=== PATIENT | male | born 1955 | race Caucasian/White ===

== ENCOUNTER 2017-02-03 12:52 | Inpatient (IN) | payer BC, OTHER ==
[~2017-02-03] VITALS: Ht 160 cm; Wt 76.8 kg
[~2017-02-03 12:52] MED LIST: AMLO-114 PO; ASPCH81 PO; ATOR-26 PO; CARV6.252 PO; INSPMPNVLG; ISOS60TA PO; LOSA1TAB38 PO; MAGN400T24 PO; NITR0.4S SL; PANT1TAB48 PO; PRAS1TAB6 PO
[2017-02-03] MEDS ORDERED: NITROGLYCERIN 0.4 MG SL PER TAB CHARGE SL STA (13:28)
--- NOTE | 2017-02-03 13:28 | EMERGENCY ROOM VISIT NOTE ---
History Report prepared by Vamshi: Abril Frederick Under the Supervision of: Dr. Billy Hammond M.D. First contact with patient: 13:16 Chief Complaint: CHEST PAIN Stated Complaint: CHEST PAIN,SOB History of Present Illness The patient is a 61 year old male who presents to the Emergency Room with complaints of intermittent chest pain and shortness of breath that began a few weeks ago. He notes that the pain and breathing difficulties are brought on with exertion. This morning, the patient went on the treadmill around 6AM for his routine workout and could only do about half of his workout before he developed chest pain and shortness of breath. He also began to feel nauseated this morning. Currently, he has slight shortness of breath and chest pain which he rates a 2/10 in severity. He took Nitro 3.5 hours ago when his pain was a 7-8 /10 with some relief. He takes a baby aspirin daily. He is also on Effient. The patient follows with Dr. Dc of [facility] due to a personal history of heart disease. His most recent heart catheterization was in April 2015 in [place]. He did not have stents placed at that time, but has had 9 stents placed in the past. He had an echo stress test last November. Denies black or bloody stool, abdominal pain, recent trauma or injury, or other complaints. Past medical history includes diabetes. He has an insulin pump and his sugars have been normal - his sugar this morning was 110. Source of History: patient, spouse/significant other Onset: a few weeks ago Position: chest Timing: intermittent Modifying Factors (Worsening): exertion Modifying Factors (Relieving): other (Nitro) Associated Symptoms: + SOB, + nausea, No abdominal pain, No hematochezia, No melena Review of Systems See HPI for pertinent positives & negatives. A total of 10 systems reviewed and were otherwise negative. Past Medical & Surgical Medical Problems: (1) Chest pain (2) Diabetes (3) Heart disease (4) SOB (shortness of breath) Surgical Problems: (1) Stented coronary artery Old medical records were reviewed. Nurse's notes were reviewed and I agree with. Family History Diabetes mellitus FH: heart disease Hypertension Social History Smoking Status: Never Smoker Alcohol Use: none Drug Use: none Marital Status: Housing Status: lives with significant other Occupation Status: employed Current/Historical Medications Scheduled Amlodipine (Norvasc), 10 MG PO DAILY Aspirin (Aspirin Tab-Chewable *), 81 MG PO QAM Atorvastatin (Lipitor), 80 MG PO DAILY Carvedilol (Coreg), 6.25 MG PO BID Insulin Aspart (novoLOG INSULIN PUMP ), 1 EA N/A UD Isosorbide Mononitrate (Imdur), 90 MG PO QPM Losartan Potassium (Cozaar), 100 MG PO DAILY Magnesium Oxide (Mag-Oxide), 400 MG PO MWF Nitroglycerin (Nitrostat), 0.4 MG SL PRN Pantoprazole (Protonix), 40 MG PO QPM Prasugrel Hcl (Effient), 10 MG PO QAM Allergies Coded Allergies: Clopidogrel (Verified Allergy, Unknown, HIVES, 02/03/17) Terbinafine (Verified Allergy, Unknown, HIVES, 02/03/17) Physical Exam Vital Signs Date Time Temp Pulse Resp B/P Pulse Ox O2 Delivery O2 Flow Rate FiO2 02/03/17 14:18 58 18 117/55 95 Room Air 02/03/17 13:46 57 16 133/54 95 02/03/17 13:32 58 18 134/65 95 02/03/17 13:18 59 02/03/17 12:57 97 Room Air 02/03/17 12:54 36.8 63 17 109/71 97 Room Air Physical Exam General: Non-ill appearing middle aged male. Well developed well nourished in no acute distress, breathing comfortably on room air. Normal speech HEENT: Normal cephalic atraumatic. Pupils are equal round and reactive to light. Sclerae anicteric. Extraocular movements are intact. Oropharynx is pink with moist mucous membranes. No swelling of the mouth lips or tongue. Neck: Supple with a midline trachea. No meningeal signs or stiffness, no JVD or bruits. No Stridor. Chest: Clear to auscultation bilaterally. No wheezes or rhonchi. No increased work of breathing. Heart: regular rate and rhythm. Abdomen: Soft nontender, nondistended without rebound guarding or rigidity. Extremities: No cyanosis clubbing or edema. No calf tenderness or assymetry Spine/Back. Non tender to palpation. No CVA tenderness Skin: Good turgor without rashes. Neurologic exam: Cranial nerves two through 12 are intact. Motor and sensation are intact and symmetrical throughout. Medical Decision & Procedures ER Provider Diagnostic Interpretation: Radiology results as stated below per my review and radiologist interpretation: CHEST ONE VIEW PORTABLE CLINICAL HISTORY: Atypical chest pain and shortness of breath COMPARISON STUDY: 05/08/2014 FINDINGS: The heart is mildly enlarged. There are postsurgical changes of a midline sternotomy. There is no focal pulmonary consolidation. There are no pleural effusions.[ IMPRESSION: No active disease in the chest. Electronically signed by: Joey Jara M.D. 02/03/2017 1:42 PM Dictated Date/Time: 02/03/2017 1:41 PM Laboratory Results 02/03/17 13:05 Red Blood Count 4.35, Mean Corpuscular Volume 89.0, Mean Corpuscular Hemoglobin 31.3, Mean Corpuscular Hemoglobin Concent 35.1, Mean Platelet Volume 9.5, Neutrophils (%) (Auto) 70.2, Lymphocytes (%) (Auto) 17.2, Monocytes (%) (Auto) 7.9, Eosinophils (%) (Auto) 4.0, Basophils (%) (Auto) 0.5, Neutrophils # (Auto) 6.57, Lymphocytes # (Auto) 1.61, Monocytes # (Auto) 0.74, Eosinophils # (Auto) 0.37, Basophils # (Auto) 0.05 02/03/17 13:05 Test 02/03/17 13:05 02/03/17 13:35 White Blood Count 9.36 K/uL (4.8-10.8) Red Blood Count 4.35 M/uL (4.7-6.1) Hemoglobin 13.6 g/dL (14.0-18.0) Hematocrit 38.7 % (42-52) Mean Corpuscular Volume 89.0 fL (80-100) Mean Corpuscular Hemoglobin 31.3 pg (25-34) Mean Corpuscular Hemoglobin Concent 35.1 g/dl (32-36) Platelet Count 259 K/uL (130-400) Mean Platelet Volume 9.5 fL (7.4-10.4) Neutrophils (%) (Auto) 70.2 % Lymphocytes (%) (Auto) 17.2 % Monocytes (%) (Auto) 7.9 % Eosinophils (%) (Auto) 4.0 % Basophils (%) (Auto) 0.5 % Neutrophils # (Auto) 6.57 K/uL (1.4-6.5) Lymphocytes # (Auto) 1.61 K/uL (1.2-3.4) Monocytes # (Auto) 0.74 K/uL (0.11-0.59) Eosinophils # (Auto) 0.37 K/uL (0-0.5) Basophils # (Auto) 0.05 K/uL (0-0.2) RDW Standard Deviation 42.7 fL (36.4-46.3) RDW Coefficient of Variation 13.0 % (11.5-14.5) Immature Granulocyte % (Auto) 0.2 % Immature Granulocyte # (Auto) 0.02 K/uL (0.00-0.02) Prothrombin Time 11.1 SECONDS (9.0-12.0) Prothromb Time International Ratio 1.0 (0.9-1.1) Activated Partial Thromboplast Time 27.5 SECONDS (21.0-31.0) Partial Thromboplastin Ratio 1.1 Anion Gap 9.0 mmol/L (3-11) Est Creatinine Clear Calc Drug Dose 78.1 ml/min Estimated GFR () 105.5 Estimated GFR (Non- 91.0 BUN/Creatinine Ratio 14.0 (10-20) Calcium Level 8.5 mg/dl (8.5-10.1) Total Bilirubin 0.6 mg/dl (0.2-1) Direct Bilirubin 0.2 mg/dl (0-0.2) Aspartate Amino Transf (AST/SGOT) 22 U/L (15-37) Alanine Aminotransferase (ALT/SGPT) 24 U/L (12-78) Alkaline Phosphatase 66 U/L (45-117) Total Creatine Kinase 151 U/L (39-308) Creatine Kinase MB 2.0 ng/ml (0.5-3.6) Creatine Kinase MB Ratio 1.3 (0-3.0) Total Protein 7.5 gm/dl (6.4-8.2) Albumin 3.6 gm/dl (3.4-5.0) Lipase 103 U/L (73-393) Bedside Troponin I 0.000 ng/ml (0-0.045) Laboratory studies as stated above per my review. Medications Administered Medications (Trade) Dose Ordered Sig/Navi Route Start Time Stop Time Status Last Admin Dose Admin Nitroglycerin (Nitrostat Tab) 0.4 mg NOW STAT SL 02/03/17 13:28 02/03/17 13:30 DC 02/03/17 13:36 0.4 MG ECG Indication: chest pain Rate (beats per minute): 60 Rhythm: normal sinus Findings: no acute ischemic change, no ectopy Comparison ECG Date: 05/09/14 Change: no significant change Change: Repeat EKG: Sinus bradycardia at 57 BPM. No ischemic changes or ectopy. No significant change compared to initial in-hospital EKG. ED Course 1321: Past medical records reviewed. The patient was evaluated in room C10, and a complete history and physical examination were performed. 1328: Ordered Nitroglycerin 0.4 mg SL. 1345: I reassessed the patient. His current pain was a 0/10. 1406: Upon reevaluation, the patient is resting comfortably and is not in any pain. I discussed the results and treatment plan with the patient. He verbalized agreement of the treatment plan. The patient will be evaluated for further management. 1439: I discussed the case with Dr. Pickering [facility]. The patient will be evaluated for further management. Medical Decision Differential diagnosis includes unstable angina, acute coronary syndrome, electrolyte or metabolic abnormality, infection, CHF. This patient comes in as described above. He's been having chest pain as a history that's concerning for unstable angina and it's mostly exertional has been getting worse. He has a history of significant cardiac disease in the past. IV access was established and blood work was obtained. EKG does not show any acute ischemic changes or acute STEMI or arrhythmia. I did a second EKG and is no change compared to EKG #1. The patient's cardiac enzymes are not elevated. Chest x-ray does not suggest congestive heart failure, pneumonia, or pneumothorax. He did have 2 out of 10 chest pain and was given nitroglycerin sublingual 1 and felt better. He has taken aspirin prior to arrival. I do think he needs to be admitted for further treatment and evaluation and rule out acute cardiac event. I did consult the [facility] hospitalist saw him in the ER and will admit him for these measures. Consults Time Called: [phone] Consulting Physician: Dr. Pickering [facility] Returned Call: [phone] I discussed the case with him. The patient will be evaluated for further management. Impression Primary Impression: Unstable angina Additional Impression: Precordial chest pain Scribe Attestation The scribe's documentation has been prepared under my direction and personally reviewed by me in its entirety. I confirm that the note above accurately reflects all work, treatment, procedures, and medical decision making performed by me. Departure Information Dispostion Being Evaluated By Hospitalist Referrals Josue Romeo M.D. (PCP) Patient Instructions My [facility] Problem Qualifiers
[2017-02-03 13:34] LABS: BASO % 0.5 %; BASO ABS # 0.05 K/uL (0-0.2); COMPLETE YES; HEMATOCRIT 38.7 % (42-52); IG% 0.2 %; LYMPH % 17.2 %; LYMPH ABS # 1.61 K/uL (1.2-3.4); MEAN CORPUSCULAR HEMOGLOBIN 31.3 pg (25-34); MEAN CORPUSCULAR HGB CONC 35.1 g/dl (32-36); MEAN PLATELET VOLUME 9.5 fL (7.4-10.4); MONO % 7.9 %; NEUT % 70.2 %; PLATELET COUNT 259 K/uL (130-400); RED BLOOD COUNT 4.35 M/uL (4.7-6.1); WHITE BLOOD COUNT 9.36 K/uL (4.8-10.8)
[2017-02-03 13:41] LABS: PARTIAL THROMBOPLASTIN RATIO 1.1; PROTHROMBIN TIME (PATIENT) 11.1 SECONDS (9.0-12.0)
[2017-02-03 13:42] LABS: CALCIUM 8.5 mg/dl (8.5-10.1); CREATININE 0.89 mg/dl (0.60-1.40)
--- NOTE | 2017-02-03 13:43 | DIAGNOSTIC IMAGING REPORT ---
CHEST ONE VIEW PORTABLE CLINICAL HISTORY: Atypical chest pain and shortness of breath COMPARISON STUDY: 05/08/2014 FINDINGS: The heart is mildly enlarged. There are postsurgical changes of a midline sternotomy. There is no focal pulmonary consolidation. There are no pleural effusions.[ IMPRESSION: No active disease in the chest. Electronically signed by: Joey Jara M.D. 02/03/2017 1:42 PM Dictated Date/Time: 02/03/2017 1:41 PM
[2017-02-03 13:47] LABS: CKMB/CK RATIO 1.3 (0-3.0)
[2017-02-03] MEDS ORDERED: MAGNESIUM HYDROXIDE SUSP 30 ML UDC PO PRN (14:30)
[2017-02-03] MEDS ORDERED: MoRPHine SULFATE 2 MG/ML CARP IV PRN (14:30)
[2017-02-03] MEDS ORDERED: ACETAMINOPHEN 325 MG TAB PO PRN (14:30)
[2017-02-03] MEDS ORDERED: ZOLPIDEM TARTRATE 5 MG TAB PO PRN (14:30)
[2017-02-03] MEDS ORDERED: ALUMINUM/MAGNESIUM/SIMETH (MAALOX MAX) 30 ML UDC PO PRN (14:30)
[2017-02-03] MEDS ORDERED: ONDANSETRON INJ 2 MG/ML 2 ML VIAL IV PRN (14:30)
[2017-02-03] MEDS ORDERED: POLYETHYLENE (MIRALAX) 17 GM PACK PO PRN (14:30)
[2017-02-03] MEDS ORDERED: NovoLOG INSULIN PUMP SCH ×2 (14:30→15:15)
[2017-02-03] MEDS ORDERED: NITROGLYCERIN 0.4 MG SL PER TAB CHARGE SL PRN (14:30)
--- NOTE | 2017-02-03 14:51 | History and Physical ---
History & Physical Date & Time of Service: Feb 03, 2017 at 14:43 Chief Complaint: Chest Pain,Sob Primary Care Physician: Josue Romeo M.D. History of Present Illness Source: patient 61 y/o M extensive CAD, HTN, IDDM presenting with intermittent central CP and SOB. Pain is central, triggered by exertion and relieved by rest. He works out on a treadmill for 30 min daily and has not been able to get through more than 15 min without developing SOB and CP. The symptoms started 2-3 weeks prior and have been progressive. He is on Ranexa as he does have a degree of chronic CP however his symptoms are not currently at baseline. He denies N/V, diaphoresis, radiation of the pain or lightheadedness. Initial troponin and EKG are not consistent with acute ischemia. Past Medical/Surgical History Medical Problems: 1) Diabetes - uses an insulin pump 2) HTN 3) HPL 4) CAD - Pt underwent CABG 2010 - [place] to LAD - SVG to OM He had a cath in 2013 resulting in 1 bare metal stent to his L circ and a total of 3 MARÍA to his LM, proximal circ, 2nd marginal He had an additional cath in 2013 after presenting with chest pain which did not show any significant occlusion Surgical Problems: (1) CABG - multiple caths/stents as above Family History Diabetes mellitus FH: heart disease Hypertension Father - dementia age 90 Mother alive age 91 - HTN , CVA Social History Retired [employer] Smoking Status: Never Smoker Drug Use: none Marital Status: Housing status: lives with family Occupational Status: employed Immunizations History of Influenza Vaccine: Yes History of Tetanus Vaccine?: Yes History of Pneumococcal: Yes History of Hepatitis B Vaccine: No Multi-Drug Resistant Organisms History of MDRO: No Allergies Coded Allergies: Clopidogrel (Verified Allergy, Unknown, HIVES, 02/03/17) Terbinafine (Verified Allergy, Unknown, HIVES, 02/03/17) Home Medications Scheduled Amlodipine (Norvasc), 10 MG PO DAILY Aspirin (Aspirin Tab-Chewable *), 81 MG PO QAM Atorvastatin (Lipitor), 80 MG PO DAILY Carvedilol (Coreg), 6.25 MG PO BID Insulin Aspart (novoLOG INSULIN PUMP ), 1 EA N/A UD Isosorbide Mononitrate (Imdur), 90 MG PO QPM Losartan Potassium (Cozaar), 100 MG PO DAILY Magnesium Oxide (Mag-Oxide), 400 MG PO MWF Nitroglycerin (Nitrostat), 0.4 MG SL PRN Pantoprazole (Protonix), 40 MG PO QPM Prasugrel Hcl (Effient), 10 MG PO QAM Review of Systems Constitutional: No chills, No fever, No sweats Eyes: No eye pain, No worsening of vision ENT: No hearing loss, No nasal symptoms, No unusual epistaxis Respiratory: + dyspnea on exertion, No cough, No sputum, No wheezing Cardiovascular: + chest pain, No PND, No orthopnea Abdomen: No nausea, No pain, No vomiting Musculoskeletal: No joint pain, No muscle pain Genitourinary - Male: No dysuria, No hematuria, No urinary frequency Neurologic: No memory loss, No paralysis, No weakness Psychiatric: No depression symptoms Endocrine: No fatigue Hematologic / Lymphatic: No abnormal bleeding/bruising Integumentary: No rash Allergic / Immunologic: No environmental allergies Physical Exam Vital Signs Date Time Temp Pulse Resp B/P Pulse Ox O2 Delivery O2 Flow Rate FiO2 02/03/17 14:18 58 18 117/55 95 Room Air 02/03/17 13:46 57 16 133/54 95 02/03/17 13:32 58 18 134/65 95 02/03/17 13:18 59 02/03/17 12:57 97 Room Air 02/03/17 12:54 36.8 63 17 109/71 97 Room Air Diagnostics Laboratory Results Results Past 24 Hours Test 02/03/17 13:05 02/03/17 13:35 Range/Units White Blood Count 9.36 4.8-10.8 K/uL Red Blood Count 4.35 4.7-6.1 M/uL Hemoglobin 13.6 14.0-18.0 g/dL Hematocrit 38.7 42-52 % Mean Corpuscular Volume 89.0 80-100 fL Mean Corpuscular Hemoglobin 31.3 25-34 pg Mean Corpuscular Hemoglobin Concent 35.1 32-36 g/dl Platelet Count 259 130-400 K/uL Mean Platelet Volume 9.5 7.4-10.4 fL Neutrophils (%) (Auto) 70.2 % Lymphocytes (%) (Auto) 17.2 % Monocytes (%) (Auto) 7.9 % Eosinophils (%) (Auto) 4.0 % Basophils (%) (Auto) 0.5 % Neutrophils # (Auto) 6.57 1.4-6.5 K/uL Lymphocytes # (Auto) 1.61 1.2-3.4 K/uL Monocytes # (Auto) 0.74 0.11-0.59 K/uL Eosinophils # (Auto) 0.37 0-0.5 K/uL Basophils # (Auto) 0.05 0-0.2 K/uL RDW Standard Deviation 42.7 36.4-46.3 fL RDW Coefficient of Variation 13.0 11.5-14.5 % Immature Granulocyte % (Auto) 0.2 % Immature Granulocyte # (Auto) 0.02 0.00-0.02 K/uL Prothrombin Time 11.1 9.0-12.0 SECONDS Prothromb Time International Ratio 1.0 0.9-1.1 Activated Partial Thromboplast Time 27.5 21.0-31.0 SECONDS Partial Thromboplastin Ratio 1.1 Sodium Level 141 136-145 mmol/L Potassium Level 4.0 3.5-5.1 mmol/L Chloride Level 108 98-107 mmol/L Carbon Dioxide Level 24 21-32 mmol/L Anion Gap 9.0 3-11 mmol/L Blood Urea Nitrogen 13 7-18 mg/dl Creatinine 0.89 0.60-1.40 mg/dl Est Creatinine Clear Calc Drug Dose 78.1 ml/min Estimated GFR () 105.5 Estimated GFR (Non- 91.0 BUN/Creatinine Ratio 14.0 10-20 Random Glucose 168 70-99 mg/dl Calcium Level 8.5 8.5-10.1 mg/dl Total Bilirubin 0.6 0.2-1 mg/dl Direct Bilirubin 0.2 0-0.2 mg/dl Aspartate Amino Transf (AST/SGOT) 22 15-37 U/L Alanine Aminotransferase (ALT/SGPT) 24 12-78 U/L Alkaline Phosphatase 66 45-117 U/L Total Creatine Kinase 151 39-308 U/L Creatine Kinase MB 2.0 0.5-3.6 ng/ml Creatine Kinase MB Ratio 1.3 0-3.0 Total Protein 7.5 6.4-8.2 gm/dl Albumin 3.6 3.4-5.0 gm/dl Lipase 103 73-393 U/L Bedside Troponin I 0.000 0-0.045 ng/ml EKG Sinus jannie 57BPM - inf Q waves Impression Assessment and Plan 61 y/o M extensive CAD, HTN, IDDM presenting with intermittent central CP and SOB. Pain is central, triggered by exertion and relieved by rest. He works out on a treadmill for 30 min daily and has not been able to get through more than 15 min without developing SOB and CP. The symptoms started 2-3 weeks prior and have been progressive. He is on Ranexa as he does have a degree of chronic CP however his symptoms are not currently at baseline. He denies N/V, diaphoresis, radiation of the pain or lightheadedness. Initial troponin and EKG are not consistent with acute ischemia. 1) CP and SOB, History of severe CAD - Pt will be monitored on telemetry - evaluation by his doll eye setter is requested - serial troponins - cont B gonsalo , ASA, Effient, Ranexa, Imdur, Atorvastatin. Further workup will to be determined by his doll eye setter although it should be noted that a simple treadmill EKG may provide useful information considering the nature of his symptoms. 2) IDDM - can continue to use pump in hospital 3) HTN - Cont Imdur, Cozaar, Carvedilol 4) HPL - cont Statin Full code - Heparin prophylaxis Total time for this admit including review of labs, EKG, previous records - discussion with pt and ER attending - 35 min Level of Care Telemetry Resuscitation Status FULL RESUSCITATION VTE Prophylaxis VTE Risk Assessment Done? Y/N: Yes Risk Level: Moderate Given or contraindicated: Unfractionated heparin SQ
[2017-02-03] MEDS ORDERED: GLUCOSE 10 TABS/TUBE PO PRN (15:15)
[2017-02-03] MEDS ORDERED: GLUCAGON FOR INJ 1 MG VIAL SQ PRN (15:15)
[2017-02-03] MEDS ORDERED: GLUCOSE 40% GEL 15 GM TUBE PO PRN (15:15)
[2017-02-03] MEDS ORDERED: INSULIN ASPART 100 UNITS/ML VIAL SC PRN (15:15)
[2017-02-03] MEDS ORDERED: DEXTROSE 50% 50 ML SYR IV PRN (15:15)
[2017-02-03] MEDS ORDERED: IV FLUIDS COMPLETED PRN (15:30)
[2017-02-03 15:43] VITALS: Ht 160 cm; Wt 76.8 kg
[2017-02-03 16:00] VITALS: O2SAT 96
[2017-02-03 16:15] VITALS: BP 157/74; PULSE 57; TEMP 36.6; O2SAT 95
[2017-02-03 19:47] VITALS: BP 131/72; PULSE 62; TEMP 36.9; O2SAT 94
[2017-02-03] MEDS: PANTOprazole SOD 40 MG TAB PO SCH (20:43)
[2017-02-03] MEDS: CARVEDILOL 6.25 MG TAB PO SCH (20:43)
[2017-02-03] MEDS: RANOLAZINE 500 MG ER TAB PO SCH (20:48)
[2017-02-03] MEDS ORDERED: ISOSORBIDE MONONITRATE 60 MG TABCR PO SCH (21:00)
[2017-02-03] MEDS: HEPARIN SOD 5000 UNIT/0.5 ML CARP SQ SCH (21:43)
[2017-02-03 23:11] VITALS: BP 109/55; PULSE 61; TEMP 36.9; O2SAT 94
[2017-02-04] VITALS (10 sets, daily range): BP systolic 94–136; BP diastolic 55–68; PULSE 55–62; TEMP 36.5–36.9; O2SAT 95–97
[2017-02-04] MEDS: HEPARIN SOD 5000 UNIT/0.5 ML CARP SQ SCH ×3 (06:13→22:03)
[2017-02-04] MEDS: ATORVASTATIN 40 MG TAB PO SCH (08:49)
[2017-02-04] MEDS: MAGNESIUM OXIDE 400 MG TAB PO SCH (08:50)
[2017-02-04] MEDS: PRASugrel TAB 10 MG TAB PO SCH (08:50)
[2017-02-04] MEDS: ASPIRIN 81 MG CHEW PO SCH (08:50)
[2017-02-04] MEDS: CARVEDILOL 6.25 MG TAB PO SCH ×2 (08:51→21:00)
[2017-02-04] MEDS: LOSARTAN POTASSIUM 50 MG TAB PO SCH (08:51)
[2017-02-04] MEDS: AMLODIPINE BESYLATE 5 MG TAB PO SCH (08:52)
[2017-02-04] MEDS: RANOLAZINE 500 MG ER TAB PO SCH ×2 (08:52→21:01)
--- NOTE | 2017-02-04 12:17 | Progress Note ---
Subjective Date of Service: Feb 04, 2017. Subjective Pt evaluation today including: conversation w/ patient, physical exam, chart review, lab review, review of studies, review of inpatient medication list Pain: chest pain currently 1 out of 10 Voiding: no voiding problems Pt is seen and examined by me. pt is c/o of sub sternal Cp, 1/10, non radiating to left arm, jaw or shoulder. 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 Pt has a extensive history of CAD S/P CABG , and followed by four stents out of which three was placed in 2012, and one was placed in 2013. Pt states he has some nausea at the time of presentation to ER, and that is indicative for him that some thing is wrong and he need to go to seek help. Pt denies abd pain, nausea, vomiting and diarrhea. pt denies epigastric pain and blurry vision and headache.Pt has a history of type1 DM since age 4, also HTN and DLP. Problem List Medical Problems: (1)Substernal chest pain Status: Acute (2) Unstable angina Status: Acute (3) Diabetes - uses an insulin pump Status: Chronic (2) HTN Status: Chronic (3) HPL Status: Chronic 4) CAD - Pt underwent CABG 2010 - HINTON to LAD - SVG to OM as well as Stenting in 2012 and 2013, Last cath April 2015 Status: Chronic Review of Systems Cardiac: + chest pain All Other Systems: Reviewed and Negative Medications Medications (Trade) Dose Ordered Sig/Navi Route Start Time Stop Time Status Last Admin Dose Admin Nitroglycerin (Nitrostat Tab) 0.4 mg NOW STAT SL 02/03/17 13:28 02/03/17 13:30 DC 02/03/17 13:36 0.4 MG Amlodipine Besylate (Norvasc Tab) 10 mg DAILY PO 02/04/17 09:00 03/06/17 08:59 02/04/17 08:52 10 MG Aspirin (Aspirin Chew) 81 mg QAM PO 02/04/17 09:00 03/06/17 08:59 02/04/17 08:50 81 MG Atorvastatin Calcium (Lipitor Tab) 80 mg DAILY PO 02/04/17 09:00 03/06/17 08:59 02/04/17 08:49 80 MG Carvedilol (Coreg Tab) 6.25 mg BID PO 02/03/17 21:00 03/05/17 20:59 02/04/17 08:51 6.25 MG Isosorbide Mononitrate (Imdur Ext Rel Tab) 90 mg QPM PO 02/03/17 21:00 03/05/17 20:59 02/03/17 20:44 90 MG Losartan Potassium (coZAAR TAB) 100 mg DAILY PO 02/04/17 09:00 03/06/17 08:59 02/04/17 08:51 100 MG Magnesium Oxide (Mag-Ox Tab) 400 mg DAILY PO 02/04/17 09:00 03/06/17 08:59 02/04/17 08:50 400 MG Pantoprazole Sodium (Protonix Tab) 40 mg QPM PO 02/03/17 21:00 03/05/17 20:59 02/03/17 20:43 40 MG Prasugrel (effiENT TAB) 10 mg QAM PO 02/04/17 09:00 03/06/17 08:59 02/04/17 08:50 10 MG Heparin Sodium (Porcine) (Heparin Sq 5000 Unit/0.5ml) 5,000 unit Q8 SQ 02/03/17 22:00 03/05/17 21:59 02/04/17 06:13 5,000 UNIT Ranolazine (Ranexa ER Tab) 500 mg BID PO 02/03/17 21:00 03/05/17 20:59 02/04/17 08:52 500 MG Objective Vital Signs Date Time Temp Pulse Resp B/P Pulse Ox O2 Delivery O2 Flow Rate FiO2 02/04/17 11:31 36.8 55 18 112/66 97 Room Air 02/04/17 08:40 62 118/65 02/04/17 08:00 96 Room Air 02/04/17 07:47 36.7 60 18 94/55 96 Room Air 02/04/17 05:25 36.9 60 18 110/56 95 Room Air 02/04/17 04:14 Room Air 02/04/17 00:00 Room Air 02/03/17 23:11 36.9 61 20 109/55 94 Room Air 02/03/17 20:00 Room Air 02/03/17 19:47 36.9 62 20 131/72 94 Room Air 02/03/17 16:15 36.6 57 18 157/74 95 Room Air 02/03/17 16:00 96 Room Air 02/03/17 15:50 60 18 122/68 96 02/03/17 15:43 Room Air 02/03/17 15:04 58 18 126/61 96 Room Air 02/03/17 14:18 58 18 117/55 95 Room Air 02/03/17 13:46 57 16 133/54 95 02/03/17 13:32 58 18 134/65 95 02/03/17 13:18 59 02/03/17 12:57 97 Room Air 02/03/17 12:54 36.8 63 17 109/71 97 Room Air Physical Exam General Appearance: WD/WN, no apparent distress Eyes: normal inspection, EOMI Neck: supple, no adenopathy, no JVD Respiratory/Chest: chest non-tender, lungs clear, normal breath sounds, no respiratory distress, no accessory muscle use Cardiovascular: regular rate, rhythm, no edema, no gallop, no murmur Abdomen: normal bowel sounds, non tender, soft, no pulsatile mass Extremities: normal range of motion, non-tender, normal inspection, no pedal edema, no calf tenderness Neurologic/Psychiatric: no motor/sensory deficits, alert, normal mood/affect, oriented x 3 Skin: normal color, warm/dry, no rash Comments: Last Resulted CBC 02/03/17 13:05 Red Blood Count 4.35, Mean Corpuscular Volume 89.0, Mean Corpuscular Hemoglobin 31.3, Mean Corpuscular Hemoglobin Concent 35.1, Mean Platelet Volume 9.5, Neutrophils (%) (Auto) 70.2, Lymphocytes (%) (Auto) 17.2, Monocytes (%) (Auto) 7.9, Eosinophils (%) (Auto) 4.0, Basophils (%) (Auto) 0.5, Neutrophils # (Auto) 6.57, Lymphocytes # (Auto) 1.61, Monocytes # (Auto) 0.74, Eosinophils # (Auto) 0.37, Basophils # (Auto) 0.05 Last Resulted BMP 02/03/17 13:05 Laboratory Results Last 24 Hours Test 02/03/17 13:05 02/03/17 13:35 02/03/17 16:32 02/03/17 16:42 White Blood Count 9.36 K/uL Red Blood Count 4.35 M/uL Hemoglobin 13.6 g/dL Hematocrit 38.7 % Mean Corpuscular Volume 89.0 fL Mean Corpuscular Hemoglobin 31.3 pg Mean Corpuscular Hemoglobin Concent 35.1 g/dl Platelet Count 259 K/uL Mean Platelet Volume 9.5 fL Neutrophils (%) (Auto) 70.2 % Lymphocytes (%) (Auto) 17.2 % Monocytes (%) (Auto) 7.9 % Eosinophils (%) (Auto) 4.0 % Basophils (%) (Auto) 0.5 % Neutrophils # (Auto) 6.57 K/uL Lymphocytes # (Auto) 1.61 K/uL Monocytes # (Auto) 0.74 K/uL Eosinophils # (Auto) 0.37 K/uL Basophils # (Auto) 0.05 K/uL RDW Standard Deviation 42.7 fL RDW Coefficient of Variation 13.0 % Immature Granulocyte % (Auto) 0.2 % Immature Granulocyte # (Auto) 0.02 K/uL Prothrombin Time 11.1 SECONDS Prothromb Time International Ratio 1.0 Activated Partial Thromboplast Time 27.5 SECONDS Partial Thromboplastin Ratio 1.1 Sodium Level 141 mmol/L Potassium Level 4.0 mmol/L Chloride Level 108 mmol/L Carbon Dioxide Level 24 mmol/L Anion Gap 9.0 mmol/L Blood Urea Nitrogen 13 mg/dl Creatinine 0.89 mg/dl Est Creatinine Clear Calc Drug Dose 78.1 ml/min Estimated GFR () 105.5 Estimated GFR (Non- 91.0 BUN/Creatinine Ratio 14.0 Random Glucose 168 mg/dl Calcium Level 8.5 mg/dl Total Bilirubin 0.6 mg/dl Direct Bilirubin 0.2 mg/dl Aspartate Amino Transf (AST/SGOT) 22 U/L Alanine Aminotransferase (ALT/SGPT) 24 U/L Alkaline Phosphatase 66 U/L Total Creatine Kinase 151 U/L Creatine Kinase MB 2.0 ng/ml Creatine Kinase MB Ratio 1.3 Total Protein 7.5 gm/dl Albumin 3.6 gm/dl Lipase 103 U/L Bedside Troponin I 0.000 ng/ml Troponin I < 0.015 ng/ml Bedside Glucose 51 mg/dl Test 02/03/17 17:02 02/03/17 19:56 02/03/17 22:18 Bedside Glucose 80 mg/dl 77 mg/dl Troponin I < 0.015 ng/ml Assessment and Plan 1) CP Substernal, possible secondary to Unstable Angina with history of severe CAD s/p CABG and extensive stenting in 2012 and 2013 possible 4 stents per patient. Last cath april 2015 per pt unremarkable. - We will continue to monitor pt in telemetry , - Cardiology consult pending, so far negative troponin. - Cont B gonsalo, ASA, Effient, Ranexa, Imdur, Atorvastatin. Further workup as per cardiology. 2) IDDM - Can continue to use pump in hospital. 3) HTN - Cont Imdur, Cozaar, Carvedilol 4) HPL - cont Statin Continued [facility] stay due to: other (pending cardiology) Discharge planning: home
--- NOTE | 2017-02-04 15:20 | CARDIOLOGY CONSULTATION ---
DATE OF CONSULTATION: 02/04/2017 INPATIENT CONSULTATION CONSULTATION REQUESTED BY: Dr. Pickering. REASON FOR CONSULTATION: Chest pain and shortness of breath. HISTORY OF PRESENT ILLNESS: Mr. Ornelas is a very cardiovascularly complex 61-year-old gentleman who presented to [facility] on 02/03/2017 with a complaint of worsening chest pain and shortness of breath. The patient has an extensive cardiac history and normally follows as an outpatient with Dr. Dc of our cardiology practice. The patient states that for the last 2 weeks, he has noticed that he has been developing worsening dyspnea with exertion. 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 He has also noticed that when he walks on his treadmill on a daily basis, he just is not able to do the distance that he previously was. He states that normally he is able to do 30 minutes without any issue, but recently he has only been able to do 10 or 15 minutes and then had to stop because of shortness of breath and/or chest discomfort. 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 He was just walking around slowly, when he developed significant substernal left-sided chest pain which he described as a pressure/stabbing sensation, associated with significant shortness of breath and nausea. He took 2 sublingual nitroglycerin with minimal relief. It was really the addition of the nausea that concerned him and he came into [facility] for further evaluation. In the Emergency Department, his EKG and cardiac enzymes were unremarkable and he was admitted to telemetry, being maintained on his outpatient medical regimen. Currently, the patient is without complaint at rest, but he states he knows if he gets up to walk, he will again develop chest discomfort, so he has been avoiding that. He has been compliant with all of his medications and states that he has not missed any doses of any medications whatsoever. PAST SURGICAL HISTORY: 1. Coronary artery bypass grafting surgery x2 in 2010 with a HINTON to the LAD and vein graft to the OM. 2. Angioplasty with Rotablator and bare-metal stent to the left main and left circumflex after the vein graft to the circumflex noted to be occluded on 08/27/2013. 3. In-stent restenosis of the LAD and left circumflex, receiving drug-eluting stents to the left main, proximal circumflex and second marginal in 2012. 4. Restenosis of the proximal circumflex with repeat intervention in April 2014. 5. Most recent cardiac catheterization April 2015 showing no progression of disease. 6. Appendectomy. 7. Laparoscopic cholecystectomy. 8. Sinus surgery. 9. Carpal tunnel surgery. MEDICAL ILLNESSES: 1. Complex coronary artery disease as above. 2. Type 1 diabetes. 3. Hypertension. 4. Dyslipidemia. 5. GERD. FAMILY HISTORY: Noncontributory. SOCIAL HISTORY: Denies any alcohol, tobacco or recreational drug use. He is and lives at home with his . 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 REVIEW OF SYSTEMS: As per HPI, all other review of systems reviewed and negative at this time. ALLERGIES: 1. PLAVIX. 2. LAMISIL. 3. LISINOPRIL. MEDICATIONS: 1. Coreg 12.5 mg q.a.m., 6.25 mg q.p.m. 2. Ranexa 500 mg b.i.d. 3. Effient 10 mg daily. 4. Imdur 120 mg daily. 5. Amlodipine 10 mg daily. 6. Cozaar 100 mg daily. 7. Atorvastatin 80 mg daily. 8. Aspirin 81 mg daily. 9. Magnesium oxide 3 times a week. 10. Sublingual nitroglycerin p.r.n. 11. Insulin pump. PHYSICAL EXAMINATION: VITALS: Temperature 36.8, pulse 55, respiratory rate 12, blood pressure 112/66. GENERAL: Awake, alert, oriented x3, in no acute distress, sitting upright in bed, eating lunch. HEENT: Normocephalic, atraumatic. Pupils equal, round, and reactive to light and accommodation. Extraocular muscles intact. Anicteric sclerae. Moist mucous membranes. NECK: No JVD, no bruit. CARDIOVASCULAR: Regular. Positive S4. Normal S1 and S2. No S3. No murmurs or rubs. PULMONARY: Clear to auscultation bilaterally. No rales, rhonchi, or wheezing. ABDOMEN: Bowel sounds x4, soft. No rebound, guarding, tenderness. No organomegaly. EXTREMITIES: No clubbing, cyanosis or edema. +2 pedal pulses bilaterally. SKIN: Warm and dry. TEST RESULTS: A 12-lead EKG performed in the Emergency Department independently reviewed at this time shows normal sinus rhythm at 60 beats per minute, normal axis, normal intervals, essentially normal study. No significant change compared to previous studies. LABORATORY STUDIES OF SIGNIFICANCE: Troponin negative x3. CPK of 151. A 2D echocardiogram is pending at this time. IMPRESSION: 1. Worsening angina. 2. Complex coronary artery disease. 3. Type 1 diabetes. 4. Hypertension. 5. Dyslipidemia. RECOMMENDATIONS: It is my pleasure to see Mr. Ornelas in consultation today. Given his complex history, our options were discussed with the patient and his family in great detail. He was given the option of either performing a Lexiscan nuclear stress test as an inpatient and then likely proceeding with cardiac catheterization in [place] or proceeding directly to cardiac catheterization in [place], given his complex disease. The patient states that he would prefer to undergo stress testing first. So at this time, the patient will be ordered a Lexiscan nuclear stress test. Likely, he has not had any caffeine in quite some time. He will be made n.p.o. after midnight. Otherwise will be continued on his outpatient medical regimen and further recommendations to follow.
[2017-02-04] MEDS ORDERED: ISOSORBIDE MONONITRATE 60 MG TABCR PO SCH (21:00)
[2017-02-04] MEDS: PANTOprazole SOD 40 MG TAB PO SCH (21:01)
[2017-02-05 03:47] VITALS: BP 114/60; PULSE 51; TEMP 36.6; O2SAT 94
[2017-02-05] MEDS: HEPARIN SOD 5000 UNIT/0.5 ML CARP SQ SCH ×2 (05:52→14:12)
[2017-02-05 07:30] VITALS: BP 109/58; PULSE 51; TEMP 36.8; O2SAT 97
[2017-02-05 08:00] VITALS: O2SAT 97
[2017-02-05] MEDS ORDERED: REGADENOSON 0.4 MG/5 ML SYR ONE (09:52)
[2017-02-05] MEDS: MAGNESIUM OXIDE 400 MG TAB PO SCH (12:16)
[2017-02-05] MEDS: LOSARTAN POTASSIUM 50 MG TAB PO SCH (12:16)
[2017-02-05] MEDS: CARVEDILOL 6.25 MG TAB PO SCH (12:16)
[2017-02-05] MEDS: PRASugrel TAB 10 MG TAB PO SCH (12:17)
[2017-02-05] MEDS: AMLODIPINE BESYLATE 5 MG TAB PO SCH (12:17)
[2017-02-05] MEDS: ATORVASTATIN 40 MG TAB PO SCH (12:17)
[2017-02-05] MEDS: RANOLAZINE 500 MG ER TAB PO SCH (12:17)
[2017-02-05] MEDS: ASPIRIN 81 MG CHEW PO SCH (12:19)
[2017-02-05 12:20] VITALS: O2SAT 97
--- NOTE | 2017-02-05 12:55 | Hospitalist Progress Note ---
Hospitalist Progress Note Date of Service Feb 05, 2017. Subjective Pt evaluation today including: conversation w/ patient, physical exam, chart review, lab review, review of studies, review of inpatient medication list Voiding: no voiding problems, no incontinence Patient states he is feeling well at present. Just got back from exercise stress test. +intermittent CP. Currently NPO. Patient denies any fever, chills, sweats, lightheadedness, dizziness, vision changes, palpitations, edema, SOB, wheezing, cough, abdominal pain, nausea, vomiting, diarrhea, urinary symptoms, melena, numbness/tingling, weakness, muscle/joint pain, anxiety/depression, active bleeding, or new skin discoloration/changes. Medications Current Inpatient Medications Medications (Trade) Dose Ordered Sig/Navi Route Start Time Stop Time Status Last Admin Dose Admin Amlodipine Besylate (Norvasc Tab) 10 mg DAILY PO 02/04/17 09:00 03/06/17 08:59 02/05/17 12:17 10 MG Aspirin (Aspirin Chew) 81 mg QAM PO 02/04/17 09:00 03/06/17 08:59 02/05/17 12:19 81 MG Atorvastatin Calcium (Lipitor Tab) 80 mg DAILY PO 02/04/17 09:00 03/06/17 08:59 02/05/17 12:17 80 MG Carvedilol (Coreg Tab) 6.25 mg BID PO 02/03/17 21:00 03/05/17 20:59 02/05/17 12:16 6.25 MG Losartan Potassium (coZAAR TAB) 100 mg DAILY PO 02/04/17 09:00 03/06/17 08:59 02/05/17 12:16 100 MG Magnesium Oxide (Mag-Ox Tab) 400 mg DAILY PO 02/04/17 09:00 03/06/17 08:59 02/05/17 12:16 400 MG Pantoprazole Sodium (Protonix Tab) 40 mg QPM PO 02/03/17 21:00 03/05/17 20:59 02/04/17 21:01 40 MG Prasugrel (effiENT TAB) 10 mg QAM PO 02/04/17 09:00 03/06/17 08:59 02/05/17 12:17 10 MG Heparin Sodium (Porcine) (Heparin Sq 5000 Unit/0.5ml) 5,000 unit Q8 SQ 3/11/17 22:00 03/05/17 21:59 02/05/17 05:52 5,000 UNIT Acetaminophen (Tylenol Tab) 650 mg Q4H PRN PO 02/03/17 14:30 03/05/17 14:29 Al Hydrox/Mg Hydrox/Simethicone (Maalox Max Susp) 15 ml Q4H PRN PO 02/03/17 14:30 03/05/17 14:29 Magnesium Hydroxide (Milk Of Magnesia Susp) 30 ml Q12H PRN PO 02/03/17 14:30 03/05/17 14:29 Zolpidem Tartrate (Ambien Tab) 5 mg HSZ PRN PO 02/03/17 14:30 03/05/17 14:29 Ondansetron HCl (Zofran Inj) 4 mg Q6H PRN IV 02/03/17 14:30 03/05/17 14:29 Nitroglycerin (Nitrostat Tab) 0.4 mg UD PRN SL 02/03/17 14:30 03/05/17 14:29 Morphine Sulfate (MoRPHine SULFATE INJ) 2 mg Q30M PRN IV 02/03/17 14:30 02/17/17 14:29 Polyethylene (Miralax Powder Packet) 17 gm DAILY PRN PO 02/03/17 14:30 03/05/17 14:29 Insulin Aspart (novoLOG INSULIN PUMP) 1 ea pt self-managed N/A 02/03/17 15:15 03/05/17 15:14 Insulin Aspart (novoLOG ASPART) SLIDING SCALE PRN PRN SC 02/03/17 15:15 03/05/17 15:14 Glucose (Glucose 40% Gel) UD PRN PO 02/03/17 15:15 03/05/17 15:14 Glucose (Glucose Chew Tab) 1 tabs UD PRN PO 02/03/17 15:15 03/05/17 15:14 Glucagon (Glucagon Inj) 1 mg UD PRN SQ 02/03/17 15:15 03/05/17 15:14 Dextrose (Dextrose 50% 50ML Syringe) 50 ml UD PRN IV 02/03/17 15:15 03/05/17 15:14 Miscellaneous (Iv Fluids Completed) 1 ea PRN PRN N/A 02/03/17 15:30 02/03/18 15:29 Ranolazine (Ranexa ER Tab) 500 mg BID PO 02/03/17 21:00 03/05/17 20:59 02/05/17 12:17 500 MG Isosorbide Mononitrate (Imdur Ext Rel Tab) 120 mg QPM PO 02/04/17 21:00 03/06/17 20:59 02/04/17 21:01 120 MG Objective Vital Signs Date Time Temp Pulse Resp B/P Pulse Ox O2 Delivery O2 Flow Rate FiO2 02/05/17 12:20 97 Room Air 02/05/17 08:00 97 Room Air 02/05/17 07:30 36.8 51 18 109/58 97 Room Air 02/05/17 04:00 Room Air 02/05/17 03:47 36.6 51 16 114/60 94 Room Air 02/05/17 00:00 Room Air 02/04/17 22:58 36.6 61 20 95/57 95 Room Air 02/04/17 20:57 36.5 55 20 136/65 97 Room Air 02/04/17 20:00 Room Air 02/04/17 16:00 96 Room Air 02/04/17 15:36 36.7 56 18 134/68 95 Room Air Physical Exam General Appearance: no apparent distress Eyes: normal inspection, PERRL ENT: hearing grossly normal Neck: supple Respiratory/Chest: lungs clear, no respiratory distress, no accessory muscle use Cardiovascular: regular rate, rhythm Abdomen: normal bowel sounds, non tender, soft Extremities: no pedal edema, no calf tenderness Neurologic/Psychiatric: alert, normal mood/affect, oriented x 3 Skin: normal color, warm/dry, no rash Assessment and Plan 61 y/o M extensive CAD, HTN, IDDM presenting with intermittent central CP and SOB. Pain is central, triggered by exertion and relieved by rest. He works out on a treadmill for 30 min daily and has not been able to get through more than 15 min without developing SOB and CP. The symptoms started 2-3 weeks prior and have been progressive. He is on Ranexa as he does have a degree of chronic CP however his symptoms are not currently at baseline. He denies N/V, diaphoresis, radiation of the pain or lightheadedness. Initial troponin and EKG are not consistent with acute ischemia. CP Substernal, possible secondary to unstable angina with history of severe CAD s/p CABG and extensive stenting in 2012 and 2013 possible 4 stents per patient. Last cath April 2015 per pt unremarkable. - Admit to tele for cardiac monitoring--> reviewed, NSR, episodes of bradycardia and PVCs - Trend cardiac enzymes- negative - Cont BB, ASA, Effient, Ranexa, Imdur, Atorvastatin - Cardiology consulted, appreciate recommendations -- Exercise stress pending, ?transfer to [facility] for cath IDDM: Continue insulin pump HTN: Continue Imdur, Cozaar, Carvedilol HPL: Continue Statin GERD: Continue Protonix daily GI Prophylaxis: Maalox PRN, IV Zofran PRN, Colace and/or Milk of Mag PRN DVT prophylaxis: Heparin 5000 units SQ q12 hrs, BELEN and SCDs Code Status: LEVEL I, FULL
--- NOTE | 2017-02-05 14:46 | MYOCARDIAL PERFUSION SCAN ---
INPATIENT 1-DAY NUCLEAR MEDICINE TECHNETIUM-99 CARDIOLITE MYOCARDIAL PERFUSION SCAN CLINICAL HISTORY: Known coronary artery disease with bypass grafting and numerous PCIs. COMPARISON STUDY: None. TECHNIQUE: For the stress portion of the study, 32.9 mCi of Technetium 99 m Cardiolite IV was injected at 11:20 a.m. on 02/05/2017. Thirty minutes following the injection, imaging of the heart was performed in multiple projections. For the rest portion of the study, 9.8 mCi of Technetium 99 m Cardiolite was injected IV at 9:25 a.m. One hour following the injection, imaging of the heart was performed in the same projections. EKG: Resting EKG showed normal sinus rhythm at 61 beats per minute, normal axis, normal intervals, normal study. Stress EKG showed no ischemic EKG changes. FINDINGS: There was homogeneous technetium uptake throughout the entire myocardium. Normal gated imaging with normal LV systolic function without regional wall motion abnormality. EF calculated to be 63%. IMPRESSION: Nonischemic Lexiscan nuclear stress test, normal left ventricular systolic function without regional wall motion abnormality. Ejection fraction 63%
[2017-02-05 15:03] VITALS: BP 123/62; PULSE 57; TEMP 36.8; O2SAT 96
[2017-02-05] MEDS ORDERED: IMDSR60 PO ×2 (15:07→15:09)
[2017-02-05] MEDS ORDERED: RNXER500 PO ×2 (15:07→15:09)
--- NOTE | 2017-02-05 15:09 | Discharge Instructions ---
Discharge Instructions Date of Service Feb 05, 2017. Admission Reason for Admission: Chest Pain, Sob (Shortness Of Breath) Discharge Discharge Diagnosis / Problem: chest pain has rule out acs Discharge Goals Goal(s): Decrease discomfort, Improve function, Increase independence, Improve disease control, Improve nutritional status, Learn about illness, Diagnostic testing, Therapeutic intervention, Prevent Disease Progression, Specific goals Activity Recommendations Activity Limitations: resume your previous activity Lifting Limitations: none Exercise/Sports Limitations: none May Resume Sexual Activity: when tolerated Shower/Bathe: no limitations Driving or Machine Use: no limitations . Instructions / Follow-Up Instructions / Follow-Up you have chest pain and shortness of breathing, which is resolved you have history of severe CAD s/p CABG and extensive stenting in 2012 and 2013 possible 4 stents per patient. Last cath April 2015 per pt unremarkable. stress test was negative of acute coronary disease, Cardiology consulted, appreciate recommendations, he recommend to to you home with follow up with Dr. Dc in next week. Please keep appointment You have IDDM: Continue insulin pump, watch for episodes of hypoglycemic - you need to follow up with your primary care physician in 1 week, - take medication as instructed, never overdose or any misuse, or take with alcohol, because misuse of medicine may cause organ damage or , call your primary care physician if have questions of medicaitons. - call your primary care physician OR go to local emergency room if has any fever/chill, chest pain, shortness of breathing, nausea/vomiting/abdominal pain , facial droop/slurry speech/local weakness, or if has any questions. - fall precaution - diet as instructed - you need to follow up with your subspecialist - you should understand that it is important to follow up the above instruction , and "not following the above instruction" may cause delayed or missed care of your medical conditions which may cause permanent organ damage and even . Current Hospital Diet Patient's current hospital diet: AHA Diet (Heart Healthy), Diabetes Type 2 Diet Discharge Diet Recommended Diet: Diabetes Type 1 Diet Procedures Procedures Performed: Stress test Pending Studies Studies pending at discharge: no Laboratory Results Hemoglobin A1c Test 11/17/16 07:01 Range/Units Estimated Average Glucose 146 mg/dl Hemoglobin A1c 6.7 H 4.5-5.6 % Lipid Panel Test 11/17/16 07:01 Range/Units Triglycerides Level 35 0-150 mg/dl Cholesterol Level 105 0-200 mg/dl HDL Cholesterol 52 mg/dl Cholesterol/HDL Ratio 2.0 LDL Cholesterol, Calculated 46 mg/dl Medical Emergencies . Who to Call and When: Medical Emergencies: If at any time you feel your situation is an emergency, please call 911 immediately. . Non-Emergent Contact Non-Emergency issues call your: Primary Care Provider, Machine Operator Replanter . . "Provider Documentation" section prepared by Baldomero Beard. VTE Core Measure Inpt VTE Proph given/why not?: Unfractionated heparin SQ
--- NOTE | 2017-02-05 15:21 | Discharge Summary ---
Discharge Summary Date of Service Feb 05, 2017. Discharge Summary Admission Date: Feb 04, 2017 at 14:32 Discharge Date: Feb 05, 2017 Discharge Disposition: Home Principal Diagnosis: chest pain and shortness of breathing, likely atypical, which is resolved Problems/Secondary Diagnoses: history of severe CAD s/p CABG and extensive stenting in 2012 and 2013 possible 4 stents per patient. Last cath April 2015 per pt unremarkable. stress test was negative of acute coronary disease, has rule out ACS Immunizations: Have You Had Influenza Vaccine: Yes History of Tetanus Vaccine?: Yes History of Pneumococcal: Yes History of Hepatitis B Vaccine: No Procedures: Exercise stress echo which was negative for ACS Consultations: Home Decorator Medication Reconciliation New Medications: Isosorbide Mononitrate (Isosorbide Mononitrate ER) 60 Mg Tab 120 MG PO QPM for 1 Day, TAB this is just med recs, pt has this med at home Ranolazine (Ranexa) 500 Mg Tabcr 500 MG PO BID for 1 Day this is just med recs, pt has this med at home Continued Medications: Amlodipine (Norvasc) 10 Mg Tab 10 MG PO DAILY, TAB Aspirin (Aspirin Tab-Chewable *) 81 Mg Chew 81 MG PO QAM, 0 Refills Atorvastatin (Lipitor) 80 Mg Tab 80 MG PO DAILY, TAB Carvedilol (Coreg) 6.25 Mg Tab 6.25 MG PO BID, TAB Insulin Aspart (novoLOG INSULIN PUMP ) 1 Ea Inj 1 EA N/A UD, EA Isosorbide Mononitrate (Imdur) 60 Mg Tab 90 MG PO QPM Losartan Potassium (Cozaar) 100 Mg Tab 100 MG PO DAILY, TAB Magnesium Oxide (Mag-Oxide) 400 Mg Tab 400 MG PO MWF Nitroglycerin (Nitrostat) 0.4 Mg Sub 0.4 MG SL PRN MAY TAKE EVERY 5 MINUTES TIMES THREE Pantoprazole (Protonix) 40 Mg Tab 40 MG PO QPM, #30 TAB Prasugrel Hcl (Effient) 10 Mg Tab 10 MG PO QAM, TAB Discharge Exam see today's note Review of Systems: Constitutional: + problem reported (see today's note) Physical Exam: General Appearance: + pertinent finding (see today's note) Hospital Course 61 y/o M In the hospital because of with intermittent central CP and SOB. Upon admission, per report , pain is central, triggered by exertion and relieved by rest. He works out on a treadmill for 30 min daily and has not been able to get through more than 15 min without developing SOB and CP. The symptoms started 2- 3 weeks prior and have been progressive. He is on Ranexa as he does have a degree of chronic CP however his symptoms are not currently at baseline. He denies N/V, diaphoresis, radiation of the pain or lightheadedness. Initial troponin and EKG are not consistent with acute ischemia. CP Substernal, possible secondary to unstable angina with history of severe CAD s/p CABG and extensive stenting in 2012 and 2013 possible 4 stents per patient. Last cath April 2015 per pt unremarkable. Cardiology consulted, appreciate recommendations Exercise stress done, which was negative, per surgical assistant patient can be discharged to home, IDDM: Continue insulin pump HTN: Continue Imdur, Cozaar, Carvedilol HPL: Continue Statin GERD: Continue Protonix daily GI Prophylaxis: Maalox PRN, IV Zofran PRN, Colace and/or Milk of Mag PRN chest pain and shortness of breathing, which is resolved I did medicine recs, he is on Imdur at home already will continue, has been on Ranexa, will cont, no new medication Instructions / Follow-Up you have chest pain and shortness of breathing, which is resolved you have history of severe CAD s/p CABG and extensive stenting in 2012 and 2013 possible 4 stents per patient. Last cath April 2015 per pt unremarkable. stress test was negative of acute coronary disease, Cardiology consulted, appreciate recommendations, he recommend to to you home with follow up with Dr. Dc in next week. Please keep appointment You have IDDM: Continue insulin pump, watch for episodes of hypoglycemic - you need to follow up with your primary care physician in 1 week, - take medication as instructed, never overdose or any misuse, or take with alcohol, because misuse of medicine may cause organ damage or , call your primary care physician if have questions of medicaitons. - call your primary care physician OR go to local emergency room if has any fever/chill, chest pain, shortness of breathing, nausea/vomiting/abdominal pain , facial droop/slurry speech/local weakness, or if has any questions. - fall precaution - diet as instructed - you need to follow up with your subspecialist - you should understand that it is important to follow up the above instruction , and "not following the above instruction" may cause delayed or missed care of your medical conditions which may cause permanent organ damage and even . Total Time Spent: Greater than 30 minutes This includes examination of the patient, discharge planning, medication reconciliation, and communication with other providers. Discharge Instructions Please refer to the electronic Patient Visit Report (Discharge Instructions) for additional information. Additional Copies To Alvaro Dc M.D.
[2017-02-05 15:37] VITALS: BP 123/62; PULSE 57; TEMP 36.8; O2SAT 96
--- NOTE | 2017-02-05 16:31 | Cardiology Follow-Up ---
Subjective Subjective Date of Service: Feb 05, 2017. Pt evaluation today including: conversation w/ patient, physical exam, chart review, lab review, review of studies, review of inpatient medication list Additional Details: Pt seen and examined, states that he feels well. Some slight chest discomfort at rest last PM, otherwise, feels well. Denies cp, sob, palpitations, lightheadedness or dizziness. Tele reviewed: sinus rhythm without arrhythmia or significant ectopy. Problem List Medical Problems: (1) Precordial chest pain Status: Acute (2) Unstable angina Status: Acute Review of Systems Constitutional: + see HPI Eyes: + see HPI ENT: + see HPI Respiratory: + see HPI Cardiac: + chest pain Breast: + see HPI Abdomen: + see HPI Musculoskeletal: + see HPI Male : + see HPI Neurologic: + see HPI Psychiatric: + see HPI Heme: + see HPI Endo: + see HPI Skin: + see HPI Objective Vital Signs Last Vital Signs Documentation Date Time Temp Pulse Resp B/P Pulse Ox O2 Delivery O2 Flow Rate FiO2 02/05/17 15:37 36.8 57 18 96 Room Air 02/05/17 15:03 123/62 Physical Exam: General Appearance: WD/WN, no apparent distress Eyes: bilateral eyes EOMI, bilateral eyes PERRL, bilateral eyes normal inspection ENT: normal ENT inspection, hearing grossly normal, pharynx normal Neck: supple, no adenopathy, thyroid normal, no JVD, no carotid bruits, trachea midline Respiratory/Chest: chest non-tender, lungs clear, normal breath sounds, no respiratory distress, no accessory muscle use Cardiovascular: regular rate, rhythm, no edema, no JVD, no murmur, + gallop/S4 Abdomen: normal bowel sounds, non tender, soft, no organomegaly Extremities: non-tender, normal inspection, no pedal edema, no calf tenderness Neurologic/Psychiatric: machine set up II-XII nml as tested, no motor/sensory deficits, alert, normal mood/affect, oriented x 3 Skin: normal color, warm/dry, no rash Lymphatic: no adenopathy Assessment and Plan 1. chest pain nonischemic EKG, cardiac enzymes and nuclear stress test all unremarkable offered to increase ranexa, patient declined will cont outpatient medications, no changes will have patient follow up in 1 week ER with symptoms Continued [facility] stay due to: other (pending cardiology) Discharge planning: home
== END 2017-02-05 16:25 | disposition home or self-care (01) | DRG 313 ==
LOC: ENRESERVTM → ENRESERVDT → C.EDB 12:53 → C.MED 14:27 → OBSVTOIN 02-04 14:32
PROVIDERS: ADMIT Internal Medicine; ATTEND Hospitalist
DX: R07.89 Other chest pain (principal); I25.110 Atherosclerotic heart disease of native coronary artery with unstable angina pectoris; R07.2 Precordial pain; K21.9 Gastro-esophageal reflux disease without esophagitis; E10.9 Type 1 diabetes mellitus without complications; E78.5 Hyperlipidemia, unspecified; R06.09 Other forms of dyspnea; Z95.1 Presence of aortocoronary bypass graft; I49.3 Ventricular premature depolarization; I10 Essential (primary) hypertension; Z95.5 Presence of coronary angioplasty implant and graft; Z79.4 Long term (current) use of insulin; Z79.82 Long term (current) use of aspirin; Z79.899 Other long term (current) drug therapy; Z79.02 Long term (current) use of antithrombotics/antiplatelets; Z96.41 Presence of insulin pump (external) (internal)

== ENCOUNTER → 2017-06-22 | Outpatient (CLI) | payer BC ==
[~2017-06-22] MED LIST changes: +IMDSR60 PO; -ISOS60TA PO; +RNXER500 PO
[2017-06-22 13:30] LABS: ALT/SGPT 27 U/L (12-78); AST/SGOT 18 U/L (15-37); BLOOD UREA NITROGEN 13 mg/dl (7-18); BUN/CREATININE RATIO 14.2 (10-20); CALCIUM 8.3 mg/dl (8.5-10.1); CARBON DIOXIDE 29 mmol/L (21-32); CHLORIDE 108 mmol/L (98-107); GLUCOSE 97 mg/dl (70-99); POTASSIUM 4.2 mmol/L (3.5-5.1); SODIUM 141 mmol/L (136-145)
[2017-06-22 13:32] LABS: ALB/GLOB RATIO 1.2 (0.9-2); ALKALINE PHOSPHATASE 51 U/L (45-117); CHOLESTEROL 97 mg/dl (0-200); CHOLESTEROL/HDL RATIO 1.9; HDL CHOLESTEROL 52 mg/dl; LDL CHOLESTEROL CALCULATED 38 mg/dl; TRIGLYCERIDES 37 mg/dl (0-150); VERY LOW DENSITY LIPOPROT CALC 7 mg/dl
[2017-06-22 13:57] LABS: RATIO 20.8 mcg/mg (0-30.0)
[2017-06-22 14:46] LABS: ESTIMATED AVERAGE GLUCOSE 151 mg/dl; HA1C FLAG Normal (Normal)
== END | disposition home or self-care (01) ==
LOC: C.LABMFLN 06:50
PROVIDERS: ATTEND Family Medicine
DX: E78.00 Pure hypercholesterolemia, unspecified (principal); I25.10 Atherosclerotic heart disease of native coronary artery without angina pectoris; E11.59 Type 2 diabetes mellitus with other circulatory complications; I10 Essential (primary) hypertension

== ENCOUNTER → 2017-11-02 | Outpatient (CLI) | payer BC ==
[~2017-11-02] MED LIST changes: +PANT1TAB3 PO; -PANT1TAB48 PO
[2017-11-02 13:06] LABS: ESTIMATED AVERAGE GLUCOSE 146 mg/dl; HA1C FLAG Normal (Normal)
[2017-11-02 13:12] LABS: ALT/SGPT 27 U/L (12-78); BLOOD UREA NITROGEN 19 mg/dl (7-18); BUN/CREATININE RATIO 20.9 (10-20); CALCIUM 8.4 mg/dl (8.5-10.1); CARBON DIOXIDE 29 mmol/L (21-32); CHLORIDE 108 mmol/L (98-107); CHOLESTEROL 109 mg/dl (0-200); CREATININE 0.89 mg/dl (0.60-1.40); GLUCOSE 132 mg/dl (70-99); POTASSIUM 4.5 mmol/L (3.5-5.1); SODIUM 140 mmol/L (136-145)
[2017-11-02 13:17] LABS: ALB/GLOB RATIO 1.1 (0.9-2); ALKALINE PHOSPHATASE 49 U/L (45-117); AST/SGOT 21 U/L (15-37); CHOLESTEROL/HDL RATIO 2.1; HDL CHOLESTEROL 52 mg/dl; LDL CHOLESTEROL CALCULATED 49 mg/dl; TRIGLYCERIDES 40 mg/dl (0-150); VERY LOW DENSITY LIPOPROT CALC 8 mg/dl
== END | disposition home or self-care (01) ==
LOC: C.LABMFLN 06:53
PROVIDERS: ATTEND Family Medicine
DX: E78.00 Pure hypercholesterolemia, unspecified (principal); I25.10 Atherosclerotic heart disease of native coronary artery without angina pectoris; I10 Essential (primary) hypertension; Z12.5 Encounter for screening for malignant neoplasm of prostate; F43.20 Adjustment disorder, unspecified; E11.59 Type 2 diabetes mellitus with other circulatory complications

== ENCOUNTER → 2018-04-03 | Outpatient (CLI) | payer BC ==
[2018-04-03 17:54] LABS: BASO % 0.8 %; BASO ABS # 0.07 K/uL (0-0.2); EOS % 4.9 %; EOS ABS # 0.41 K/uL (0-0.5); HEMATOCRIT 37.8 % (42-52); HEMOGLOBIN 12.9 g/dL (14.0-18.0); IG# 0.01 K/uL (0.00-0.02); LYMPH % 23.5 %; LYMPH ABS # 1.97 K/uL (1.2-3.4); MEAN CELL VOLUME 89.4 fL (80-100); MEAN CORPUSCULAR HEMOGLOBIN 30.5 pg (25-34); MEAN CORPUSCULAR HGB CONC 34.1 g/dl (32-36); MEAN PLATELET VOLUME 9.3 fL (7.4-10.4); MONO % 10.4 %; MONO ABS # 0.87 K/uL (0.11-0.59); NEUT % 60.3 %; NEUT ABS # 5.07 K/uL (1.4-6.5); PLATELET COUNT 241 K/uL (130-400); RED CELL DISTRIBUTION WIDTH CV 13.3 % (11.5-14.5); RED CELL DISTRIBUTION WIDTH SD 43.4 fL (36.4-46.3)
[2018-04-03 18:11] LABS: ALBUMIN 3.8 gm/dl (3.4-5.0); ALKALINE PHOSPHATASE 58 U/L (45-117); ALT/SGPT 22 U/L (12-78); AST/SGOT 18 U/L (15-37); BLOOD UREA NITROGEN 19 mg/dl (7-18); CALCIUM 8.2 mg/dl (8.5-10.1); CARBON DIOXIDE 27 mmol/L (21-32); CREATININE 0.99 mg/dl (0.60-1.40); GLUCOSE 198 mg/dl (70-99); POTASSIUM 4.2 mmol/L (3.5-5.1); SODIUM 137 mmol/L (136-145)
[2018-04-03 18:12] LABS: CHOLESTEROL 113 mg/dl (0-200); LDL CHOLESTEROL CALCULATED 48 mg/dl; TOTAL PROTEIN 7.3 gm/dl (6.4-8.2)
[2018-04-04 06:34] LABS: HEMOGLOBIN A1C 6.8 % (4.5-5.6)
== END | disposition home or self-care (01) ==
LOC: C.LABMFLN 13:00
PROVIDERS: ATTEND Family Medicine
DX: E78.00 Pure hypercholesterolemia, unspecified (principal); I25.10 Atherosclerotic heart disease of native coronary artery without angina pectoris; I10 Essential (primary) hypertension; E11.59 Type 2 diabetes mellitus with other circulatory complications; Z79.4 Long term (current) use of insulin

== ENCOUNTER 2019-01-23 13:51 | Inpatient (IN) ==
[2019-01-23] MEDS ORDERED: DEXTROSE 50% 50 ML SYRINGE IV PRN (15:23)
[2019-01-23] MEDS ORDERED: GLUCOSE 40% GEL 15 GM TUBE PO PRN (15:23)
[2019-01-23] MEDS ORDERED: GLUCAGON FOR INJ 1 MG VIAL SQ PRN (15:23)
[2019-01-23] MEDS ORDERED: ONDANSETRON INJ 2 MG/ML 2 ML VIAL IV PRN (15:23)
[2019-01-23] MEDS ORDERED: CARBOHYDRATES FOR HYPOGLYCEMIA PO PRN (15:23)
[2019-01-23] MEDS ORDERED: ACETAMINOPHEN 325 MG TAB PO PRN (15:23)
[2019-01-23] MEDS ORDERED: GLUCOSE 10 TABS/TUBE PO PRN (15:23)
--- NOTE | 2019-01-23 15:53 | History & Physical Report ---
Date of Service January 23, 2019 Assessment & Plan (1) Heart disease: (2) CAD (coronary artery disease): - Multivessel CAD s/p CABG x 3 and multiple PCI and rotational atherectomy. - Pt follows with Dr. Hensley as an outpatient and was recently seen in the office on 01/21/19. Pt had been having sx of unstable angina x 10 days and was recommended to go to the ER at the outpt appt on 01/21. Pt was hospitalized at OSH ([facility]) from 01/21-01/23 and transferred here for possible lateral ischemia on exercise stress testing conducted earlier today. - CABG x3 [facility] 03/23/2011: HINTON to LAD and SVG sequential to 2 separate OM vessels. Also has hx of stent thrombosis. - Cardiac caths have been done on 09/19/13, 11/01/13, 11/25/13, 01/02/14, 05/01/14, 05/11/14, 06/08/14, 05/14/15, 11/16/17, 03/22/18, 08/19/18, and most recent was 10/25/18 where patent hinton to LAD. Patent circumflex and RCA which was done for abnormal stress test. - Previous cardiac caths have not been able to be completed via the left radial artery (1 successful attempt in the past but subsequent attempts failed) - Continue asa 81 mg, Effient 10 mg daily, carvedilol 1.56 mg BID, Imdur 120 mg QPM, losartan 100 mg daily, atorvastatin 80 mg HS, amlodipine 10 mg daily, ranolazine 500 mg BID. - Exercise stress test completed at [facility] prior to arrival to the floor: Raine walk for 04:00 min achieving a work level of max. METS: 2:1. Resting HR of 69 bpm mckenzie to 94 BPM, This represents 60% max HR. BP mckenzie to max of 195/63. - Cardiology consult - NPO in case of needs for procedure. - Nitro tabs prn - EKG with chest pain prn (3) Benign essential HTN: - Continue medications as above. (4) DM I (diabetes mellitus, type I): - Continue home insulin pump with accuchecks ACHS. - HH/DM diet, keep NPO for now in case of needs for procedure. (5) Long-term insulin use: - Insulin pump as above. (6) HLD (hyperlipidemia): - Cont statin therapy (7) Osteoarthritis: - Stable (8) DVT prophylaxis: - Continue effient 10 mg qam, asa 8 1mg daily, teds, scds. GI ppx with pantoprazole. Disposition: Admit to tele, possible cardiac cath today vs tomorrow, will await Cardiology recommendations, keep NPO for now. History of Present Illness Chief Complaint: Transferred from [facility] for cardiac workup/ possible lateral ischemia with needs for cath. Primary Care Provider: Josue Romeo MD This is a 63 yo M with PMhx of significant CAD with CABG x 3, multiple PCI (12 times since 2010), 6 stents, 5 of which are in the LAD, and 1 to the RCA, HTN, HLD, DM type I with insulin pump, osteoarthritis, elevated PSA. Pt follows as an outaptient with Dr. Hensley, cardiology and was seen in office in [place] on 01/21/19 due to having increased chest heaviness and shortness of breath with minimal exertion x 10 days prior to that office visit. He attempted transfer by EMS to [facility] at that time, however no EMS was available so was admitted to [facility] in [place] from 01/21-01/23. There he underwent serial cardiac biomarker testing which was negative, and an exercise stress test on 01/23 where he reached 60% max of the age-predicted heart rate. Pt notes that it took him and hour and a half to recover from this test because it "wiped me out". Pt has not required any nitro tables prn in the past 2 days since being admitted however admits to having increase chest heaviness with walking about the [place]. Pt has been transferred for possible cardiac cath due to lateral ischemia seen with stress testing. Allergies Allergy/AdvReac Type Severity Reaction Status Date / Time clopidogrel Allergy Unknown HIVES Verified 02/03/17 13:57 terbinafine Allergy Unknown HIVES Verified 02/03/17 13:57 Home Medications Home Medications Medication Instructions Recorded Confirmed Type Aspirin (Aspirin Tab-Chewable *) 81 mg PO QAM #0 02/06/12 01/23/19 History NITROGLYCERIN (NITROSTAT) 0.4 mg SUBLINGUAL PRN #0 02/06/12 01/23/19 History ATORVASTATIN (LIPITOR) 80 mg PO HS #0 tab 05/08/14 01/23/19 History Amlodipine (Norvasc) 10 mg PO DAILY #0 tab 05/08/14 01/23/19 History CARVEDILOL (COREG) 1.56 mg PO BID #0 tab 05/08/14 01/23/19 History INSULIN ASPART (novoLOG INSULIN 1 dose NOT APPLICABLE UD #0 dose 05/08/14 01/23/19 History PUMP ) LOSARTAN POTASSIUM (COZAAR) 100 mg PO DAILY #0 tab 05/08/14 01/23/19 History MAGNESIUM OXIDE (MAG-OXIDE) 400 mg PO MWF #0 05/08/14 01/23/19 History PANTOPRAZOLE (PROTONIX) 40 mg PO QAM #30 tab 05/08/14 01/23/19 History PRASUGREL HCL (EFFIENT) 10 mg PO QAM #0 tab 05/08/14 01/23/19 History Isosorbide Mononitrate (Isosorbide 120 mg PO QPM 1 Days #0 tab 02/05/17 01/23/19 Rx Mononitrate ER) Ranolazine (Ranexa) 500 mg PO BID 1 Days #0 02/05/17 01/23/19 Rx terazosin 1 mg PO HS 01/23/19 01/23/19 History Past Med/Surg History Medical History Elevated PSA Osteoarthritis HLD (hyperlipidemia) Long-term insulin use DM I (diabetes mellitus, type I) Benign essential HTN CAD (coronary artery disease) Crescendo angina (Acute 05/08/14) Surgical History Stented coronary artery (Resolved) H/O coronary artery bypass surgery H/O sinus surgery History of coronary artery stent placement Hx of cholecystectomy Family History Mother CVA (cerebral vascular accident) Thyroid disease Heart attack Father Heart attack Brother CAD (coronary artery disease) CABG and PCI in mid 50s Social History Preferred Language: British Communication Ability: Effective Logistics Coordinator Required: No Beliefs That Will Affect Care: None marital status: Current Living Situation: Spouse current occupational status: retired Other Information That Helps Us Care for You: No Feels Safe at Home: Yes Safety Concerns: Feels Safe At This Time Smoking Status: Never smoker Hx Alcohol Use: No Hx Substance Use: No Review of Systems Constitutional: no fever, no chills, no sweats and no fatigue Eyes: no diplopia and no worsening vision Ear, Nose, Mouth, Throat: no dizziness, no nasal discharge, no facial pain and no sore throat Respiratory: no cough, no dyspnea and no wheezing Cardiovascular: as per Subjective / HPI; no chest pain, no palpitations, no lightheadedness and no syncope Gastrointestinal: no nausea, no vomiting and no constipation no diarrhea Genitourinary (Male): no dysuria, no urinary frequency, no urinary hesitancy and no hematuria Musculoskeletal: no back pain, no joint pain, no swelling and no muscle weakness Integumentary: no rash, no lesions and no wounds Neurologic: no gait abnormality, no falls, no numbness, no dizziness and no syncope Psychiatric: no depression and no anxiety Endocrine: no fatigue Physical Exam Physical Exam: General: awake, alert, no apparent distress Head: Normocephalic, +lesion over posterior crown which is scabbed over, no surrounding erythema. ENT: PERRL, EOMI, no pharyngeal exudate, mucous membranes moist Chest: Clear to auscultation, on room air, no adventitious breath sounds Cardiac: Regular rate and rhythm, + IBETH, no JVD, normal peripheral pulses, good capillary refill Abdominal: NABS x 4 quadrants, soft, nontender to palpation, no rebound, guarding or tenderness Extremities: Normal inspection, no peripheral edema or erythema, calfs nontender to palpation Psych: Normal mood and affect Neuro: AAO x 3, strength intact bilaterally and related 5/5, no motor deficits, speech is clear, no peripheral sensory deficits Results & Data ECG Additional Comments: EKG reviewed from OSH records from 01/23/19 at 07:10:57 Vent rate = 64 GA interval 184 ms QRS duration 88 QT/QTc 386/398 PRT 6 -[address] wave inversions of signs of acute ischemia. Supervising Physician Co-Signing Physician Notes Patient seen and examined, chart reviewed, case discussed with BRIDGER Hammond and I agree with her assessment and plan as documented above. Briefly, patient is a 63yo male with h/o Type I DM with insulin pump in [facility], HTN, HLP, CAD s/p CABG x 3 v in 2010 with multiple subsequent stents presenting with two weeks of angina, progressively increasing in intensity. He reports mild, infrequent CP at rest. On physical exam he is afebrile, hemodynamically stable, resting comfortably Skin: no rash HEENT: MMM, neck supple, no JVD Heart: +S1/S2, regular, no m/r/g Lungs: CTA, no rales/rhonchi/wheezes Abd: +BS, soft, NT/ND, insulin pump in place Ext: warm, well perfused, no clubbing/cyanosis or edema Labs and images reviewed. Assessment/Plan: Continue home medications. Plan for cardiac catheterization in morning. Remainder of plan as above.
[2019-01-23] MEDS ORDERED: NITROGLYCERIN SL 0.4 MG/TAB TAB SL PRN (17:44)
--- NOTE | 2019-01-23 18:36 | Cardiology Consultation ---
Date of Consultation January 23, 2019 Assessment & Plan (1) CAD (coronary artery disease): He has long history of severe coronary artery disease having undergone 3 vessel bypass in 2010. This involved a HINTON to the LAD and a vein graft to 2 obtuse marginal branches. He is known to have occlusion of this vein graft. On the last catheterization the HINTON to LAD was patent. He has 100% occlusion of the LAD. He has had percutaneous intervention on both the left circumflex and right coronary artery. Both of these vessels required Rotablator. He has been maintained on good medical regimen for coronary disease to include high-dose atorvastatin, carvedilol, losartan, aspirin, ranolazine, prasugrel and isosorbide. Present on Admission?: Yes (2) Crescendo angina: Patient has had worsening of presumed angina. While he does have an element of baseline chest discomfort with activity this has become more notable recently. Does not appear to have suffered from an acute coronary syndrome in the recent past given the absence of elevation in biomarkers. I do not feel there is an urgent need for anticoagulation. Our plan is for coronary angiography in the morning. Patient is well-versed on this procedure but we did talk about the risks benefits and alternatives tonight. Present on Admission?: Yes History of Present Illness Reason for Consultation: Chest pain, angina Requesting Physician: Jeronimo Attending Physician: Renetta Decker, DO History of Present Illness Patient is a 63-year-old gentleman with an extensive history of cardiovascular disease including surgical revascularization in multiple percutaneous interventions. Patient was seen on an outpatient basis on 15/05 at which time he describe symptoms consistent with crescendo angina. Based on the nature of his symptoms he was advised to be hospitalized. He was transported to [facility] where he underwent observation and eventual cardiac perfusion imaging. Based on the nature of his symptoms and abnormal perfusion study he was subsequent transferred to [facility] for planned angiography. The patient states that at baseline he limits his activity. He has a long history of exertional chest discomfort. As such she avoids cold weather and significant exertion. He tends to pace himself and generally does not have symptoms chest pain. He can at ascend 1 flight of stairs and perform normal household duties without symptoms. Two flights of stairs or more significant activity general will produce some symptoms. Recently he has been having symptoms with even less activity. He states that he getting out of bed and performing minor actions will produce chest discomfort. He has even had some episodes at rest recently. He will use nitroglycerin with good effect. At [facility] the patient did undergo perfusion imaging which also involved an element of walking on a treadmill for 4 minutes. Patient states that he did have some mild symptoms of chest discomfort with the ambulation. Subsequent to the procedure he felt entirely �wiped out�. However, he has not had chest pain since this morning. Allergies Allergy/AdvReac Type Severity Reaction Status Date / Time clopidogrel Allergy Unknown HIVES Verified 02/03/17 13:57 terbinafine Allergy Unknown HIVES Verified 02/03/17 13:57 Home Medications Home Medications Medication Instructions Recorded Confirmed Type Aspirin (Aspirin Tab-Chewable *) 81 mg PO QAM #0 02/06/12 01/23/19 History NITROGLYCERIN (NITROSTAT) 0.4 mg SUBLINGUAL PRN #0 02/06/12 01/23/19 History ATORVASTATIN (LIPITOR) 80 mg PO HS #0 tab 05/08/14 01/23/19 History Amlodipine (Norvasc) 10 mg PO DAILY #0 tab 05/08/14 01/23/19 History CARVEDILOL (COREG) 1.56 mg PO BID #0 tab 05/08/14 01/23/19 History INSULIN ASPART (novoLOG INSULIN 1 dose NOT APPLICABLE UD #0 dose 05/08/14 01/23/19 History PUMP ) LOSARTAN POTASSIUM (COZAAR) 100 mg PO DAILY #0 tab 05/08/14 01/23/19 History MAGNESIUM OXIDE (MAG-OXIDE) 400 mg PO MWF #0 05/08/14 01/23/19 History PANTOPRAZOLE (PROTONIX) 40 mg PO QAM #30 tab 05/08/14 01/23/19 History PRASUGREL HCL (EFFIENT) 10 mg PO QAM #0 tab 05/08/14 01/23/19 History Isosorbide Mononitrate (Isosorbide 120 mg PO QPM 1 Days #0 tab 02/05/17 01/23/19 Rx Mononitrate ER) Ranolazine (Ranexa) 500 mg PO BID 1 Days #0 02/05/17 01/23/19 Rx terazosin 1 mg PO HS 01/23/19 01/23/19 History Patient History Medical History Elevated PSA Osteoarthritis HLD (hyperlipidemia) Long-term insulin use DM I (diabetes mellitus, type I) Benign essential HTN CAD (coronary artery disease) Crescendo angina (Acute 05/08/14) Surgical History Stented coronary artery (Resolved) H/O coronary artery bypass surgery H/O sinus surgery History of coronary artery stent placement Hx of cholecystectomy Family History Mother CVA (cerebral vascular accident) Thyroid disease Heart attack Father Heart attack Brother CAD (coronary artery disease) CABG and PCI in mid 50s Social History Preferred Language: Fijian Communication Ability: Effective Pattern Developer Required: No Beliefs That Will Affect Care: None marital status: Current Living Situation: Spouse current occupational status: retired Other Information That Helps Us Care for You: No Feels Safe at Home: Yes Safety Concerns: Feels Safe At This Time Smoking Status: Never smoker Hx Alcohol Use: No Hx Substance Use: No Review of Systems Complete. Pertinent positives known history present illness. He has not had any other constitutional symptoms recently such as fevers or chills. He did mention a nonproductive cough which appears to have started this evening. He also feels that he may have some minor nasal drainage. No lower extremity edema reported. Physical Exam Vital Signs (Past 24 Hours): Last Vital Signs Temp 36.6 C 01/23/19 16:26 Pulse 66 01/23/19 16:26 Resp 16 01/23/19 16:26 BP 144/68 H 01/23/19 16:26 Pulse Ox 95 01/23/19 16:26 Physical Exam: The patient is alert and oriented. Mood and affect appeared normal. He answered all questions appropriately. HEENT: Pupils are equal and reactive to light and accommodation. Extraocular movements are intact. The sclerae are anicteric. Neuro: Cranial nerves intact Neck: Patient's neck is supple. He has palpable carotid pulses bilaterally without bruits on auscultation. There is no evidence of jugular venous distention. The thyroid is not enlarged. Lungs: Clear to auscultation bilaterally. He has good air movement without use of accessory muscles. No rales wheezes or rhonchi. Cardiac: Heart demonstrates a regular rate and rhythm. Normal S1 and S2. No murmurs on examination. Pulses: The patient has palpable radial pulses bilaterally. The right is more forceful than the left. He has a palpable right femoral artery without bruit. Extremities: There was no evidence of hypoperfusion. There is no cyanosis or clubbing. There is no edema. Skin: I did not appreciate any rashes on examination today. Results & Data Laboratory Results Abnormal Lab Results 01/23/19 01/23/19 15:41 15:46 POC Glucose 104 H Troponin I < 0.015 Diagnostic Findings I reviewed his echocardiogram from [facility] dated 01/15/2018. Normal left ventricular systolic function. Stage II diastolic dysfunction. Mild right ventricular dilation and reduced function. Moderate left atrial dilation. Normal estimated pulmonary pressures. A Lexiscan perfusion study with 4 minutes of walking on a treadmill was performed today. I reviewed the source images of his EKGs which did not reveal any evidence of ischemia. Perfusion study report was not available but reportedly demonstrated ischemia in the lateral region.
[2019-01-23] MEDS ORDERED: guaiFENesin SUGAR FREE 200 MG/10 ML UDC PO PRN (20:25)
[2019-01-23] MEDS ORDERED: RANOLAZINE 500 MG ER TAB PO SCH (21:00)
[2019-01-23] MEDS: NovoLOG INSULIN PUMP SCH (21:00)
[2019-01-23] MEDS ORDERED: ATORVASTATIN 40 MG TAB PO SCH (21:00)
[2019-01-23] MEDS ORDERED: CARVEDILOL 3.125 MG TAB PO SCH (21:00)
[2019-01-23] MEDS ORDERED: ISOSORBIDE MONO EXTENDED REL 60 MG TABCR PO SCH (21:00)
[2019-01-23] MEDS ORDERED: TERAZOSIN HCL 1 MG CAP PO SCH (21:00)
[2019-01-23] MEDS: CARVEDILOL 3.125 MG TAB PO SCH (21:18)
[2019-01-24 07:04] LABS: Hemoglobin 12.9 g/dL (14.0-18.0); Mean Corpuscular Hgb Conc 33.9 g/dL (32-36); Mean Corpuscular Volume 90.3 fL (80-100); Mean Platelet Volume 9.7 fL (7.4-10.4); Platelet Count 202 K/uL (130-400); RDW Coefficient of Variation 13.2 % (11.5-14.5); RDW Standard Deviation 43.3 fL (36.4-46.3); Red Blood Count 4.21 M/uL (4.7-6.1); White Blood Count 8.65 K/uL (4.8-10.8)
[2019-01-24 07:30] LABS: Albumin Level 3.2 gm/dl (3.4-5.0); BUN Creatinine Ratio 17.1 (10-20); Calcium 8.3 mg/dl (8.5-10.1); Creatinine Clr Calc Pharmacy 67.2 ml/min; Est GFR (Non-African American) 77.7; Potassium 4.2 mmol/L (3.5-5.1)
[2019-01-24 07:33] LABS: Albumin Globulin Ratio 0.9 (0.9-2); Bilirubin,Total 0.6 mg/dl (0.2-1); Globulin 3.6 gm/dl (2.5-4.0); Total Protein 6.8 gm/dl (6.4-8.2)
[2019-01-24] MEDS ORDERED: LIDOCAINE HCL 1% 20 ML VIAL ONE (07:38)
[2019-01-24] MEDS ORDERED: fentaNYL citrate 100 MCG/2 ML VIAL ONE (08:14)
[2019-01-24] MEDS ORDERED: MIDAZOLAM HCL 1 MG/ML 2ML VIAL ONE (08:14)
[2019-01-24] MEDS ORDERED: ASPIRIN 81 MG CHEW ONE (08:14)
--- NOTE | 2019-01-24 08:19 | Pre Anesthesia Assessment ---
Date of Service January 24, 2019 Pre Sedation Assessment Vital Signs Temp Pulse Pulse Resp BP BP Pulse Ox 01/24/19 03:33 37.3 C 75 16 123/64 93 01/24/19 01:10 76 01/24/19 00:16 37.1 C 75 20 121/57 L 93 01/23/19 18:54 37.2 C 73 16 126/68 93 01/23/19 16:26 36.6 C 66 16 144/68 H 95 Cardiovascular + regular rate Respiratory normal respiratory effort, lungs clear to auscultation Pre-Sedation Airway Assessment Smoking Status: Never smoker Mallampati Class: III ASA: ASA3 NPO Status Date of Last Intake of Fluids: 01/23/19 Time of Last Intake of Fluids: 19:00 Date of Last Intake of Solid Food: 01/23/19 Time of Last Intake of Solid Foods: 19:00 Procedure Planning Contraindications for Sedation: none Current Medications Reviewed: Yes Notes The planned sedation has been discussed with the patient. Informed Consent was obtained. I have identified the patient, determined the appropriateness of sedation and have assessed the patient immediately prior to the procedure. All medicine(s) and interventions are by my order.
[2019-01-24] MEDS ORDERED: PANTOprazole 40 MG TAB PO SCH (09:00)
[2019-01-24] MEDS ORDERED: PRASugrel TAB 10 MG TAB PO SCH (09:00)
[2019-01-24] MEDS ORDERED: LOSARTAN POTASSIUM 50 MG TAB PO SCH (09:00)
[2019-01-24] MEDS ORDERED: MAGNESIUM OXIDE 400 MG TAB PO SCH (09:00)
[2019-01-24] MEDS ORDERED: AMLODIPINE BESYLATE 5 MG TAB PO SCH (09:00)
[2019-01-24] MEDS ORDERED: ASPIRIN 81 MG ECTAB PO SCH (09:00)
--- NOTE | 2019-01-24 09:23 | Post Operative Brief Note ---
Cardiology Brief Post Op Date of Surgery January 24, 2019 Pre & Post Diagnosis Operation Date: 01/24/19 06:45 <No data on this case meets the specified criteria> Coronary angiography: Patent HINTON. Patent circumflex and RCA stents. Procedure 1. Coronary angiography of [place] coronary arteries. 2. Angiography of bypass graft 3. Left heart cath Corporate Communications Intern Ramakrishna Hensley MD Reinsurance Analyst Kenroy Baum Estimated Blood Loss 25 Findings See Below (See full report for details. This is prelim, brief note.)
[2019-01-24] MEDS ORDERED: SODIUM CHLORIDE 0.9% 500 ML IV PRN (09:24)
[2019-01-24] MEDS ORDERED: ATROPINE SULFATE 0.1 MG/ML 10ML SYR IV PRN (09:24)
[2019-01-24] MEDS ORDERED: SODIUM CHLORIDE 0.9% 1000ML 1,000 ML IV SCH (09:30)
--- NOTE | 2019-01-24 09:34 | Cardiac Catheterization ---
Cardiac Cath Procedure Full Procedure Date January 24, 2019 Pre-Procedure Diagnosis Pre-Procedure Diagnosis: Angina and Positive Stress Test AUC Score AUC Score: 9 Post-Procedure Diagnosis Post-Procedure Diagnosis: Severe CAD and Normal Intracardiac Pressures Procedure(s) Performed Procedure(s) Performed: Coronary Angiography, Left Heart Cath, Ultrasound Guided Vascular Access and Bypass Graft Angiography Film Projector Operator Ramakrishna Hensley MD Executive Director Sheltered Workshop(s) Kenroy Baum Estimated Blood Loss Estimated Blood Loss: < 25 ml Medication(s) Medication(s): Fentanyl, Lidocaine 1% and Versed Summary of Findings Coronary angiography: 1. Left main coronary: Left main stent patent. 2. Left anterior descending: Ostial LAD 100%. LAD fills via HINTON. Medium caliber D1, medium caliber D2, and small caliber D3 without obvious severe CAD noted. Diagonal vessels fill via retrograde flow from HINTON to LAD. Faint ouyq-gq-kepv collaterals. 3. Circumflex: Ostial/proximal circumflex stent is patent. Distal, AV groove circumflex is very small in caliber. Large OM1 with mid 30% stenosis at bifurcation site of lateral branch. Dyzo-ns-btas collaterals. 4. Right coronary artery: The RCA is large and dominant. Proximal RCA 30%. Proximal RCA stent with 30% in stent restenoses. Mid RCA 20%. RCA gives rise to PDA and posterior lateral branches. No significant CAD within the PDA or posterior lateral branches. RV branch ostial 70-80% with DEANA 3 flow. There are right to left collaterals. Coronary Artery bypass graft angiography: 1. HINTON to LAD is patent. HINTON is tortuous. 2. SVG to OM is known to be occluded. Left heart catheterization: 1. Left ventriculography was not performed. 2. No aortic stenosis. Peak to peak gradient across the aortic valve was 0. 3. Normal LVEDP; 7mmHg. Procedural details: 1. Coronary angiography was performed via the right femoral artery with 5 Sinhala diagnostic catheters (JL 4 and JR4). Ultrasound guidance: 1. Ultrasound was used to visualize right femoral artery to assist in cannulation of the right femoral artery. Sedation start time: 8:27 a.m. Sedation end time: 9:14 a.m. Impression: 1. Patent HINTON to LAD. 2. Patent LMCA/circumflex and RCA stents. 3. Occluded ostial LAD with (previously reported). 4. Small vessel CAD. 5. Gdkz-jr-mwie and hsdtl-eg-gezj collaterals. 6. No aortic stenosis. 7. Normal LVEDP. Plan: 1. Optimize medical therapy. Hemodynamics Rest Ao:: 127/42 Final Ao: 128/53 LV: 133/0/7 Recommendations Recommendations: Medical Therapy and/or Counseling Specimens Specimens: None Radiation Exposure (mGy) 1653 mGY. Fluoro time 10 min. Contrast (mls) 35 ml Optiray Procedural Complication(s) None Disposition Utility Person Holding/Recovery ACC Data: Utility Person Cardiac Status Clinical evaluation leading to the procedure CAD Presenation: Positive Stress Test and Unstable angina Anginal Classification: CCS IV Heart Failure: No Cardiogenic Shock within 24 Hours: No Cardiac Arrest within 24 Hours: No Imaging Studies Past 6 Months: Yes Stress Studies Past 6 Months: Yes Standard Exercise Test: No Stress Echocardiogram: No Stress Testing w/SPECT MPI: Yes - Positive and Risk/Extent of Ischemia (Moderate risk) Cardiac CTA: No Coronary Anatomy Dominant: Right Left Main (% Stenosis): Normal (Patent stent) LAD (% Stenosis): Ostial (100%) D1 (% Stenosis): Normal D2 (% Stenosis): Normal D3 (% Stenosis): Normal Circumflex (% Stenosis): Proximal (Patent stent) OM1 (% Stenosis): Mid (30%) RCA (% Stenosis): Proximal (30% followed by 30% instent stenosis) and Mid (20%) R PDA (% Stenosis): Normal R PL1 (% Stenosis): Normal AM (% Stenosis): Ostial (70-80%) Grafts - LAD (%): Normal (Patent HINTON to LAD) Grafts - Circumflex (%): Ostial (100% previously reported) Left Ventricular Angiography EF (%): n/a Diagnostic Physicians Name: Ramakrishna Hensley MD Status: Elective Closure Device Percutaneous Entry Location: Femoral Closure Device: None-Manual Hold Recommendations: Medical Therapy and/or Counseling
[2019-01-24] MEDS: NovoLOG INSULIN PUMP SCH ×2 (10:41→13:00)
[2019-01-24] MEDS ORDERED: METOPROLOL TARTRATE 25 MG TAB PO SCH (11:00)
[2019-01-24] MEDS: CARVEDILOL 3.125 MG TAB PO SCH (11:04)
--- NOTE | 2019-01-24 13:10 | Cardiology Progress Note ---
Date of Service January 24, 2019 Assessment & Plan (1) CAD (coronary artery disease): Presented with unstable angina and had abnormal myocardial perfusion study done at [facility], suggesting circumflex territory ischemia. Medical therapy was recommended following coronary angiography earlier today. He did not tolerate higher doses of carvedilol. He has not tried metoprolol in the past, although family members have not tolerated it. Recommend metoprolol tartrate 25 mg twice daily in place of carvedilol. We discussed the fact that beta-gonsalo therapy would be an important medical therapy for his ischemic heart disease. Increase isosorbide mononitrate to 240 mg daily. Continue high- intensity statin therapy. Continue aspirin 81 mg daily. Continue prasugrel. 911 for angina that does not resolve within 5 minutes of nitroglycerin. Close follow-up in the cardiology office recommended. (2) Hx of CABG: [place] to LAD patent. SVG to OM1 previously documented as occluded. (3) Crescendo angina: He presented with unstable angina. Medical therapy recommended as noted above. If he continues to have angina, beta-gonsalo can be further titrated as tolerated. Ranexa can also be initiated. (4) Benign essential HTN: Blood pressure has been normotensive to mildly hypertensive. Beta-gonsalo initiated as above. Nitrate therapy increased as well. Can further titrate medications as appropriate. (5) HLD (hyperlipidemia): Continue high-intensity statin therapy. Disposition: Plan of care was discussed via telephone with Dr. Beard of the primary hospitalist service. Follow-up in 1-2 weeks with Cardiology in the outpatient setting. Cardiology office was made aware and will schedule this appointment for him. Subjective He has not had any further chest pain since arriving at [facility]. His last episode of chest discomfort was during the myocardial perfusion study while walking slowly on a treadmill. He underwent cardiac catheterization earlier today. His HINTON to LAD was patent asWere the circumflex and RCA stents. He did not require intervention. Medical therapy was recommended for his ischemic heart disease. He does have several collaterals from the right and left but these are small vessels. He denies syncope, near-syncope, palpitations, edema, or bleeding. Review of systems: As above. Physical Exam Vital Signs (Past 24 Hours): Last Vital Signs Temp 36.9 C 01/24/19 09:38 Pulse 66 01/24/19 12:38 Resp 18 01/24/19 10:38 BP 124/52 L 01/24/19 12:38 Pulse Ox 93 01/24/19 09:38 Physical Exam: Gen.: No acute distress. Alert and oriented. HEENT: Anicteric sclera. Neck: No JVD. Cardiac: Regular. Normal S1-S2. No murmurs, rubs, or gallops. Pulmonary: Clear to auscultation bilaterally without wheezes, rales, or rhonchi. Abdomen: Soft, nontender, nondistended, with normoactive bowel sounds. No bruits noted. Extremities: No edema or cyanosis. 2+ femoral pulse, without bruit. Psychiatric: Affect appears appropriate. Results & Data Laboratory Results Laboratory Results - last 24 hr 01/23/19 01/23/19 01/23/19 15:41 15:46 20:21 WBC RBC Hgb Hct MCV MCH MCHC RDW Std Deviation RDW Coeff of Shdaia Plt Count MPV Sodium Potassium Chloride Carbon Dioxide Anion Gap BUN Creatinine Est Cr Clr Drug Dosing Est GFR ( Amer) Est GFR (Non-Af Amer) BUN/Creatinine Ratio Glucose POC Glucose 104 H 147 H Calcium Total Bilirubin AST ALT Alkaline Phosphatase Troponin I < 0.015 Total Protein Albumin Globulin Albumin/Globulin Ratio 01/23/19 01/23/19 01/24/19 21:52 23:06 06:25 WBC 8.65 RBC 4.21 L Hgb 12.9 L Hct 38.0 L MCV 90.3 MCH 30.6 MCHC 33.9 RDW Std Deviation 43.3 RDW Coeff of Shadia 13.2 Plt Count 202 MPV 9.7 Sodium Potassium Chloride Carbon Dioxide Anion Gap BUN Creatinine Est Cr Clr Drug Dosing Est GFR ( Amer) Est GFR (Non-Af Amer) BUN/Creatinine Ratio Glucose POC Glucose 111 H Calcium Total Bilirubin AST ALT Alkaline Phosphatase Troponin I < 0.015 Total Protein Albumin Globulin Albumin/Globulin Ratio 01/24/19 06:25 WBC RBC Hgb Hct MCV MCH MCHC RDW Std Deviation RDW Coeff of Shadia Plt Count MPV Sodium 136 Potassium 4.2 Chloride 105 Carbon Dioxide 27 Anion Gap 4.0 BUN 17 Creatinine 1.01 Est Cr Clr Drug Dosing 67.2 Est GFR ( Amer) 90.0 Est GFR (Non-Af Amer) 77.7 BUN/Creatinine Ratio 17.1 Glucose 183 H POC Glucose Calcium 8.3 L Total Bilirubin 0.6 AST 17 ALT 24 Alkaline Phosphatase 51 Troponin I Total Protein 6.8 Albumin 3.2 L Globulin 3.6 Albumin/Globulin Ratio 0.9 Diagnostic Findings Cardiac catheterization images from 01/24/2019 were reviewed as noted above. Medical therapy was recommended. Medications Administered Current Inpatient Medications Acetaminophen (Tylenol) 650 mg PO Q4H PRN PRN Reason: Moderate Pain Stop: 02/22/19 15:22 Amlodipine Besylate (Norvasc) 10 mg PO DAILY LUIS MANUEL Stop: 02/23/19 08:59 Last Admin: 01/24/19 10:41 Dose: 10 mg Documented by: Aspirin (Ecotrin Ectab) 81 mg PO QAM [facility] Stop: 02/23/19 08:59 Last Admin: 01/24/19 10:42 Dose: 81 mg Documented by: Atorvastatin Calcium (Lipitor) 80 mg PO HS LUIS MANUEL Stop: 02/22/19 20:59 Last Admin: 01/23/19 21:17 Dose: 80 mg Documented by: Atropine Sulfate (Atropine Sulfate) 0.6 mg IV UD PRN PRN Reason: LOW HEART RATE Stop: 02/23/19 09:23 Dextrose (Dextrose 50%) 25 - 50 ml IV UD PRN; Protocol PRN Reason: Hypoglycemia Protocol Stop: 02/22/19 15:22 Glucagon (Glucagen) 1 mg SQ UD PRN; Protocol PRN Reason: Hypoglycemia Protocol Stop: 02/22/19 15:22 Glucose (Dex4 Glucose) 4 - 8 tabs PO UD PRN; Protocol PRN Reason: Hypoglycemia Protocol Stop: 02/22/19 15:22 Glucose (Glucose 40%) 15 - 30 gm PO UD PRN; Protocol PRN Reason: Hypoglycemia Protocol Stop: 02/22/19 15:22 Guaifenesin (Robitussin Sugar Free) 200 mg PO Q6H PRN PRN Reason: Cough Stop: 02/22/19 20:24 Sodium Chloride (Nss 1000ml) 1,000 mls @ 125 mls/hr IV .Q8H LUIS MANUEL Stop: 01/24/19 14:00 Last Admin: 01/24/19 10:42 Dose: 125 mls/hr Documented by: Sodium Chloride (Nss) 500 mls @ 999 mls/hr IV .Q31M PRN PRN Reason: IF SYS BP LESS THAN 90 Stop: 02/23/19 09:23 Insulin Aspart (Novolog Insulin Pump) 1 ea N/A ACHS [facility] Stop: 02/22/19 20:59 Last Admin: 01/24/19 13:00 Dose: 1 ea Documented by: Isosorbide Mononitrate (Imdur Extended Rel) 240 mg PO HS [facility] Stop: 02/23/19 20:59 Losartan Potassium (Cozaar) 100 mg PO DAILY [facility] Stop: 02/23/19 08:59 Last Admin: 01/24/19 10:41 Dose: 100 mg Documented by: Magnesium Oxide (Mag-Ox) 400 mg PO MoWeFr@0900 [facility] Stop: 02/23/19 08:59 Last Admin: 01/24/19 10:40 Dose: 400 mg Documented by: Metoprolol Tartrate (Lopressor) 25 mg PO BID [facility] Stop: 02/23/19 10:59 Last Admin: 01/24/19 11:52 Dose: 25 mg Documented by: Miscellaneous (Carbohydrates For Hypoglycemia) 15 - 30 gm PO UD PRN PRN Reason: Hypoglycemia Treatment Stop: 02/22/19 15:22 Nitroglycerin (Nitrostat) 0.4 mg SL UD PRN PRN Reason: CHEST PAIN Stop: 02/22/19 17:43 Ondansetron HCl (Zofran) 4 mg IV Q4H PRN PRN Reason: Nausea And Vomiting Stop: 02/22/19 15:22 Pantoprazole Sodium (Protonix) 40 mg PO DAILY [facility] Stop: 02/23/19 08:59 Last Admin: 01/24/19 10:40 Dose: 40 mg Documented by: Prasugrel (Effient) 10 mg PO DAILY [facility] Stop: 02/23/19 08:59 Last Admin: 01/24/19 10:40 Dose: 10 mg Documented by: Terazosin HCl (Hytrin) 1 mg PO HS [facility] Stop: 02/22/19 20:59 Last Admin: 01/23/19 21:17 Dose: 1 mg Documented by:
--- NOTE | 2019-01-24 15:52 | Discharge Summary ---
Date of Service January 24, 2019 Admission HPI Per Admitting Provider This is a 63 yo M with PMhx of significant CAD with CABG x 3, multiple PCI (12 times since 2010), 6 stents, 5 of which are in the LAD, and 1 to the RCA, HTN, HLD, DM type I with insulin pump, osteoarthritis, elevated PSA. Pt follows as an outaptient with Dr. Hensley, cardiology and was seen in office in [place] on 01/21/19 due to having increased chest heaviness and shortness of breath with minimal exertion x 10 days prior to that office visit. He attempted transfer by EMS to [facility] at that time, however no EMS was available so was admitted to [facility] in [place] from 01/21-01/23. There he underwent serial cardiac biomarker testing which was negative, and an exercise stress test on 01/23 where he reached 60% max of the age-predicted heart rate. Pt notes that it took him and hour and a half to recover from this test because it "wiped me out". Pt has not required any nitro tables prn in the past 2 days since being admitted however admits to having increase chest heaviness with walking about the [place]. Pt has been transferred for possible cardiac cath due to lateral ischemia seen with stress testing. Principal Diagnosis no Discharge Data Allergies Allergy/AdvReac Type Severity Reaction Status Date / Time clopidogrel Allergy Unknown HIVES Verified 02/03/17 13:57 terbinafine Allergy Unknown HIVES Verified 02/03/17 13:57 Consultations 01/23/19 15:25 Consult Cardiology Routine Consult Case Management - Discharge Planning Routine Procedures Performed Operation Date: 01/24/19 06:45 Actual Procedures p Cath, Left with Cors and Vent - Ramakrishna Hensley MD s Cineradiography w/Routine Exam - Ramakrishna Hensley MD s Ultrasound Vascular Access - Ramakrishna Hensley MD Ordered Studies 01/24/19 06:46 CL Cath Imgs for PACS use only Routine 01/24/19 06:52 CL Cath Imgs for PACS use only Routine Hospital Course (1) Heart disease: (2) CAD (coronary artery disease): (3) Benign essential HTN: (4) DM I (diabetes mellitus, type I): (5) Long-term insulin use: - Insulin pump as above. (6) HLD (hyperlipidemia): (7) Osteoarthritis: (8) DVT prophylaxis: 63 yo M with PMhx of significant CAD with CABG x 3, multiple PCI (12 times since 2010), 6 stents, 5 of which are in the LAD, and 1 to the RCA, HTN, HLD, DM type I with insulin pump, osteoarthritis, elevated PSA. Pt follows as an outaptient with Dr. Hensley, cardiology and was seen in office in [place] on 01/21/19 due to having increased chest heaviness and shortness of breath with minimal exertion x 10 days prior to that office visit. Patient was admitted in [facility] service, ce tn neg, During his hospitalization cardiac enzymes troponin were neg too, cardiac catheter was done, report was in below: 1. Patent HINTON to LAD. 2. Patent LMCA/circumflex and RCA stents. 3. Occluded ostial LAD with (previously reported). 4. Small vessel CAD. 5. Vjdn-ow-eoyp and tlrfj-nu-lbub collaterals. 6. No aortic stenosis. 7. Normal LVEDP. Plan cardiology is to optimize medical therapy. Coreg was changed to metoprolol, Post cardiac cath per protocol, after rest, patient was able to up and walk, no chest pain, for discharge home with follow-up with tree feller operator as instructed S: Patient has no complaint of chest pain O; vital signs reviewed, stable, Heart was regular rhythm, S1-S2, Lung was decreased breathing sounds no audible wheezing rhonchi no crackle Right wrist areas after cardiac cath looks good, no erythema is no cyanotic, pulse was positive Labs: Laboratory Results - last 24 hr 01/23/19 01/23/19 01/23/19 15:46 20:21 21:52 WBC RBC Hgb Hct MCV MCH MCHC RDW Std Deviation RDW Coeff of Shadia Plt Count MPV Sodium Potassium Chloride Carbon Dioxide Anion Gap BUN Creatinine Est Cr Clr Drug Dosing Est GFR ( Amer) Est GFR (Non-Af Amer) BUN/Creatinine Ratio Glucose POC Glucose 147 H 111 H Calcium Total Bilirubin AST ALT Alkaline Phosphatase Troponin I < 0.015 Total Protein Albumin Globulin Albumin/Globulin Ratio 01/23/19 01/24/19 01/24/19 23:06 06:25 06:25 WBC 8.65 RBC 4.21 L Hgb 12.9 L Hct 38.0 L MCV 90.3 MCH 30.6 MCHC 33.9 RDW Std Deviation 43.3 RDW Coeff of Shadia 13.2 Plt Count 202 MPV 9.7 Sodium 136 Potassium 4.2 Chloride 105 Carbon Dioxide 27 Anion Gap 4.0 BUN 17 Creatinine 1.01 Est Cr Clr Drug Dosing 67.2 Est GFR ( Amer) 90.0 Est GFR (Non-Af Amer) 77.7 BUN/Creatinine Ratio 17.1 Glucose 183 H POC Glucose Calcium 8.3 L Total Bilirubin 0.6 AST 17 ALT 24 Alkaline Phosphatase 51 Troponin I < 0.015 Total Protein 6.8 Albumin 3.2 L Globulin 3.6 Albumin/Globulin Ratio 0.9 Total Time Total Time Spent Total Time Spent (In Minutes): 25 Total Time Includes: Examination of the Patient, Discharge Planning, Medication Reconciliation and Communication With Other Providers Discharge Plan Discharge Items Patient Disposition: Home - Self-Care Reason For Visit: CHEST PAIN Discharge Diagnosis: Atypical chest pain Condition: Fair Discharge Goals: Decrease discomfort, Diagnostic testing, Improve disease control and Learn about illness Activity: Resume your previous activity Non-emergency contact: Primary Care Provider and Iron Carrier Call non-emergency contact if: you have any medication questions Follow-up/Referrals: Josue Romeo MD [Primary Care Provider] - Diet: Heart Healthy and Low Fat Addtl Provider Instructions: ACTIVITY RECOMMENDATIONS: It is common to feel weak and fatigue for a few days. * Do not drive or operate any motorized equipment for the next three days. * Limit stair usage (2 or 3 trips a day only) for the next three days. * Do not lift anything heavier than 10 pounds for the next three days. * Do not engage in vigorous exercise or any sports for the next five days. * You may shower the day after your procedure, but do not immerse the area for three days. Cleanse the site gently with soap and water. SPECIAL CARE INSTRUCTIONS: * You may replace the pressure dressing or band-aid the morning after the procedure. * After your procedure, it is normal to have a small bruise or small lump at the site. Examine your site daily for any change in the bruise or lump, redness, swelling, drainage or numbness. Notify your doctor if any change. BLEEDING: * If there is a small amount of bleeding at the site, lie down and apply firm pressure with a clean cloth for ten minutes. When the bleeding stops, lie quietly keeping the procedure limb straight for six hours. Notify your doctor as soon as possible. * If the bleeding does not stop after ten minutes or if there is a large amount of bleeding or spurting, call 911 immediately. Continue to lie down and hold firm pressure until help arrives. SKIN IRRITATION: * You may experience some redness and/or swelling in the area where radiation was administered. If any skin irritation occurs, please contact your family physician. FOLLOW UP VISIT: Keep any scheduled doctor appointments. You have chest pain, tree feller operator did cardiac cath for you, per report in below: 1. Patent HINTON to LAD. 2. Patent LMCA/circumflex and RCA stents. 3. Occluded ostial LAD with (previously reported). 4. Small vessel CAD. 5. Vurh-gv-lkgu and ejgcw-da-lyta collaterals. 6. No aortic stenosis. 7. Normal LVEDP. Cardiology will optimize medical therapy. you need to follow up with your primary care physician in 1 week, - take medication as instructed, never overdose or any misuse, or take with alcohol, because misuse of medicine may cause organ damage or , call me, or your primary care physician if have questions of discharge medicaitons. - call your primary care physician, or go to local emergency room if has any fever/chill, chest pain, shortness of breathing, nausea/vomiting/abdominal pain, facial droop/slurry speech/local weakness, or if has any questions. - fall precaution - diet as instructed - you need to follow up with your subspecialist, such as Dr. Hensley Prescriptions: New metoprolol tartrate 25 mg Tablet 25 mg PO BID 30 Days Qty: 60 RF: 0 Continued Aspirin (Aspirin Tab-Chewable *) 81 MG CHEWABLE TAB 81 mg PO QAM Qty: 0 RF: 0 NITROGLYCERIN (NITROSTAT) 0.4 MG SUB 0.4 mg Sublingual PRN Qty: 0 RF: 0 ATORVASTATIN (LIPITOR) 80 MG tablet 80 mg PO HS Qty: 0 RF: 0 Amlodipine (Norvasc) 10 MG tablet 10 mg PO DAILY Qty: 0 RF: 0 INSULIN ASPART (novoLOG INSULIN PUMP ) 1 EA INJECTION 1 dose Not Applicable UD Qty: 0 RF: 0 PANTOPRAZOLE (PROTONIX) 40 MG tablet 40 mg PO QAM Qty: 30 RF: 0 LOSARTAN POTASSIUM (COZAAR) 100 MG tablet 100 mg PO DAILY Qty: 0 RF: 0 MAGNESIUM OXIDE (MAG-OXIDE) 400 MG tablet 400 mg PO MWF Qty: 0 RF: 0 PRASUGREL HCL (EFFIENT) 10 MG tablet 10 mg PO QAM Qty: 0 RF: 0 Isosorbide Mononitrate (Isosorbide Mononitrate ER) 60 MG tablet 120 mg PO QPM 1 Days Qty: 0 RF: 0 Ranolazine (Ranexa) 500 MG [id number] 500 mg PO BID 1 Days Qty: 0 RF: 0 terazosin 1 mg capsule 1 mg PO HS RF: 0 Discontinued CARVEDILOL (COREG) 6.25 MG tablet 1.56 mg PO BID Qty: 0 RF: 0 Stand-Alone Forms: [facility] Discharge Orders: Discharge Order (Routine); Ordered 01/24/19 Ordered By: Baldomero Beard Admission Data Admit Date/Time: 01/23/19 15:16 Attending Provider: Baldomero Beard Admit Provider: Renetta Decker Primary Care Provider: Josue Romeo Other Providers: Renetta Decker ; Seth Cuellar Service: Telemetry
[2019-01-24] MEDS ORDERED: ISOSORBIDE MONO EXTENDED REL 60 MG TABCR PO SCH (21:00)
== END 2019-01-24 17:23 | disposition home or self-care (01) | DRG 287 ==
LOC: 2S 15:16 → SUATTDRO 15:16

== ENCOUNTER 2019-10-30 08:27 | Observation (INO) ==
[2019-10-30] MEDS ORDERED: SODIUM CHLORIDE 0.9% 500 ML IV ONE (08:40)
[2019-10-30 08:53] LABS: Basophils # (auto) 0.07 K/uL (0-0.2); Basophils % (auto) 1.1 %; Eosinophils # (auto) 0.36 K/uL (0-0.5); Eosinophils % (auto) 5.5 %; Hematocrit (blood only) 39.3 % (42-52); Hemoglobin 13.6 g/dL (14.0-18.0); Immature Granulocytes # (auto) 0.01 K/uL (0.00-0.02); Immature Granulocytes % (auto) 0.2 %; Lymphocytes # (auto) 1.57 K/uL (1.2-3.4); Lymphocytes % (auto) 24.2 %; Mean Corpuscular Hemoglobin 31.5 pg (25-34); Mean Corpuscular Hgb Conc 34.6 g/dL (32-36); Monocytes # (auto) 0.63 K/uL (0.11-0.59); Monocytes % (auto) 9.7 %; Neutrophils # (auto) 3.86 K/uL (1.4-6.5); Neutrophils % (auto) 59.3 %; Platelet Count 241 K/uL (130-400); RDW Coefficient of Variation 12.9 % (11.5-14.5); RDW Standard Deviation 42.8 fL (36.4-46.3); Red Blood Count 4.32 M/uL (4.7-6.1)
[2019-10-30 09:05] LABS: Alanine Aminotransferase 26 U/L (12-78); Albumin Level 3.7 gm/dl (3.4-5.0); Aspartate Aminotransferase 21 U/L (15-37); BUN Creatinine Ratio 14.7 (10-20); Blood Urea Nitrogen 14 mg/dl (7-18); Calcium 8.9 mg/dl (8.5-10.1); Carbon Dioxide 24 mmol/L (21-32); Chloride 107 mmol/L (98-107); Creatinine Clr Calc Pharmacy 71.8 ml/min; Est GFR (African American) 93.9; Glucose 156 mg/dl (70-99); Lipase 79 U/L (73-393); Magnesium 2.2 mg/dl (1.8-2.4); Potassium 4.5 mmol/L (3.5-5.1); Sodium 137 mmol/L (136-145)
--- NOTE | 2019-10-30 09:05 | XRay Report ---
XR chest 1V portable CLINICAL HISTORY: Chest Pain dyspnea COMPARISON STUDY: 02/03/2017 FINDINGS: Findings are prior median sternotomy. Diaphragms are smooth. Lungs are clear. IMPRESSION: No acute process. The above report was generated using voice recognition software. It may contain grammatical, syntax or spelling errors. Electronically signed by: Brad Felix M.D. 10/30/2019 9:04 AM
[2019-10-30 09:10] LABS: Albumin Globulin Ratio 0.9 (0.9-2); Alkaline Phosphatase 59 U/L (45-117); Bilirubin,Total 0.7 mg/dl (0.2-1); Globulin 4.2 gm/dl (2.5-4.0); Phosphorus 3.4 mg/dl (2.5-4.9); Total Protein 7.9 gm/dl (6.4-8.2); Troponin I < 0.015 ng/ml (0-0.045)
[2019-10-30] MEDS ORDERED: ASPIRIN CHEW 324 MG PO STA (10:06)
--- NOTE | 2019-10-30 11:06 | History & Physical Report ---
Date of Service October 30, 2019 Assessment & Plan (1) Chest pain, exertional: Patient with CAD s/p CABG x 3V with subsequent stenting, stable angina symptoms at home on medical therapy. Two weeks of worsening symptoms, increased frequency/severity as well as symptoms at rest. Concern for unstable angina. Presently with no acute EKG changes, troponin x 1 negative. Presently CP free. Patient denies symptoms consistent with CHF. Appears euvolemic on exam. 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 Consider trial of increased Ranexa 1000mg po BID. Will defer to Cardiology -NPO after midnight for possible cardiac catheterization Present on Admission?: Yes (2) History of coronary artery disease: Plan as above Present on Admission?: Yes (3) Hypercholesterolemia: Chronic. Stable -Cotinue Atorvastatin 80mg po daily Present on Admission?: Yes (4) DM I (diabetes mellitus, type I): Type I DM since age 4. Insulin pump in place. Blood sugar = 156. HgA1C = 6.5 on 08/26/19 -Maintain insulin pump -BS qHS/qAC Present on Admission?: Yes (5) Benign essential HTN: Blood pressure stable at present -Continue home medications Present on Admission?: Yes (6) Elevated PSA: Chronic. Asymptomatic -Continue Terazosin Present on Admission?: Yes (7) GERD (gastroesophageal reflux disease): Chronic. Stable -Continue Protonix F/E/N - Heplock. Electrolytes WNL. Continue Magnesium. Heart healthy diet, NPO after midnight Ppx - Low risk for DVT Code - DNR/DNI per discussion with patient Dispo - Observation to PCU History of Present Illness Chief Complaint: Chest pain Primary Care Provider: Josue Romeo MD Francisco Ornelas is a pleasant 64-year-old C male with significant CAD s/p three- vessel CABG with subsequent stenting (Please see excerpt copied from prior cardiology note from 07/29/19). Mr. Ornelas has had stable angina symptoms, exertional chest pain and shortness of breath that is relieved with rest and the occasional Nitroglycerin. He reports that his anginal symptoms do not limit his daily activities. He follows with Cardiology and is on medical management to include Amlodipine 10mg, Metoprolol 75mg and Ranolazine 500mg po BID. Unable to increase his Metoprolol due to his baseline resting bradycardia. He has been unable to tolerate a higher dose of Ranolazine in the past. He reports that his symptoms have changed over the last two weeks. He is having worsening chest pain and SOB with minimal exertion. He is now unable to perform his ADLs. His chest pain is left sided with radiation to his jaw and down the left arm. Exertional. Rellieved with rest and Nitro. He has been using sublingual Nitro at least every other day for the last two weeks. He has had occasional CP at rest as well over the last two week. He also confirms brief episodes of lightheadedness that occur intermittently. On 10/26/19 afternoon he developed fairly severe chest discomfort at rest. ER Course: ASA 324mg, NSS x 500mL He has had the following studies/procedures: 1. CABG x3 [facility] [place] 03/23/2011: HINTON to LAD and SVG sequential to 2 separate OM vessels. 2. Cardiac catheterization [facility] 09/19/2013: Patent HINTON to LAD. SVG to OM1 and OM2 occluded. Distal LM CA and proximal circumflex underwent PCI with 2 x 28 mm multilink Mini Vision stent, post dilated with 2.5 balloon. Rotational atherectomy performed in the distal LMCA and proximal circumflex. 3. Cardiac catheterization 11/01/2013 at [facility] [place]: Patent hinton to LAD. Proximal circumflex and LMCA stent patent. Prior proximal LAD stent significant in stent thrombosis 100%. Medical therapy was recommended. 4. Cardiac catheterization 05/11/2014 [facility] [place]: Patent hinton to LAD. Proximal circumflex stent 80% which underwent 2.75 x 12 mm Xience MARÍA. OM1 90% diffuse. Proximal LAD 100%. 5. Cardiac catheterization 05/14/2015 [facility]: Small OM1 100% filling by collaterals. Otherwise, stable findings. 6. Cardiac catheterization [facility] 11/16/2017: Rotational atherectomy and PCI of 80% calcified proximal/ostial RCA with single drug-eluting stent. Patent HINTON to LAD. 7. Stress Echo 10/31/2017 [facility]: Negative at 63% MPHR. 7 minutes 10 seconds Kiet protocol. Chest pain at rest which increased with activity. EF 63%. Normal wall motion. Type 2 diastolic dysfunction. No significant valvular abnormalities reported. 8. Cardiac catheterization 10/25/2018: Patent HINTON to LAD. Patent circumflex and RCA stents. This was done for abnormal stress test. 9. Echo 01/22/2019 at [facility]: Normal left ventricular systolic function. EF 62%. Hypokinesis of the mid inferolateral, mid lateral, and mid anterior wall segments. 10.Nuclear stress 01/23/2019 at [facility]: moderate sized reversible defect involving the lateral wall. EF 44%. Normal TID. 11. Cardiac catheterization 01/24/2019: Ostial LAD 100%. Lad fills via HINTON. Ostial/proximal circumflex stent patent. Large OM1 mid 30%. [id number] collaterals. Dominant RCA. Proximal RCA 30%. Proximal RCA stent with 30% in stent restenoses. Mid RCA 20%. RV branch ostial 70-80% with DEANA 3 flow. Right to left collaterals. HINTON to LAD Patent. SVG to OM previously documented as occluded. No aortic stenosis. LVEDP 7. After having cardiac catheterization on 01/24/2019, medical therapy was recommended. He was initiated on nitroglycerin patch in February for anginal symptoms; he did not tolerate 0.8 mg/hr patch but did tolerate 0.4 mg/hr patch. At his last clinic visit a month ago, he continued to note exertional chest discomfort. His metoprolol succinate was therefore increased to 75 mg daily. Al kyegiumesh Allergy/AdvReac Type Severity Reaction Status Date / Time clopidogrel Allergy Unknown HIVES Verified 10/30/19 09:36 terbinafine Allergy Unknown HIVES Verified 10/30/19 09:36 lisinopril Allergy Verified 10/30/19 09:36 Home Medications Home Medications Medication Instructions Recorded Confirmed Type lancets #100 ea 05/27/19 09/22/19 Rx ranolazine 500 mg tablet,extended 500 mg PO BID 07/29/19 10/30/19 History release,12 hr insulin aspart U-100 100 100 See Rx Instructions .ROUTE 09/02/19 10/30/19 History unit/mL subcutaneous solution .COMPLEX ml magnesium oxide 400 mg (241.3 mg 400 mg PO MOWEFR tab 09/02/19 10/30/19 History magnesium) tablet nitroglycerin 0.4 mg/hr 1 patch TD DAILY #30 ea 09/03/19 10/30/19 Rx transdermal 24 hour patch terazosin 1 mg capsule 1 mg PO HS #90 cap 10/20/19 10/30/19 Rx blood sugar diagnostic #3 box 10/29/19 Rx amlodipine 10 mg PO QAM 10/30/19 10/30/19 History aspirin 81 mg PO QAM 10/30/19 10/30/19 History atorvastatin 80 mg PO HS 10/30/19 10/30/19 History citalopram 10 mg PO QAM 10/30/19 10/30/19 History loratadine 10 mg PO HS 10/30/19 10/30/19 History losartan 100 mg PO HS 10/30/19 10/30/19 History metoprolol succinate 75 mg PO QAM 10/30/19 10/30/19 History nitroglycerin 0.4 mg SL Q5M PRN 10/30/19 10/30/19 History pantoprazole 40 mg PO QAM 10/30/19 10/30/19 History prasugrel 10 mg PO QAM 10/30/19 10/30/19 History Past Med/Surg History Medical History Benign essential HTN CAD (coronary artery disease) Crescendo angina (Acute 05/08/14) DM I (diabetes mellitus, type I) Elevated PSA HLD (hyperlipidemia) Long-term insulin use Osteoarthritis Surgical History H/O coronary artery bypass surgery H/O sinus surgery History of coronary artery stent placement Hx of cholecystectomy Stented coronary artery (Resolved) Family History Mother Stroke Thyroid disease Myocardial infarction Father Myocardial infarction Brother Coronary heart disease CABG and PCI in mid 50s Son Cancer Testicular cancer Social History Preferred Language: Russian Communication Ability: Effective Cellars Supervisor Required: No Beliefs That Will Affect Care: None marital status: Current Living Situation: Spouse current occupational status: retired 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[employer], 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 Other Information That Helps Us Care for You: No Feels Safe at Home: Yes Safety Concerns: Feels Safe At This Time Smoking Status: Never smoker Do You Dip or Chew Tobacco: No ; Second Hand Exposure: No ; Tobacco Cessation Education Requested by Patient: No Hx Alcohol Use: No Hx Substance Use: No Childhood Exposure to Second-Hand Smoke: No caffeine: Yes (coffee) during the past year weight has: remained stable Dental Care, Regularly: Yes Physical Activity Frequency: 5-6 Times per Week Seatbelt Use: always Sunscreen Use: No Do you think of yourself as: straight/heterosexual Review of Systems Review of Systems: All systems reviewed & are unremarkable except as noted in HPI & below Physical Exam Physical Exam: General: patient resting comfortably, NAD, non-toxic in appearance, AA&O x 4 Skin: warm, dry, intact, no rashes or lesions HEENT: NC/AT, PERRL, EOMI, anicteric sclera, conjunctiva without injection, external ear normal to inspection and nontender, nares patent, moist mucus membranes, dentition intact, no oropharyngeal lesions, neck supple, trachea midline, no LAD, no thyromegaly, no JVD Heart: +S1/S2, regular, no m/r/g, sternotomy scar Lungs: equal air entry bilaterally, no rales/rhonchi/wheezes Abd: +BS, soft, NT/ND, no masses/organomegaly/ascites Ext: warm, 2+ pulses in UE/LE bilaterally, no clubbing/cyanosis or edema Neuro: nonfocal, patient AA&O x 4, speech intact, no facial droop, moving all extremities on command with equal strength 5/5 Results & Data Vital Signs (Past 12 Hours) Vital Signs Temp Pulse Resp BP Pulse Ox 10/30/19 08:34 36.8 C 57 L 20 170/56 H 98 10/30/19 08:30 98 Laboratory Results Lab Results 10/30/19 10/30/19 Range/Units 08:40 08:40 WBC 6.50 (4.8-10.8) K/uL RBC 4.32 L (4.7-6.1) M/uL Hgb 13.6 L (14.0-18.0) g/dL Hct 39.3 L (42-52) % MCV 91.0 (80-100) fL MCH 31.5 (25-34) pg MCHC 34.6 (32-36) g/dL RDW Std Deviation 42.8 (36.4-46.3) fL RDW Coeff of Shadia 12.9 (11.5-14.5) % Plt Count 241 (130-400) K/uL MPV 9.0 (7.4-10.4) fL Immature Gran % (Auto) 0.2 % Neut % (Auto) 59.3 % Lymph % (Auto) 24.2 % [place] % (Auto) 9.7 % Eos % (Auto) 5.5 % Baso % (Auto) 1.1 % Immature Gran # (Auto) 0.01 (0.00-0.02) K/uL Neut # (Auto) 3.86 (1.4-6.5) K/uL Lymph # (Auto) 1.57 (1.2-3.4) K/uL [place] # (Auto) 0.63 H (0.11-0.59) K/uL Eos # (Auto) 0.36 (0-0.5) K/uL Baso # (Auto) 0.07 (0-0.2) K/uL Sodium 137 (136-145) mmol/L Potassium 4.5 (3.5-5.1) mmol/L Chloride 107 (98-107) mmol/L Carbon Dioxide 24 (21-32) mmol/L Anion Gap 5.0 (3-11) BUN 14 (7-18) mg/dl Creatinine 0.97 (0.6-1.4) mg/dl Est Cr Clr Drug Dosing 71.8 ml/min Est GFR ( Amer) 93.9 Est GFR (Non-Af Amer) 81.0 BUN/Creatinine Ratio 14.7 (10-20) Glucose 156 H (70-99) mg/dl Calcium 8.9 (8.5-10.1) mg/dl Phosphorus 3.4 (2.5-4.9) mg/dl Magnesium 2.2 (1.8-2.4) mg/dl Total Bilirubin 0.7 (0.2-1) mg/dl AST 21 (15-37) U/L ALT 26 (12-78) U/L Alkaline Phosphatase 59 (45-117) U/L Troponin I < 0.015 (0-0.045) ng/ml Total Protein 7.9 (6.4-8.2) gm/dl Albumin 3.7 (3.4-5.0) gm/dl Globulin 4.2 H (2.5-4.0) gm/dl Albumin/Globulin Ratio 0.9 (0.9-2) Lipase 79 (73-393) U/L Diagnostic Findings XR chest 1V portable CLINICAL HISTORY: Chest Pain dyspnea COMPARISON STUDY: 02/03/2017 FINDINGS: Findings are prior median sternotomy. Diaphragms are smooth. Lungs are clear. IMPRESSION: No acute process. The above report was generated using voice recognition software. It may contain grammatical, syntax or spelling errors. Electronically signed by: Brad Felix M.D. 10/30/2019 9:04 AM Dictated: 10/30/19902 Transcribed: 10/30/19902 ECG Additional Comments: SB at 58, normal axis, no acute ischemic changes Code Status & VTE Plan Code Status DNR/DNI per discussion with patient PG Care Time/CCT Total # of Minutes Spent Total Time Spent with Patient: Total time spent is greater than 50% in coordination of care (as documented) at patient's floor/unit and/or counseling patient: (1) GERD (gastroesophageal reflux disease) Esophagitis presence: esophagitis presence not specified Qualified Code(s): K21.9 - Gastro-esophageal reflux disease without esophagitis
[2019-10-30] MEDS ORDERED: INSULIN ASPART PER UNIT SC SCH (12:05)
[2019-10-30] MEDS ORDERED: GLUCOSE 40% GEL 15 GM TUBE PO PRN (12:05)
[2019-10-30] MEDS ORDERED: GLUCAGON FOR INJ 1 MG VIAL SQ PRN (12:05)
[2019-10-30] MEDS ORDERED: NITROGLYCERIN SL 0.4 MG/TAB TAB SL PRN (12:05)
[2019-10-30] MEDS ORDERED: ACETAMINOPHEN 325 MG TAB PO PRN (12:05)
[2019-10-30] MEDS ORDERED: GLUCOSE 10 TABS/TUBE PO PRN (12:05)
[2019-10-30] MEDS ORDERED: MoRPHine SULFATE 2 MG/ML CARP IV PRN (12:05)
[2019-10-30] MEDS ORDERED: DEXTROSE 50% 50 ML SYRINGE IV PRN (12:05)
[2019-10-30] MEDS: NovoLOG INSULIN PUMP SCH ×3 (12:15→21:05)
[2019-10-30] MEDS ORDERED: PERFLUTREN LIPID MICROSPHERE (DEFINITY) IV ONE (13:18)
[2019-10-30] MEDS ORDERED: INSULIN ASPART 100 UNITS/ML VIAL SC PRN (13:45)
--- NOTE | 2019-10-30 14:55 | Cardiology Consultation ---
Date of Consultation October 30, 2019 Assessment & Plan (1) Chest pain, exertional: He continues to have symptoms accelerating angina. He has had some subacute worsening of his symptoms. With this represents an unstable process or simply progression of his known coronary disease is unclear. He is known to have occlusion of a vein graft to the left circumflex system. He has undergone percutaneous intervention to the right coronary and right circumflex systems. At the time of his last catheterization there did not appear to be any additional targets for revascularization. His medical therapy has been intensified at that point. It would seem that his current symptoms do involve w orsening coronary insufficiency. We did discuss options for evaluation and treatment to include repeat coronary angiography and or intensification of his medical therapy. He did feel better on ranolazine for a while. He states that in the past he was on 2000 milligrams twice daily of ranolazine. At that dose the patient had significant orthostatic type symptoms. Use on amlodipine and high-dose long-acting nitrates. I think we will try a higher dose of ranolazine over the course of the evening and into tomorrow. I did recommend repeat angiography in order to exclude a lesion that would be amenable to percutaneous intervention. We will continue the remainder of his medical regimen to include dual anti-platelet therapy, beta blockade and high-dose atorvastatin. History of Present Illness Reason for Consultation: Chest pain Requesting Physician: Jeronimo Attending Physician: Renetta Decker, History of Present Illness The patient is a 64-year-old gentleman with an extensive history of coronary disease having previously undergone both surgical and percutaneous revascularization. Patient's last evaluation at our facility was in January of this year. He presented with symptoms of exertional chest pain and did undergo coronary angiography. That did not reveal any lesions amenable to percutaneous intervention and his medical therapy was intensified. He seemed to do well for period of time. In the outpatient setting he was also started on ranolazine. He states that this did make a difference in his exertional symptoms. However, over the course of a few months and more acutely over the past 2 weeks he has noticed worsening of his exertional chest pain. His symptoms generally involve a sense of precordial discomfort which radiates both to the left arm and the left jaw. The symptoms seem to occur exclusively with exertion. However, he is able to perform less and less activity without development of the symptoms. Usually rest and rarely nitroglycerin is required for resolution of his symptoms. He feels that he takes approximately 2 nitroglycerin tablets daily in order to alleviate symptoms of angina. Currently he is able perform light activity around the house without symptom. However, with any significant exertion such as at ascending stairs, he will get chest pain. He is accompanied to using a treadmill for daily exercise. Previously could easily walk 1 mile on the treadmill in the course of approximately 15 minutes. Now he is only able to perform half of that level of exertion without feeling poorly. He does not alwa ys experience angina. However, he generally feels quite tired afterwards for the rest of the day. He does report symptoms of chest pain at rest. However, the character of the symptoms is distinct from his typical angina. He describes this as sharp. It does not radiate to the neck or arm. It generally resolves within a few minutes. Allergies Allergy/AdvReac Type Severity Reaction Status Date / Time clopidogrel Allergy Unknown HIVES Verified 10/30/19 09:36 terbinafine Allergy Unknown HIVES Verified 10/30/19 09:36 lisinopril Allergy Verified 10/30/19 09:36 Home Medications Home Medications Medication Instructions Recorded Confirmed Type lancets #100 ea 05/27/19 09/22/19 Rx ranolazine 500 mg tablet,extended 500 mg PO BID 07/29/19 10/30/19 History release,12 hr insulin aspart U-100 100 100 See Rx Instructions .ROUTE 09/02/19 10/30/19 His tory unit/mL subcutaneous solution .COMPLEX ml magnesium oxide 400 mg (241.3 mg 400 mg PO MOWEFR tab 09/02/19 10/30/19 History magnesium) tablet nitroglycerin 0.4 mg/hr 1 patch TD DAILY #30 ea 09/03/19 10/30/19 Rx transdermal 24 hour patch terazosin 1 mg capsule 1 mg PO HS #90 cap 10/20/19 10/30/19 Rx blood sugar diagnostic #3 box 10/29/19 Rx amlodipine 10 mg PO QAM 10/30/19 10/30/19 History aspirin 81 mg PO QAM 10/30/19 10/30/19 History atorvastatin 80 mg PO HS 10/30/19 10/30/19 History citalopram 10 mg PO QAM 10/30/19 10/30/19 History loratadine 10 mg PO HS 10/30/19 10/30/19 History losartan 100 mg PO HS 10/30/19 10/30/19 History metoprolol succinate 75 mg PO QAM 10/30/19 10/30/19 History nitroglycerin 0.4 mg SL Q5M PRN 10/30/19 10/30/19 History pantoprazole 40 mg PO QAM 10/30/19 10/30/19 History prasugrel 10 mg PO QAM 10/30/19 10/30/19 History Patient History Medical History Benign essential HTN CAD (coronary artery disease) Crescendo angina (Acute 05/08/14) DM I (diabetes mellitus, type I) Elevated PSA Long-term insulin use Osteoarthritis Surgical History H/O coronary artery bypass surgery H/O sinus surgery History of coronary artery stent placement Hx of cholecystectomy Stented coronary artery (Resolved) Family History Mother Stroke Thyroid disease Myocardial infarction Father Myocardial infarction Brother Coronary heart disease CABG and PCI in mid 50s Son Cancer Testicular cancer Social History Preferred Language: Kinyarwanda Communication Ability: Effective Hairspring Cutter Required: No Beliefs That Will Affect Care: None marital status: Current Living Situation: Spouse current occupational status: 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 He has had some mild dizziness and lightheadedness lately. He does not describe this as presyncope. He does not exclusively related to changes in position. No actual syncope. No swelling of lower extremities. No recent constitutional symptoms such as fevers or chills Physical Exam Physical Exam: The patient is alert and oriented. Mood and affect appeared normal. He answered all questions appropriately. HEENT: Pupils are equal and reactive to light and accommodation. Extraocular movements are intact. The sclerae are anicteric. Tim complexion Neuro: Cranial nerves intact Neck: Patient's neck is supple. He has palpable carotid pulses bilaterally w ithout bruits on auscultation. There is no evidence of jugular venous distention. The thyroid is not enlarged. Lungs: Clear to auscultation bilaterally. He has good air movement without use of accessory muscles. No rales wheezes or rhonchi. Cardiac: Heart demonstrates a regular rate and rhythm. Normal S1 and S2. No murmurs on examination. Pulses: The patient has palpable radial pulses bilaterally but the left is fairly faint relative to the right. He has a normal right femoral pulse without bruit. Extremities: There was no evidence of hypoperfusion. There is no cyanosis or clubbing. There is no edema. Skin: I did not appreciate any rashes on examination today. Results & Data Vital Signs (Past 12 Hours) Vital Signs Temp Pulse Pulse Resp BP BP Pulse Ox 10/30/19 12:03 36.3 C L 53 L 18 160/70 H 93 10/30/19 12:00 55 L 10/30/19 11:01 54 L 15 10/30/19 11:00 53 L 18 134/66 10/30/19 10:31 56 L 18 10/30/19 10:30 54 L 20 135/65 10/30/19 10:01 56 L 15 10/30/19 10:00 52 L 14 136/65 10/30/19 09:31 52 L 13 10/30/19 09:30 54 L 16 133/61 10/30/19 09:19 55 L 13 139/59 L 10/30/19 09:00 56 L 20 10/30/19 08:35 57 L 23 10/30/19 08:34 36.8 C 57 L 20 170/56 H 98 10/30/19 08:32 59 L 21 170/56 H 10/30/19 08:30 98 Laboratory Results Abnormal Lab Results 10/30/19 10/30/19 10/30/19 08:40 08:40 12:13 WBC 6.50 RBC 4.32 L Hgb 13.6 L Hct 39.3 L MCV 91.0 MCH 31.5 MCHC 34.6 RDW Std Deviation 42.8 RDW Coeff of Shadia 12.9 Plt Count 241 MPV 9.0 Immature Gran % (Auto) 0.2 Neut % (Auto) 59.3 Lymph % (Auto) 24.2 Rowan % (Auto) 9.7 Eos % (Auto) 5.5 Baso % (Auto) 1.1 Immature Gran # (Auto) 0.01 Neut # (Auto) 3.86 Lymph # (Auto) 1.57 Rowan # (Auto) 0.63 H Eos # (Auto) 0.36 Baso # (Auto) 0.07 Sodium 137 Potassium 4.5 Chloride 107 Carbon Dioxide 24 Anion Gap 5.0 BUN 14 Creatinine 0.97 Est Cr Clr Drug Dosing 71.8 Est GFR ( Amer) 93.9 Est GFR (Non-Af Amer) 81.0 BUN/Creatinine Ratio 14.7 Glucose 156 H POC Glucose 84 Calcium 8.9 Phosphorus 3.4 Magnesium 2.2 Total Bilirubin 0.7 AST 21 ALT 26 Alkaline Phosphatase 59 Troponin I < 0.015 Total Protein 7.9 Albumin 3.7 Globulin 4.2 H Albumin/Globulin Ratio 0.9 Lipase 79 Diagnostic Findings 1. CABG x3 [facility] [place]: BRUNNER to LAD and SVG sequential to 2 separate OM vessels. 2. Cardiac catheterization [facility] [place] 09/19/2013: Patent BRUNNER to LAD. SVG to OM1 and OM2 occluded. Distal LM CA and proximal circumflex underwent PCI with 2 x 28 mm multilink Mini Vision stent, post dilated with 2.5 balloon. Rotational atherectomy performed in the distal LMCA and proximal circumflex. 3. Cardiac catheterization 11/01/2013 at [facility] [place]: Patent brunner to LAD. Proximal circumflex and LMCA stent patent. Prior proximal LAD stent significant in stent thrombosis 100%. Medical therapy was recommended. 4. Cardiac catheterization 05/11/2014 [facility] [place]: Patent brunner to LAD. Proximal circumflex stent 80% which underwent 2.75 x 12 mm Xience MARÍA. OM1 90% diffuse. Proximal LAD 100%. 5. Cardiac catheterization 05/14/2015 [facility] [place]: Small OM1 100% filling by collaterals. Otherwise, stable findings. 6. Cardiac catheterization [facility] [place] 11/16/2017: Rotational atherectomy and PCI of 80% calcified proximal/ostial RCA with single drug-eluting stent. Patent BRUNNER to LAD. 7. Stress Echo 10/31/2017 [facility]: Negative at 63% MPHR. 7 minutes 10 seconds Kiet protocol. Chest pain at rest which increased with activity. EF 63%. Normal wall motion. Type 2 diastolic dysfunction. No significant valvular abnormalities reported. 8. Cardiac catheterization 10/25/2018: Patent BRUNNER to LAD. Patent circumflex and RCA stents. This was done for abnormal stress test. 9. Echo 01/22/2019 at [facility]: Normal left ventricular systolic function. EF 62%. Hypokinesis of the mid inferolateral, mid lateral, and mid anterior wall segments. 10.Nuclear stress 01/23/2019 at [facility]: moderate sized reversible defect involving the lateral wall. EF 44%. Normal TID. 11. Cardiac catheterization 01/24/2019: Ostial LAD 100%. Lad fills via BRUNNER. Ostial/proximal circumflex stent patent. Large OM1 mid 30%. [id number] collaterals. Dominant RCA. Proximal RCA 30%. Proximal RCA stent with 30% in stent restenoses. Mid RCA 20%. RV branch ostial 70-80% with DEANA 3 flow. Right to left collaterals. BRUNNER to LAD Patent. SVG to OM previously documented as occluded. No aortic stenosis. LVEDP 7. Chest x-ray obtained at the time of admission did not reveal any acute cardiopulmonary process ECG Additional Comments: EKG obtained at the time admission was normal. PG Care Time/CCT Total # of Minutes Spent Total Time Spent with Patient: Total time spent is greater than 50% in coordination of care (as documented) at patient's floor/unit and/or counseling patient:
--- NOTE | 2019-10-30 15:46 | Emergency Department Note ---
Entered by Maribel Austin acting as a scribe for Gurpreet Hilliard MD History of Present Illness General Chief complaint: Chest Pain Stated complaint: CHEST PAIN, TROUBLE BREATHING Time Seen by Provider: 10/30/19 08:39 Source: patient History of Present Illness Provider complaint: chest pain Onset (ago): week(s) 2 Location: chest Radiation: non-radiation Pain Consistency: + intermittent Maximum Pain Intensity: 2 Relieved By: + rest Exacerbated By: + movement Associated symptoms: + denies other symptoms The patient is a 64 y/o male who presents to the emergency department for evaluation of intermittent chest pain with excretion that began two weeks ago. The patient reports that he has been dealing with this for a while and has had a heart cath in January as well as medication but the medication has stopped helping. He reports that he feels like he has the flu because he has no energy, SOB, and chest pain but with rest he starts to feel better. The patient notes that yesterday we wanted to get into [facility] cardiology and they instructed him to come to the ED. He states he is a type 1 diabetic but his sugars have been in the mid 100s. The patient denies any other symptoms. Home Medications Home Medications Medication Instructions Recorded Confirmed Type lancets #100 ea 05/27/19 09/22/19 Rx ranolazine 500 mg tablet,extended 500 mg PO BID 07/29/19 10/30/19 History release,12 hr insulin aspart U-100 100 100 See Rx Instructions .ROUTE 09/02/19 10/30/19 History unit/mL subcutaneous solution .COMPLEX ml magnesium oxide 400 mg (241.3 mg 400 mg PO MOWEFR tab 09/02/19 10/30/19 History magnesium) tablet nitroglycerin 0.4 mg/hr 1 patch TD DAILY #30 ea 09/03/19 10/30/19 Rx transdermal 24 hour patch terazosin 1 mg capsule 1 mg PO HS #90 cap 10/20/19 10/30/19 Rx blood sugar diagnostic #3 box 10/29/19 Rx amlodipine 10 mg PO QAM 10/30/19 10/30/19 History aspirin 81 mg PO QAM 10/30/19 10/30/19 History atorvastatin 80 mg PO HS 10/30/19 10/30/19 History citalopram 10 mg PO QAM 10/30/19 10/30/19 History loratadine 10 mg PO HS 10/30/19 10/30/19 History losartan 100 mg PO HS 10/30/19 10/30/19 History metoprolol succinate 75 mg PO QAM 10/30/19 10/30/19 History nitroglycerin 0.4 mg SL Q5M PRN 10/30/19 10/30/19 History pantoprazole 40 mg PO QAM 10/30/19 10/30/19 History prasugrel 10 mg PO QAM 10/30/19 10/30/19 History Allergies Allergy/AdvReac Type Severity Reaction Status Date / Time clopidogrel Allergy Unknown HIVES Verified 10/30/19 09:36 terbinafine Allergy Unknown HIVES Verified 10/30/19 09:36 lisinopril Allergy Verified 10/30/19 09:36 Past Med/Surg History Medical History Benign essential HTN CAD (coronary artery disease) Crescendo angina (Acute 05/08/14) DM I (diabetes mellitus, type I) Elevated PSA Long-term insulin use Osteoarthritis Surgical History H/O coronary artery bypass surgery H/O sinus surgery History of coronary artery stent placement Hx of cholecystectomy Stented coronary artery (Resolved) Family History Mother Stroke Thyroid disease Myocardial infarction Father Myocardial infarction Brother Coronary heart disease CABG and PCI in mid 50s Son Cancer Testicular cancer Social History Preferred Language: Belarusian Communication Ability: Effective 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 Beliefs That Will Affect Care: None marital status: Current Living Situation: Spouse current occupational status: retired 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 and A total of 10 systems reviewed and were otherwise negative Physical Exam Vital Signs Vital Signs - 24 hr 10/30/19 08:30 10/30/19 08:32 10/30/19 08:34 Temperature 36.8 C Temperature Source Oral Oral Pulse Rate 59 L 57 L Respiratory Rate 21 20 Respiratory Effort / Characteristics Non-Labored Spontaneous Respiratory Depth Normal Blood Pressure 170/56 H 170/56 H Blood Pressure Mean 125 94 Blood Pressure Position Sitting Pulse Oximetry 98 98 Oxygen Delivery Method Room Air Room Air Sepsis Recent Fever Within 48 Hours No Sepsis Action Taken by Nursing No Action Required 10/30/19 08:35 10/30/19 09:00 10/30/19 09:19 Temperature Temperature Source Pulse Rate 57 L 56 L 55 L Respiratory Rate 23 20 13 Respiratory Effort / Characteristics Respiratory Depth Blood Pressure 139/59 L Blood Pressure Mean 82 Blood Pressure Position Pulse Oximetry Oxygen Delivery Method Sepsis Recent Fever Within 48 Hours Sepsis Action Taken by Nursing 10/30/19 09:30 10/30/19 09:31 10/30/19 10:00 Temperature Temperature Source Pulse Rate 54 L 52 L 52 L Respiratory Rate 16 13 14 Respiratory Effort / Characteristics Respiratory Depth Blood Pressure 133/61 136/65 Blood Pressure Mean 88 92 Blood Pressure Position Pulse Oximetry Oxygen Delivery Method Sepsis Recent Fever Within 48 Hours Sepsis Action Taken by Nursing 10/30/19 10:01 10/30/19 10:30 10/30/19 10:31 Temperature Temperature Source Pulse Rate 56 L 54 L 56 L Respiratory Rate 15 20 18 Respiratory Effort / Characteristics Respiratory Depth Blood Pressure 135/65 Blood Pressure Mean 88 Blood Pressure Position Pulse Oximetry Oxygen Delivery Method Sepsis Recent Fever Within 48 Hours Sepsis Action Taken by Nursing GENERAL: Awake, alert, fatigued-appearing, in no distress HENT: Normocephalic, atraumatic. Oropharynx with dry mucous membranes and otherwise unremarkable. EYES: Normal conjunctiva. Sclera non-icteric. NECK: Supple. No nuchal rigidity. FROM. No JVD. RESPIRATORY: Clear to auscultation bilaterally CARDIAC: Regular rate, normal rhythm. Extremities warm and well perfused. Pulses equal. ABDOMEN: Soft, non-distended. No tenderness to palpation. No rebound or guarding. No masses. RECTAL: Deferred. MUSCULOSKELETAL: Chest examination reveals no tenderness. The back is symmetrical on inspection without obvious abnormality. There is no CVA tenderness to palpation. No joint edema. LOWER EXTREMITIES: Calves are equal size bilaterally and non-tender. No edema. No discoloration. NEURO: Normal sensorium. No sensory or motor deficits noted. SKIN: No rash or jaundice noted. Course Course 0848: Past medical records reviewed. The patient was evaluated in room A10. A complete history and physical exam was performed. 1006: I spoke with Radha Hammond PA-C [facility] hospitalist, she will evaluate for further management. 1028: I updated the patient on his results and the treatment plan. Administered Medications Atorvastatin Calcium (Lipitor) 80 mg PO [facility] Stop: 11/29/19 20:59 Last Admin: 10/30/19 20:30 Dose: 80 mg Documented by: [id number] Insulin Aspart (Novolog Insulin Pump) 1 ea N/A [facility]; Protocol Stop: 11/29/19 16:29 Last Admin: 10/30/19 21:05 Dose: 1 ea Documented by: [id number] Cosigned by: [id number] Admin: 10/30/19 17:01 Dose: 5 ea Documented by: [id number] Admin: 10/30/19 12:15 Dose: 7 ea Documented by: [id number] Loratadine (Claritin) 10 mg PO [facility] Stop: 11/29/19 20:59 Last Admin: 10/30/19 20:30 Dose: 10 mg Documented by: [id number] Losartan Potassium (Cozaar) 100 mg PO [facility] Stop: 11/29/19 20:59 Last Admin: 10/30/19 20:31 Dose: 100 mg Documented by: [id number] Miscellaneous (Carbohydrates For Hypoglycemia) 15 - 30 gm PO UD PRN PRN Reason: Hypoglycemia Protocol Stop: 11/29/19 12:04 Last Admin: 10/30/19 20:58 Dose: 15 gm Documented by: [id number] Admin: 10/30/19 20:41 Dose: 30 gm Documented by: [id number] Admin: 10/30/19 20:28 Dose: 15 gm Documented by: [id number] Miscellaneous (Remove Nitro-Dur Patch) 1 ea N/A DAILY@2100 [facility] Stop: 11/29/19 20:59 Last Admin: 10/30/19 20:31 Dose: 1 ea Documented by: [id number] Ranolazine (Ranexa) 1,000 mg PO BID [facility] Stop: 11/29/19 20:59 Last Admin: 10/30/19 20:30 Dose: 1,000 mg Documented by: [id number] Terazosin HCl (Hytrin) 1 mg PO HS [facility] Stop: 11/29/19 20:59 Last Admin: 10/30/19 20:29 Dose: 1 mg Documented by: [id number] Discontinued Medications Aspirin (Aspirin) 324 mg PO NOW STA Stop: 10/30/19 10:07 Last Admin: 10/30/19 10:24 Dose: 324 mg Documented by: [id number] Sodium Chloride (Nss) 500 mls @ 999 mls/hr IV .Q31M ONE Stop: 10/30/19 09:10 Last Infusion: 10/30/19 10:14 Dose: 0 mls/hr Documented by: [id number] Admin: 10/30/19 09:34 Dose: 999 mls/hr Documented by: [id number] Perflutren Lipid Microsphere (Definity) 2 ml IV ONCE ONE Stop: 10/30/19 13:19 Last Admin: 10/30/19 13:18 Dose: 2 ml Documented by: [id number] Medical Decision Making Differential Diagnosis the differential was considered includes acute myocardial infarction, acute coronary syndrome, myocarditis, pericarditis, pericardial effusions /tamponad, esophageal perforation, thoracic aortic dissection, pulmonary embolism, pneumonia, pneumothorax, pancreatitis, shingles, acute cholecystitis, perforated abdominal viscus. Medical Records Attestation: I reviewed the patient's medical records. Home Medications Current Medication List: was personally reviewed by me Laboratory Data Attestation: I reviewed the patient's lab results. Result diagrams: 10/30/19 08:40 10/30/19 08:40 Lab Results 10/30/19 10/30/19 Range/Units 08:40 08:40 WBC 6.50 (4.8-10.8) K/uL RBC 4.32 L (4.7-6.1) M/uL Hgb 13.6 L (14.0-18.0) g/dL Hct 39.3 L (42-52) % MCV 91.0 (80-100) fL MCH 31.5 (25-34) pg MCHC 34.6 (32-36) g/dL RDW Std Deviation 42.8 (36.4-46.3) fL RDW Coeff of Shadia 12.9 (11.5-14.5) % Plt Count 241 (130-400) K/uL MPV 9.0 (7.4-10.4) fL Immature Gran % (Auto) 0.2 % Neut % (Auto) 59.3 % Lymph % (Auto) 24.2 % [place] % (Auto) 9.7 % Eos % (Auto) 5.5 % Baso % (Auto) 1.1 % Immature Gran # (Auto) 0.01 (0.00-0.02) K/uL Neut # (Auto) 3.86 (1.4-6.5) K/uL Lymph # (Auto) 1.57 (1.2-3.4) K/uL [place] # (Auto) 0.63 H (0.11-0.59) K/uL Eos # (Auto) 0.36 (0-0.5) K/uL Baso # (Auto) 0.07 (0-0.2) K/uL Sodium 137 (136-145) mmol/L Potassium 4.5 (3.5-5.1) mmol/L Chloride 107 (98-107) mmol/L Carbon Dioxide 24 (21-32) mmol/L Anion Gap 5.0 (3-11) BUN 14 (7-18) mg/dl Creatinine 0.97 (0.6-1.4) mg/dl Est Cr Clr Drug Dosing 71.8 ml/min Est GFR ( Amer) 93.9 Est GFR (Non-Af Amer) 81.0 BUN/Creatinine Ratio 14.7 (10-20) Glucose 156 H (70-99) mg/dl Calcium 8.9 (8.5-10.1) mg/dl Phosphorus 3.4 (2.5-4.9) mg/dl Magnesium 2.2 (1.8-2.4) mg/dl Total Bilirubin 0.7 (0.2-1) mg/dl AST 21 (15-37) U/L ALT 26 (12-78) U/L Alkaline Phosphatase 59 (45-117) U/L Troponin I < 0.015 (0-0.045) ng/ml Total Protein 7.9 (6.4-8.2) gm/dl Albumin 3.7 (3.4-5.0) gm/dl Globulin 4.2 H (2.5-4.0) gm/dl Albumin/Globulin Ratio 0.9 (0.9-2) Lipase 79 (73-393) U/L Imaging Data Radiologist's Impression: Radiology results as stated below per my review and the radiologist's interpretation: XR chest 1V portable CLINICAL HISTORY: Chest Pain dyspnea COMPARISON STUDY: 02/03/2017 FINDINGS: Findings are prior median sternotomy. Diaphragms are smooth. Lungs are clear. IMPRESSION: No acute process. The above report was generated using voice recognition software. It may contain grammatical, syntax or spelling errors. Electronically signed by: Brad Felix M.D. 10/30/2019 9:04 AM ECG Data Attestation: I personally reviewed and interpreted this ECG as follows: Indication: + chest pain Rate (beats per minute): 58 Rhythm: + sinus bradycardia ECG [place]: + Normal ECG Findings: + Other (No ischemic changes, QTC: 396); no PACs and no PVCs Blood Pressure Blood Pressure Findings: Elevated blood pressure Blood Pressure Disposition: further management by hospitalist BERNARDA Narrative The patient is a pleasant 64-year-old old gentleman with a past medical history of CAD status post PCI who presents emergency department with worsening and persistent exertional chest pain over the past 2 weeks in the setting of generalized fatigue over the past several months per HPI. Of note the patient did have a heart catheterization in January 2019 for which stable findings recommended optimization of medical management. On arrival the patient denies any chest pain at this time. He is in no acute distress, afebrile stable vital signs. EKG without overt acute ischemia. Chest x-ray negative for acute process. WBC and platelets within normal limits. H/H 13.6/39.3 improved from prior values. Chemistry without acidosis. Electrolytes and LFTs unremarkable. Troponin negative/undetectable. Heart score 6, moderate risk. Given the patient's worsening exertional symptoms in the setting of his extensive cardiac history reasonable to admit the patient for further evaluation. Patient was agreeable with this. Patient was given full dose aspirin. Case was discussed with Radha TOMLINSON PA-C who will evaluate the patient for admission under [facility] hospitalist. Impression & Plan Chest pain, exertional, History of coronary artery disease, History of hy pertension, History of diabetes mellitus Discharge Plan Visit Data *Final* Discharge Date/Time: 10/30/19 11:59 Chief Complaint: Chest Pain Stated Complaint: CHEST PAIN, TROUBLE BREATHING ED Provider: Gurpreet Hilliard Discharge Problem: Chest pain, exertional, History of coronary artery disease, History of hypertension, History of diabetes mellitus Patient Disposition: Admitted As Inpatient Discharge Instructions Interventions: ED Discharge Assessment Last Done: 10/30/19 11:59 Risk - HEART Scoring HEART Score for Major Cardiac Events History: Highly Suspicious EKG: Normal Age: > 64 Years of Age Risk Factors: >2 Risk Factors Initial Troponin: Normal Limit Total Points: 6 Risk Level: Moderate Risk for Major Adverse Cardiac Event HEART Score Interpretation: Score interpretation (as per derivation study): HEART Adverse Cardiac Score Event Risk Management 0-3 0.9-1.7% In the HEART Score study, these patients were discharged. 4-6 12-16.6% In the HEART Score study, these patients were admitted to the hospital. 7-10 50-65% In the HEART Score study, these patients were candidates for early invasive measurements. Original Source: 1. Rio AJ, Soo BE, Nick BELIA. Chest pain in the emergency room: value of the HEART score. Net Heart J. 2008; 16(6):191-6. The scribe's documentation has been prepared under my direction and personally reviewed by me in its entirety. I confirm that the note above accurately reflects all work, treatment, procedures, and medical decision making performed by me.
[2019-10-30 16:24] LABS: NT Pro B Type Natriuretic Pept 203 pg/ml (0-900); Troponin I < 0.015 ng/ml (0-0.045)
[2019-10-30] MEDS: CARBOHYDRATES FOR HYPOGLYCEMIA PO PRN ×3 (20:28→20:58)
[2019-10-30] MEDS: RANOLAZINE 500 MG ER TAB PO SCH (20:30)
[2019-10-30] MEDS ORDERED: ATORVASTATIN 40 MG TAB PO SCH (21:00)
[2019-10-30] MEDS ORDERED: LORATADINE 10 MG TAB PO SCH (21:00)
[2019-10-30] MEDS ORDERED: RANOLAZINE 500 MG ER TAB PO SCH (21:00)
[2019-10-30] MEDS ORDERED: LOSARTAN POTASSIUM 50 MG TAB PO SCH (21:00)
[2019-10-30] MEDS ORDERED: TERAZOSIN HCL 1 MG CAP PO SCH (21:00)
[2019-10-31 06:43] LABS: Basophils # (auto) 0.06 K/uL (0-0.2); Basophils % (auto) 0.8 %; Eosinophils # (auto) 0.34 K/uL (0-0.5); Eosinophils % (auto) 4.7 %; Hematocrit (blood only) 37.2 % (42-52); Hemoglobin 12.4 g/dL (14.0-18.0); Immature Granulocytes # (auto) 0.01 K/uL (0.00-0.02); Immature Granulocytes % (auto) 0.1 %; Lymphocytes # (auto) 1.59 K/uL (1.2-3.4); Lymphocytes % (auto) 21.9 %; Mean Corpuscular Hemoglobin 30.9 pg (25-34); Mean Corpuscular Hgb Conc 33.3 g/dL (32-36); Mean Corpuscular Volume 92.8 fL (80-100); Monocytes # (auto) 0.72 K/uL (0.11-0.59); Monocytes % (auto) 9.9 %; Neutrophils # (auto) 4.54 K/uL (1.4-6.5); Neutrophils % (auto) 62.6 %; Platelet Count 214 K/uL (130-400); RDW Coefficient of Variation 12.8 % (11.5-14.5); RDW Standard Deviation 43.5 fL (36.4-46.3); Red Blood Count 4.01 M/uL (4.7-6.1); White Blood Count 7.26 K/uL (4.8-10.8)
[2019-10-31 07:17] LABS: BUN Creatinine Ratio 13.3 (10-20); Calcium 8.8 mg/dl (8.5-10.1); Creatinine Clr Calc Pharmacy 64.9 ml/min; Est GFR (African American) 86.3; Est GFR (Non-African American) 74.5; Potassium 4.6 mmol/L (3.5-5.1)
[2019-10-31] MEDS: RANOLAZINE 500 MG ER TAB PO SCH (08:54)
[2019-10-31] MEDS ORDERED: ASPIRIN 81 MG ECTAB PO SCH (09:00)
[2019-10-31] MEDS ORDERED: NITROGLYCERIN 0.4 MG/HR PATCH TD SCH (09:00)
[2019-10-31] MEDS ORDERED: METOPROLOL SUCC 25MG EXT REL TAB PO SCH (09:00)
[2019-10-31] MEDS ORDERED: AMLODIPINE BESYLATE 5 MG TAB PO SCH (09:00)
[2019-10-31] MEDS ORDERED: MAGNESIUM OXIDE 400 MG TAB PO SCH (09:00)
[2019-10-31] MEDS ORDERED: PRASugrel TAB 10 MG TAB PO SCH (09:00)
[2019-10-31] MEDS ORDERED: PANTOprazole 40 MG TAB PO SCH (09:00)
[2019-10-31] MEDS ORDERED: CITALOPRAM 20 MG TAB PO SCH (09:00)
[2019-10-31] MEDS: NovoLOG INSULIN PUMP SCH ×2 (12:09→12:10)
--- NOTE | 2019-10-31 12:17 | Discharge Summary ---
Date of Service October 31, 2019 Admission HPI Per Admitting Provider Francisco Ornelas is a pleasant 64-year-old C male with significant CAD s/p three- vessel CABG with subsequent stenting (Please see excerpt copied from prior cardiology note from 07/29/19). Mr. Ornelas has had stable angina symptoms, exertional chest pain and shortness of breath that is relieved with rest and the occasional Nitroglycerin. He reports that his anginal symptoms do not limit his daily activities. He follows with Cardiology and is on medical management to include Amlodipine 10mg, Metoprolol 75mg and Ranolazine 500mg po BID. Unable to increase his Metoprolol due to his baseline resting bradycardia. He has been unable to tolerate a higher dose of Ranolazine in the past. He reports that his symptoms have changed over the last two weeks. He is having worsening chest pain and SOB with minimal exertion. He is now unable to perform his ADLs. His chest pain is left sided with radiation to his jaw and down the left arm. Exertional. Rellieved with rest and Nitro. He has been using sublingual Nitro at least every other day for the last two weeks. He has had occasional CP at rest as well over the last two week. He also confirms brief episodes of lightheadedness that occur intermittently. On 10/26/19 afternoon he developed fairly severe chest discomfort at rest. ER Course: ASA 324mg, NSS x 500mL He has had the following studies/procedures: 1. CABG x3 [facility] 03/23/2011: HINTON to LAD and SVG sequential to 2 separate OM vessels. 2. Cardiac catheterization [facility] 09/19/2013: Patent HINTON to LAD. SVG to OM1 and OM2 occluded. Distal LM CA and proximal circumflex underwent PCI with 2 x 28 mm multilink Mini Vision stent, post dilated with 2.5 balloon. Rotational atherectomy performed in the distal LMCA and proximal circumflex. 3. Cardiac catheterization 11/01/2013 at [facility]: Patent hinton to LAD. Proximal circumflex and LMCA stent patent. Prior proximal LAD stent significant in stent thrombosis 100%. Medical therapy was recommended. 4. Cardiac catheterization 05/11/2014 [facility]: Patent hinton to LAD. Proximal circumflex stent 80% which underwent 2.75 x 12 mm Xience MARÍA. OM1 90% diffuse. Proximal LAD 100%. 5. Cardiac catheterization 05/14/2015 [facility]: Small OM1 100% filling by collater als. Otherwise, stable findings. 6. Cardiac catheterization [facility] 11/16/2017: Rotational atherectomy and PCI of 80% calcified proximal/ostial RCA with single drug-eluting stent. Patent HINTON to LAD. 7. Stress Echo 10/31/2017 [facility]: Negative at 63% MPHR. 7 minutes 10 seconds Kiet protocol. Chest pain at rest which increased with activity. EF 63%. Normal wall motion. Type 2 diastolic dysfunction. No significant valvular abnormalities reported. 8. Cardiac catheterization 10/25/2018: Patent HINTON to LAD. Patent circumflex and RCA stents. This was done for abnormal stress test. 9. Echo 01/22/2019 at [facility]: Normal left ventricular systolic function. EF 62%. Hypokinesis of the mid inferolateral, mid lateral, and mid anterior wall segments. 10.Nuclear stress 01/23/2019 at [facility]: moderate sized reversible defect involving the lateral wall. EF 44%. Normal TID. 11. Cardiac catheterization 01/24/2019: Ostial LAD 100%. Lad fills via HINTON. Ostial/proximal circumflex stent patent. Large OM1 mid 30%. [id number] collaterals. Dominant RCA. Proximal RCA 30%. Proximal RCA stent with 30% in stent restenoses. Mid RCA 20%. RV branch ostial 70-80% with DEANA 3 flow. Right to left collaterals. HINTON to LAD Patent. SVG to OM previously documented as occluded. No aortic stenosis. LVEDP 7. After having cardiac catheterization on 01/24/2019, medical therapy was recommended. He was initiated on nitroglycerin patch in February for anginal symptoms; he did not tolerate 0.8 mg/hr patch but did tolerate 0.4 mg/hr patch. At his last clinic visit a month ago, he continued to note exertional chest discomfort. His metoprolol succinate was therefore increased to 75 mg daily. Principal Diagnosis chest pain due to stable angina - resolved; no evidence of ACS Discharge Exam Constitutional well developed and well nourished; no acute distress ENMT external ear and nose normal, oropharynx normal Respiratory normal respiratory effort, lungs clear to auscultation Cardiovascular Rate/Rhythm: regular rate and regular rhythm Heart Sounds: normal S1 and normal S2; no murmur Vessels: posterior tibial pulses present and dorsalis pedis pulses present; no JVD Extremities: no edema Gastrointestinal (Abdomen) normal bowel sounds, soft, nontender, no hepatosplenomegaly Psychiatric A+Ox3, euthymic affect Discharge Data Allergies Allergy/AdvReac Type Severity Reaction Status Date / Time clopidogrel Allergy Unknown HIVES Verified 11/04/19 13:04 terbinafine Allergy Unknown HIVES Verified 11/04/19 13:04 lisinopril Allergy Verified 11/04/19 13:04 Consultations cardiology - Jose Francisco Cuellar MD Procedures Performed echocardiogram - * EF 60-65% * grade 2 diastolic dysfunction * normal LV wall motion * normal sized IVC * normal valve function Hospital Course (1) Chest pain, exertional: The patient's presenting symptoms were consistent with his chronic angina from his known CAD. Fortunately he had no evidence of ACS with 3 negative troponins while hospitalized. Telemetry was normal while here. Echocardiogram was performed showing intact LV function and normal wall motion. He did not have additional episodes of chest pain or dyspnea while hospitalized. He was [facility] in [facility]. Various options were discussed for treatment and medical management was ultimately pursued. At discharge Mr Ornelas was advised to increase his ranexa to 1000mg twice daily. No other changes were made. He was also given a refill on his SL nitroglycerin tablets. Mr Ornelas will follow-up with the [facility] clinic within a week of discharge. If his anginal symptoms persist despite the ranexa increase either additional medication changes could be pursued OR a repeat cardiac catheterization could be offered. (2) 3-vessel CAD: Continue aspirin, statin, amlodipine, beta gonsalo, ARB, nitropatch, prasugrel, and ranexa. Ranexa dose increased to 1000mg BID as recommended by Dr Cuellar. (3) DM I (diabetes mellitus, type I): Most recent hemoglobin a1c was <7%. T1DM was stable while hospitalized. (4) Benign essential HTN: BP was transiently elevated at time of ER presentation but quickly normalized. No medication changes were made while here. Total Time Total Time Spent Total Time Spent (In Minutes): 25 Total Time Includes: Examination of the Patient, Discharge Planning, Medication Reconciliation and Communication With Other Providers Discharge Plan Discharge Items Patient Disposition: Home - Self-Care Reason For Visit: CHEST PAIN Discharge Diagnosis: chest pain - no evidence of heart attack. chest pain is due to angina from coronary artery disease. to be medically managed for now with medications. Activity: As commented below Activity Comment: please avoid strenuous activities; light activites are fine Driving/Machine Use: No limitations Non-emergency contact: Primary Care Provider and Windlasser Call non-emergency contact if: you have any medication questions, your symptoms worsen, your pain is not controlled, your pain is worsening, your pain is unusual for you and your pain is concerning for you Follow-up/Referrals: Ramakrishna Hensley MD [Physician] - 11/11/19 10:15 am (Please, follow up with Dr. Hensley on SundayNovember 11 at 10:15 am. *THIS APPOINTMENT WILL BE AT THE [place] OFFICE. If you need to change this appointment, call the office at [phone].) Josue Romeo MD [Primary Care Provider] - 11/07/19 11:30 am (Please, follow up with Dr. Romeo on SundayNovember 07 at 11:30 am. *If you need to change this appointment, call the office at [phone].) Diet: Carb Count or DM1 and Heart Healthy Addtl Attending Provider Instructions: You were seen for ongoing chest pain that necessitated use of nitroglycerin at home. After admission we tested the blood work for your heart (troponins) and these were NORMAL indicating NO evidence of heart attack. Your heart monitoring was normal. Your echocardiogram showed good heart function and there were no changes from your prior echocardiogram. You were seen by Dr Cuellar, cardiology (he is a partner of Dr Hensley), and he recommended that you increase your ranexa to 1000mg twice a day. Additional increases can be done as an outpatient. Follow-up - 1. see your family doctor within a week 2. see Dr Hensley as scheduled Return to [facility] if - * you have to use 2 or more nitroglycerin tablets at once for chest pain * you have worsening shortness of breath * you have fevers over 100.5 degrees * you have any other concerns Pending Studies at Discharge: No Stand-Alone Forms: My [facility], Smoking Cessation Medications and DC Order Prescriptions: New ranolazine 1,000 mg tablet extended release 12 hr 1,000 mg PO BID Qty: 60 RF: 5 Continued nitroglycerin 0.4 mg/hr patch 24 hour 1 patch TD DAILY Qty: 30 RF: 3 terazosin 1 mg capsule 1 mg PO HS Qty: 90 RF: 3 (DME) OneTouch Ultra Blue Test Strip strip See Dose Instructions .ROUTE .MEDSUPPLY Qty: 3 RF: 3 (DME) lancets [OneTouch UltraSoft Lancets] [facility] See Dose Instructions .ROUTE .MEDSUPPLY Qty: 100 RF: 5 insulin aspart U-100 100 unit/mL solution See Rx Instructions .ROUTE .COMPLEX RF: 0 atorvastatin 80 mg tablet 80 mg PO HS RF: 0 citalopram 10 mg tablet 10 mg PO QAM RF: 0 aspirin 81 mg Tablet,Delayed Release (Dr/Ec) 81 mg PO QAM RF: 0 amlodipine 10 mg tablet 10 mg PO QAM RF: 0 pantoprazole 40 mg tablet,delayed release (DR/EC) 40 mg PO QAM RF: 0 losartan 100 mg tablet 100 mg PO HS RF: 0 loratadine 10 mg tablet 10 mg PO HS RF: 0 prasugrel 10 mg tablet 10 mg PO QAM RF: 0 nitroglycerin 0.4 mg tablet, sublingual 0.4 mg SL Q5M PRN (Reason: Chest Pain) Qty: 1 RF: 0 No Action magnesium oxide 400 mg (241.3 mg magnesium) tablet 400 mg PO .COMPLEX RF: 0 carvedilol 12.5 mg tablet 12.5 mg PO BID Qty: 60 RF: 5 Discharge Orders: Discharge Order (Routine); Ordered 10/31/19 Ordered By: Neptali Robertson/Other Patient Handouts: Diabetes Insulin Pump Ch, Ranolazine Oral tablet extended-release Admission Data Admit Date/Time: 10/30/19 10:59 Attending Provider: Neptali Guzman Admit Provider: Renetta Decker Primary Care Provider: Josue Romeo Other Providers: Renetta Decker ; Seth Cuellar Other Interventions: Discharge Summary Assessment (RN) Last Done: 10/31/19 12:47 DC Date/Time DO NOT enter until pt leaves facility: 10/31/19 13:05
--- NOTE | 2019-10-31 13:34 | Cardiology Progress Note ---
Date of Service October 31, 2019 Assessment & Plan (1) Chest pain, exertional: He has a long history of exertional angina. While his symptoms have worsened recently, there has not been evidence of an acute coronary syndrome. We had a long discussion regarding the best options moving forward. We did discuss medical therapy and on a trial of a higher dose of Ranexa he seems to be doing well. Did discuss the option of additional coronary angiography and possible intervention. However, given his improvement in symptoms in the absence of any objective unstable or acute coronary syndrome it would seem reasonable to discharge him for trial of medications in the outpatient setting. We did discuss the option of coronary angiography if he is not satisfied with the medical therapy. He has an upcoming appointment in 2 weeks. Was asked to contact our office for additional questions or concerns prior to that appointment. Subjective This more the patient claims to be feeling well. He was ambulatory around the king several times without his typical angina. Denies dizziness, lightheadedness or other symptoms associated with a higher dose of Ranexa. Review of Systems Review of Systems: Per HPI Physical Exam Physical Exam: The patient is alert and oriented. Mood and affect appeared normal. He answered all questions appropriately. HEENT: Pupils are equal and reactive to light and accommodation. Extraocular movements are intact. The sclerae are anicteric. Tim complexion Neuro: Cranial nerves intact Lungs: Clear to auscultation bilaterally. He has good air movement without use of accessory muscles. No rales wheezes or rhonchi. Cardiac: Heart demonstrates a regular rate and rhythm. Normal S1 and S2. No murmurs on examination. Pulses: The patient has palpable radial pulses bilaterally but the left is fairly faint relative to the right. He has a normal right femoral pulse without bruit. Extremities: There was no evidence of hypoperfusion. There is no cyanosis or clubbing. There is no edema. Skin: I did not appreciate any rashes on examination today. Results & Data Vital Signs (Past 12 Hours) Vital Signs Temp Pulse Resp BP Pulse Ox 10/31/19 12:47 36.8 C 58 L 19 125/62 93 10/31/19 11:28 36.8 C 58 L 19 125/62 93 10/31/19 07:11 36.9 C 54 L 19 142/68 H 97 10/31/19 03:51 36.7 C 48 L 18 130/64 98 Laboratory Results Abnormal Lab Results 10/30/19 10/30/19 10/30/19 15:36 16:29 20:24 WBC RBC Hgb Hct MCV MCH MCHC RDW Std Deviation RDW Coeff of Shadia Plt Count MPV Immature Gran % (Auto) Neut % (Auto) Lymph % (Auto) Eddy % (Auto) Eos % (Auto) Baso % (Auto) Immature Gran # (Auto) Neut # (Auto) Lymph # (Auto) Eddy # (Auto) Eos # (Auto) Baso # (Auto) Sodium Potassium Chloride Carbon Dioxide Anion Gap BUN Creatinine Est Cr Clr Drug Dosing Est GFR ( Amer) Est GFR (Non-Af Amer) BUN/Creatinine Ratio Glucose POC Glucose 84 43 L* Calcium Troponin I < 0.015 NT-Pro-B Natriuret Pep 203 10/30/19 10/30/19 10/30/19 20:40 20:57 21:12 WBC RBC Hgb Hct MCV MCH MCHC RDW Std Deviation RDW Coeff of Shadia Plt Count MPV Immature Gran % (Auto) Neut % (Auto) Lymph % (Auto) Eddy % (Auto) Eos % (Auto) Baso % (Auto) Immature Gran # (Auto) Neut # (Auto) Lymph # (Auto) Eddy # (Auto) Eos # (Auto) Baso # (Auto) Sodium Potassium Chloride Carbon Dioxide Anion Gap BUN Creatinine Est Cr Clr Drug Dosing Est GFR ( Amer) Est GFR (Non-Af Amer) BUN/Creatinine Ratio Glucose POC Glucose 46 L* 63 L* 85 Calcium Troponin I NT-Pro-B Natriuret Pep 10/30/19 10/30/19 10/31/19 22:27 23:25 04:10 WBC RBC Hgb Hct MCV MCH MCHC RDW Std Deviation RDW Coeff of Shadia Plt Count MPV Immature Gran % (Auto) Neut % (Auto) Lymph % (Auto) Eddy % (Auto) Eos % (Auto) Baso % (Auto) Immature Gran # (Auto) Neut # (Auto) Lymph # (Auto) Eddy # (Auto) Eos # (Auto) Baso # (Auto) Sodium Potassium Chloride Carbon Dioxide Anion Gap BUN Creatinine Est Cr Clr Drug Dosing Est GFR ( Amer) Est GFR (Non-Af Amer) BUN/Creatinine Ratio Glucose POC Glucose 314 H* 193 H Calcium Troponin I < 0.015 NT-Pro-B Natriuret Pep 10/31/19 10/31/19 10/31/19 06:28 06:28 07:28 WBC 7.26 RBC 4.01 L Hgb 12.4 L Hct 37.2 L MCV 92.8 MCH 30.9 MCHC 33.3 RDW Std Deviation 43.5 RDW Coeff of Shadia 12.8 Plt Count 214 MPV 9.0 Immature Gran % (Auto) 0.1 Neut % (Auto) 62.6 Lymph % (Auto) 21.9 Eddy % (Auto) 9.9 Eos % (Auto) 4.7 Baso % (Auto) 0.8 Immature Gran # (Auto) 0.01 Neut # (Auto) 4.54 Lymph # (Auto) 1.59 Eddy # (Auto) 0.72 H Eos # (Auto) 0.34 Baso # (Auto) 0.06 Sodium 138 Potassium 4.6 Chloride 108 H Carbon Dioxide 30 Anion Gap 0 L BUN 14 Creatinine 1.04 Est Cr Clr Drug Dosing 64.9 Est GFR ( Amer) 86.3 Est GFR (Non-Af Amer) 74.5 BUN/Creatinine Ratio 13.3 Glucose 184 H POC Glucose 176 H Calcium 8.8 Troponin I NT-Pro-B Natriuret Pep 10/31/19 11:15 WBC RBC Hgb Hct MCV MCH MCHC RDW Std Deviation RDW Coeff of Shadia Plt Count MPV Immature Gran % (Auto) Neut % (Auto) Lymph % (Auto) Eddy % (Auto) Eos % (Auto) Baso % (Auto) Immature Gran # (Auto) Neut # (Auto) Lymph # (Auto) Eddy # (Auto) Eos # (Auto) Baso # (Auto) Sodium Potassium Chloride Carbon Dioxide Anion Gap BUN Creatinine Est Cr Clr Drug Dosing Est GFR ( Amer) Est GFR (Non-Af Amer) BUN/Creatinine Ratio Glucose POC Glucose 266 H Calcium Troponin I NT-Pro-B Natriuret Pep PG Care Time/CCT Total # of Minutes Spent Total Time Spent with Patient: Total time spent is greater than 50% in coordination of care (as documented) at patient's floor/unit and/or counseling patient:
--- NOTE | 2019-11-03 10:46 | XCELERA ---
[id number] [id number]
== END 2019-10-31 13:05 | disposition home or self-care (01) ==
LOC: 2S 08:27 → ED 08:27 → SUATTDRO 10:59 → 2S 11:59

== ENCOUNTER 2020-06-08 23:10 | Inpatient (IN) ==
[2020-06-08] MEDS ORDERED: NITROGLYCERIN 2% OINTMENT 30GM TUBE EXT ONE (23:20)
[2020-06-08 23:46] LABS: Basophils # (auto) 0.06 K/uL (0-0.2); Basophils % (auto) 0.7 %; Eosinophils # (auto) 0.47 K/uL (0-0.5); Eosinophils % (auto) 5.7 %; Hematocrit (blood only) 34.9 % (42-52); Hemoglobin 12.2 g/dL (14.0-18.0); Immature Granulocytes # (auto) 0.02 K/uL (0.00-0.02); Immature Granulocytes % (auto) 0.2 %; Lymphocytes % (auto) 23.2 %; Mean Corpuscular Hemoglobin 31.4 pg (25-34); Mean Corpuscular Volume 89.9 fL (80-100); Mean Platelet Volume 8.9 fL (7.4-10.4); Monocytes # (auto) 0.99 K/uL (0.11-0.59); Monocytes % (auto) 12.1 %; Neutrophils # (auto) 4.74 K/uL (1.4-6.5); Neutrophils % (auto) 58.1 %; Platelet Count 223 K/uL (130-400); RDW Standard Deviation 42.5 fL (36.4-46.3); Red Blood Count 3.88 M/uL (4.7-6.1); White Blood Count 8.18 K/uL (4.8-10.8)
[2020-06-08 23:58] LABS: Partial Thromboplastin Ratio 0.9; Partial Thromboplastin Time 26.1 Seconds (21.0-31.0)
[2020-06-09 00:03] LABS: Alanine Aminotransferase 21 U/L (12-78); Albumin Level 3.3 gm/dl (3.4-5.0); Aspartate Aminotransferase 17 U/L (15-37); BUN Creatinine Ratio 18.4 (10-20); Blood Urea Nitrogen 23 mg/dl (7-18); Calcium 8.5 mg/dl (8.5-10.1); Carbon Dioxide 27 mmol/L (21-32); Chloride 107 mmol/L (98-107); Creatinine Clr Calc Pharmacy 54.7 ml/min; Est GFR (African American) 69.1; Est GFR (Non-African American) 59.6; Glucose 236 mg/dl (70-99); Lipase 86 U/L (73-393); Magnesium 2.2 mg/dl (1.8-2.4); Potassium 4.1 mmol/L (3.5-5.1); Sodium 138 mmol/L (136-145)
[2020-06-09 00:14] LABS: Albumin Globulin Ratio 0.9 (0.9-2); Alkaline Phosphatase 54 U/L (45-117); Bilirubin,Total 0.4 mg/dl (0.2-1); Globulin 3.6 gm/dl (2.5-4.0); NT Pro B Type Natriuretic Pept 228 pg/ml (0-900); Total Protein 6.9 gm/dl (6.4-8.2); Troponin I < 0.015 ng/ml (0-0.045)
[2020-06-09 00:26] LABS: T4 Free Thyroxine 0.89 ng/dl (0.8-1.6)
[2020-06-09 01:07] LABS: Appearance Urine Clear (Clear); Bilirubin Urine Negative (Negative); Blood Urine Negative (Negative); Color Urine Yellow; Glucose Urine UA 2+ (Negative); Ketones Urine Negative (Negative); Leukocyte Esterase Urine Negative (Negative); Nitrite Urine Negative (Negative); Protein Urine Negative (Negative); Urobilinogen Urine Negative (Negative); pH Urine 6.5 (4.5-7.5)
--- NOTE | 2020-06-09 01:21 | History & Physical Report ---
Date of Service June 09, 2020 Assessment & Plan (1) Unstable angina: Unstable angina/three-vessel CAD/hypertension/stented coronary artery- The patient will be admitted to telemetry for serial cardiac enzymes, serial EKG's, cardiac rhythm monitoring and a 2-D echocardiogram with Dopplers. Continue aspirin 81 mg daily, amlodipine 10 mg daily, carvedilol 12.5 mg p.o. twice daily, losartan 100 mg p.o. daily, nitroglycerin 0.6 mg/h transdermal 24- hour patch, prasugrel 10 mg daily and ranolazine 1000 mg extended release every 12 hours. Add heparin low-dose per protocol without bolus. Consult his occupational therapy technician Dr. Hensley. Present on Admission?: Yes (2) 3-vessel CAD: See above Present on Admission?: Yes (3) Hypercholesterolemia: Continue atorvastatin 80 mg p.o. at bedtime. Check a fasting lipid panel Present on Admission?: Yes (4) DM I (diabetes mellitus, type I): Continue insulin pump, with patient to determine coverages and notify nursing Present on Admission?: Yes (5) GERD (gastroesophageal reflux disease): Continue pantoprazole 40 mg every morning Present on Admission?: Yes (6) Long-term insulin use: See above Present on Admission?: Yes (7) Benign essential HTN: See above Present on Admission?: Yes (8) Stented coronary artery: See above Present on Admission?: Yes History of Present Illness Chief Complaint: The patient presents to the emergency department with recurrent substernal chest pain, that began about 1 to 2 hours prior to arrival, that required a total of 4 sublingual nitroglycerin for relief. Primary Care Provider: Josue Romeo MD The patient is a 64-year-old male with a past medical history including hypercholesterolemia, diabetes mellitus, GERD, exertional chest pain, three- vessel CAD, adjustment disorder, history of CABG, elevated PSA, diabetes mellitus type 1, hypertension and stented coronary artery. He reports that during the middle of last week, about 6 days ago, he had 2 days where he had back to back chest discomfort that was relieved by a single sublingual nitroglycerin. He had an additional episode 3 days ago that was relieved by 2 sublingual nitroglycerin. Tonight's episode of chest discomfort awoke him from sleep, did not get better with 2 sublingual nitroglycerin of his own, and did finally resolve with additional 2 siblings nitroglycerin in route to the ED via EMS. Allergies Allergy/AdvReac Type Severity Reaction Status Date / Time clopidogrel Allergy Unknown HIVES Verified 06/08/20 23:40 terbinafine Allergy Unknown HIVES Verified 06/08/20 23:40 lisinopril Allergy Unknown Verified 06/08/20 23:40 Home Medications Home Medications Medication Instructions Recorded Confirmed Type lancets #100 ea 05/27/19 05/12/20 Rx terazosin 1 mg capsule 1 mg PO HS #90 cap 10/20/19 06/08/20 Rx blood sugar diagnostic #3 box 10/29/19 05/12/20 Rx amlodipine 10 mg PO QAM 10/30/19 06/08/20 History aspirin 81 mg PO QAM 10/30/19 06/08/20 History atorvastatin 80 mg PO HS 10/30/19 06/08/20 History citalopram 10 mg PO QAM 10/30/19 06/08/20 History loratadine 10 mg PO HS 10/30/19 06/08/20 History losartan 100 mg PO HS 10/30/19 06/08/20 History pantoprazole 40 mg PO QAM 10/30/19 06/08/20 History prasugrel 10 mg PO QAM 10/30/19 06/08/20 History nitroglycerin 0.4 mg SL Q5M PRN #1 btl 10/31/19 06/08/20 Rx magnesium oxide 400 mg (241.3 mg 400 mg PO .COMPLEX tab 11/04/19 06/08/20 History magnesium) tablet insulin aspart U-100 100 unit/mL See Rx Instructions .ROUTE 01/02/20 06/08/20 Rx subcutaneous solution .COMPLEX #70 ml ranolazine 1,000 mg 1,000 mg PO BID #180 tab 04/22/20 06/08/20 Rx tablet,extended release,12 hr carvedilol 12.5 mg tablet 12.5 mg PO BID #60 tab 04/30/20 06/08/20 Rx nitroglycerin 0.6 mg/hr 1 patch TD DAILY #90 ea 05/12/20 06/08/20 Rx transdermal 24 hour patch Past Med/Surg History Medical History Benign essential HTN CAD (coronary artery disease) DM I (diabetes mellitus, type I) Elevated PSA Exertional angina Hypercholesterolemia (Acute) Long-term insulin use Osteoarthritis Surgical History H/O coronary artery bypass surgery H/O sinus surgery History of coronary artery stent placement Hx of cholecystectomy Stented coronary artery (Resolved) Social History Preferred Language: Serbian Communication Ability: Effective Plant 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 Required: No Beliefs That Will Affect Care: None marital status: Current Living Situation: Spouse current occupational status: retired 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[employer], 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 Other Information That Helps Us Care for You: No Feels Safe at Home: Yes Safety Concerns: Feels Safe At This Time Smoking Status: Never smoker Second Hand Exposure: No ; Hx Alcohol Use: No Hx Substance Use: No Childhood Exposure to Second-Hand Smoke: No caffeine: Yes (coffee) during the past year weight has: remained stable Dental Care, Regularly: Yes Physical Activity Frequency: 5-6 Times per Week Seatbelt Use: always Sunscreen Use: No Do you think of yourself as: straight/heterosexual Review of Systems Review of Systems: The patient denies palpitations, cough, lower extremity swelling, sore throat, fevers, chills, sweats, weight change, fatigue, nausea, vomiting, diarrhea , constipation, abdominal pain, pelvic pain, blood in urine or stool, dysuria, urinary frequency or urgency, lightheadedness, dizziness, headache, memory loss, loss of consciousness, rash, abnormal bruising or bleeding, imbalance, focal or generalized weakness, numbness or tingling in arms or legs, generalized arthralgias or myalgias, back or neck pain, or night sweats. The review of systems is otherwise negative other than for that already noted above, and at least 10 systems have been reviewed. Physical Exam Physical Exam: The patient is awake, alert and oriented 3, well developed and well nourished, normocephalic and atraumatic, lying in bed and in no acute distress. HEENT--PERRL, EOMI, mucous membranes and oropharynx normal. Neck--supple. No JVD. No bruits. Thyroid normal, trachea midline, no adenopathy. Heart--normal S1 and S2. No murmurs, rubs or gallops. Lungs--clear bilaterally, no respiratory distress, no accessory muscle use. Abdomen--normal bowel sounds and soft. Nontender. Nondistended. Extremities--no cyanosis or clubbing. No edema. There are good distal pulses b/l. Dermatologic--normal skin turgor, normal color, no abnormal lymph nodes, no rash. Neurologic--cranial nerves II through XII grossly intact. Rheumatologic--normal range of motion. Psychiatric--normal affect. Results & Data Results & Data ([facility]) Vital Signs (Past 12 Hours) Vital Signs Temp Pulse Pulse Resp BP BP Pulse Ox 06/09/20 00:31 53 L 16 120/53 L 94 06/08/20 23:14 98.2 F 54 L 18 148/60 H 95 Laboratory Results Laboratory Results WBC 8.18 K/uL (4.8-10.8) 06/08/20 23:30 RBC 3.88 M/uL (4.7-6.1) L 06/08/20 23:30 Hgb 12.2 g/dL (14.0-18.0) L 06/08/20 23:30 Hct 34.9 % (42-52) L 06/08/20 23:30 MCV 89.9 fL (80-100) 06/08/20 23:30 MCH 31.4 pg (25-34) 06/08/20 23:30 MCHC 35.0 g/dL (32-36) 06/08/20 23:30 RDW Std Deviation 42.5 fL (36.4-46.3) 06/08/20 23:30 RDW Coeff of Shadia 13.0 % (11.5-14.5) 06/08/20 23:30 Plt Count 223 K/uL (130-400) 06/08/20 23:30 MPV 8.9 fL (7.4-10.4) 06/08/20 23:30 Immature Gran % (Auto) 0.2 % 06/08/20 23:30 Neut % (Auto) 58.1 % 06/08/20 23:30 Lymph % (Auto) 23.2 % 06/08/20 23:30 [place] % (Auto) 12.1 % 06/08/20 23:30 Eos % (Auto) 5.7 % 06/08/20 23:30 Baso % (Auto) 0.7 % 06/08/20 23:30 Neut # (Auto) 4.74 K/uL (1.4-6.5) 06/08/20 23:30 Lymph # (Auto) 1.90 K/uL (1.2-3.4) 06/08/20 23:30 [place] # (Auto) 0.99 K/uL (0.11-0.59) H 06/08/20 23:30 Eos # (Auto) 0.47 K/uL (0-0.5) 06/08/20 23:30 Baso # (Auto) 0.06 K/uL (0-0.2) 06/08/20 23:30 Immature Gran # (Auto) 0.02 K/uL (0.00-0.02) 06/08/20 23:30 PT 11.0 Seconds (9.0-12.0) 06/08/20 23:30 INR 1.0 (0.9-1.1) 06/08/20 23:30 APTT 26.1 Seconds (21.0-31.0) 06/08/20 23:30 PTT Ratio 0.9 06/08/20 23:30 Sodium 138 mmol/L (136-145) 06/08/20 23:30 Potassium 4.1 mmol/L (3.5-5.1) 06/08/20 23:30 Chloride 107 mmol/L (98-107) 06/08/20 23:30 Carbon Dioxide 27 mmol/L (21-32) 06/08/20 23:30 Anion Gap 4.0 (3-11) 06/08/20 23:30 BUN 23 mg/dl (7-18) H 06/08/20 23:30 Creatinine 1.25 mg/dl (0.6-1.4) 06/08/20 23:30 Est Cr Clr Drug Dosing 54.7 ml/min 06/08/20 23:30 Est GFR ( Amer) 69.1 06/08/20 23:30 Est GFR (Non-Af Amer) 59.6 06/08/20 23:30 BUN/Creatinine Ratio 18.4 (10-20) 06/08/20 23:30 Glucose 236 mg/dl (70-99) H 06/08/20 23:30 POC Glucose 244 mg/dl (70-99) H 06/09/20 02:05 Calcium 8.5 mg/dl (8.5-10.1) 06/08/20 23:30 Magnesium 2.2 mg/dl (1.8-2.4) 06/08/20 23:30 Total Bilirubin 0.4 mg/dl (0.2-1) 06/08/20 23:30 AST 17 U/L (15-37) 06/08/20 23:30 ALT 21 U/L (12-78) 06/08/20 23:30 Alkaline Phosphatase 54 U/L (45-117) 06/08/20 23:30 Troponin I < 0.015 ng/ml (0-0.045) 06/08/20 23:30 NT-Pro-B Natriuret Pep 228 pg/ml (0-900) 06/08/20 23:30 Total Protein 6.9 gm/dl (6.4-8.2) 06/08/20 23:30 Albumin 3.3 gm/dl (3.4-5.0) L 06/08/20 23:30 Globulin 3.6 gm/dl (2.5-4.0) 06/08/20 23:30 Albumin/Globulin Ratio 0.9 (0.9-2) 06/08/20 23:30 Lipase 86 U/L (73-393) 06/08/20 23:30 TSH 7.280 uIu/ml (0.300-4.500) H 06/08/20 23:30 Free T4 0.89 ng/dl (0.8-1.6) 06/08/20 23:30 Urine Color Yellow 06/09/20 00:50 Urine Appearance Clear (Clear) 06/09/20 00:50 Urine pH 6.5 (4.5-7.5) 06/09/20 00:50 Ur Specific [place] 1.020 (1.000-1.030) 06/09/20 00:50 Urine Protein Negative (Negative) 06/09/20 00:50 Urine Glucose (UA) 2+ (Negative) H 06/09/20 00:50 Urine Ketones Negative (Negative) 06/09/20 00:50 Urine Blood Negative (Negative) 06/09/20 00:50 Urine Nitrite Negative (Negative) 06/09/20 00:50 Urine Bilirubin Negative (Negative) 06/09/20 00:50 Urine Urobilinogen Negative (Negative) 06/09/20 00:50 Ur Leukocyte Esterase Negative (Negative) 06/09/20 00:50 Code Status & VTE Plan Code Status Full code VTE Prophylaxis Plan VTE Prophylaxis will be ordered: Yes PG Care Time/CCT Total # of Minutes Spent Total Time Spent with Patient: Total time spent is greater than 50% in coordination of care (as documented) at patient's floor/unit and/or counseling patient: Coding Level of Care Code 37563 Initial Inpt Care Lvl 3 Diagnoses Unstable angina I20.0 3-vessel CAD I25.10 Hypercholesterolemia E78.00 DM I (diabetes mellitus, type I) E10.9 GERD (gastroesophageal reflux disease) K21.9 Esophagitis presence: esophagitis presence not specified Long-term insulin use Z79.4 Benign essential HTN I10 Stented coronary artery Z95.5 (1) GERD (gastroesophageal reflux disease) Esophagitis presence: esophagitis presence not specified Qualified Code(s): K21.9 - Gastro-esophageal reflux disease without esophagitis
--- NOTE | 2020-06-09 01:43 | Emergency Department Note ---
History of Present Illness General Chief complaint: Chest Pain Stated complaint: CHEST PAIN Time Seen by Provider: 06/08/20 23:15 History of Present Illness Maximum Pain Intensity: 0 This is a 64-year-old male presenting to the emergency department for evaluation of chest pain symptoms that began 1 to 2 hours prior to arrival. The patient states that he was sleeping, and awoke with his pain. He describes it as a central chest pressure that does not radiate. He does have a history of significant cardiac disease including CABG and stenting. The patient states that his symptoms felt identical to previous heart issues, and he did take 2 nitroglycerin at home which completely relieved his symptoms. He contacted EMS, and received 2 additional nitroglycerin in route. The patient has been having chest pain symptoms for the past few days with exertion, and improving with rest. Tonight is his first episode of chest pain at rest. Upon arrival to the ER he is currently without any discomfort. He rates his current pain a 0/10. He does not report any recent medication changes and does take aspirin on a daily basis. Home Medications Home Medications Medication Instructions Recorded Confirmed Type lancets #100 ea 05/27/19 05/12/20 Rx terazosin 1 mg capsule 1 mg PO HS #90 cap 10/20/19 06/08/20 Rx blood sugar diagnostic #3 box 10/29/19 05/12/20 Rx amlodipine 10 mg PO QAM 10/30/19 06/08/20 History aspirin 81 mg PO QAM 10/30/19 06/08/20 History atorvastatin 80 mg PO HS 10/30/19 06/08/20 History citalopram 10 mg PO QAM 10/30/19 06/08/20 History loratadine 10 mg PO HS 10/30/19 06/08/20 History losartan 100 mg PO HS 10/30/19 06/08/20 History pantoprazole 40 mg PO QAM 10/30/19 06/08/20 History prasugrel 10 mg PO QAM 10/30/19 06/08/20 History nitroglycerin 0.4 mg SL Q5M PRN #1 btl 10/31/19 06/08/20 Rx magnesium oxide 400 mg (241.3 mg 400 mg PO .COMPLEX tab 11/04/19 06/08/20 History magnesium) tablet insulin aspart U-100 100 unit/mL See Rx Instructions .ROUTE 01/02/20 06/08/20 Rx subcutaneous solution .COMPLEX #70 ml ranolazine 1,000 mg 1,000 mg PO BID #180 tab 04/22/20 06/08/20 Rx tablet,extended release,12 hr carvedilol 12.5 mg tablet 12.5 mg PO BID #60 tab 04/30/20 06/08/20 Rx nitroglycerin 0.6 mg/hr 1 patch TD DAILY #90 ea 05/12/20 06/08/20 Rx transdermal 24 hour patch Allergies Allergy/AdvReac Type Severity Reaction Status Date / Time clopidogrel Allergy Unknown HIVES Verified 06/08/20 23:40 terbinafine Allergy Unknown HIVES Verified 06/08/20 23:40 lisinopril Allergy Unknown Verified 06/08/20 23:40 Past Med/Surg History Medical History Benign essential HTN CAD (coronary artery disease) DM I (diabetes mellitus, type I) Elevated PSA Exertional angina Hypercholesterolemia (Acute) Long-term insulin use Osteoarthritis Surgical History H/O coronary artery bypass surgery H/O sinus surgery History of coronary artery stent placement Hx of cholecystectomy Stented coronary artery (Resolved) Social History Preferred Language: Amharic Communication Ability: Effective [facility] [employer] Required: No Beliefs That Will Affect Care: None marital status: Current Living Situation: Spouse current occupational status: retired 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[employer], 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 Feels Safe at Home: Yes Smoking Status: Never smoker Second Hand Exposure: No ; Hx Alcohol Use: No Hx Substance Use: No Childhood Exposure to Second-Hand Smoke: No caffeine: Yes (coffee) during the past year weight has: remained stable Dental Care, Regularly: Yes Physical Activity Frequency: 5-6 Times per Week Seatbelt Use: always Sunscreen Use: No Do you think of yourself as: straight/heterosexual Review of Systems A total of 10 systems reviewed and were otherwise negative Physical Exam Vital Signs Vital Signs - 24 hr 06/08/20 23:14 06/09/20 00:31 06/09/20 01:30 Temperature 36.8 C Temperature Source Oral Pulse Rate 54 L Pulse Rate [Right Finger] 53 L 50 L Pulse Rhythm [Right Finger] Regular Respiratory Rate 18 16 16 Respiratory Effort / Characteristics Non-Labored Respiratory Depth Normal Normal Normal Blood Pressure 148/60 H Blood Pressure [Right Arm] 120/53 L 122/49 L Blood Pressure Mean 89 Blood Pressure Mean [Right Arm] 75 73 Blood Pressure Position Lying Blood Pressure Position [Right Arm] Lying Lying Pulse Oximetry 95 94 93 Oxygen Delivery Method Room Air Room Air Room Air Sepsis Recent Fever Within 48 Hours No Sepsis New/Unexplained Change in Mental Status No Sepsis Action Taken by Nursing No Action Required 06/09/20 01:38 Temperature Temperature Source Pulse Rate 55 L Pulse Rate [Right Finger] Pulse Rhythm [Right Finger] Respiratory Rate 16 Respiratory Effort / Characteristics Respiratory Depth Blood Pressure 125/58 L Blood Pressure [Right Arm] Blood Pressure Mean Blood Pressure Mean [Right Arm] Blood Pressure Position Blood Pressure Position [Right Arm] Pulse Oximetry 93 Oxygen Delivery Method Room Air Sepsis Recent Fever Within 48 Hours Sepsis New/Unexplained Change in Mental Status Sepsis Action Taken by Nursing VITALS: Vitals are noted on the nurse's note and reviewed by myself. Vital signs stable. GENERAL: Well-developed, well-nourished, white male, who is in no acute distress and resting comfortably. Patient is cooperative with the examination. HEAD: Normocephalic atraumatic. EYES: Pupils equal round and reactive to light and accommodation. Conjunctivae without injection, sclerae without icterus. Extraocular movements intact. NECK: Supple without nuchal rigidity. No lymphadenopathy. No thyromegaly. Cervical spine is nontender. HEART: Regular rate and rhythm without murmurs gallops or rubs. LUNGS: Clear to auscultation bilaterally without wheezes, rales or rhonchi. No retractions or accessory muscle use. ABDOMEN: Positive normal bowel sounds x 4. Soft, nontender, without masses or organomegaly. No guarding or rebound tenderness. MUSCULOSKELETAL: No muscle atrophy, erythema, or edema noted. Full range of motion in all extremities. NEURO: Patient was alert and oriented to person place and time. CN II through XII grossly intact. No focal neurological deficits. Deep tendon reflexes 2+ thr oughout. SKIN: The skin was without rashes, erythema, edema, or bruising. Capillary refill less than 2 seconds. Course Administered Medications Discontinued Medications Nitroglycerin (Nitro-Bid 2%) 1 inch EXT NOW ONE Stop: 06/08/20 23:21 Last Admin: 06/08/20 23:46 Dose: 1 inch Documented by: [id number] Medical Decision Making Differential Diagnosis Differential diagnosis includes, but is not limited to: Myocardial infarction, dysrhythmia, pericarditis, pneumothorax, aortic aneurysm/dissection, DVT/PE, anxiety, GERD, PUD, electrolyte imbalance, thyroid disorder, pneumonia, bronchitis, pancreatitis, and others Laboratory Data Result diagrams: 06/08/20 23:30 06/08/20 23:30 Lab Results 06/08/20 06/08/20 06/08/20 Range/Units 23:30 23:30 23:30 WBC 8.18 (4.8-10.8) K/uL RBC 3.88 L (4.7-6.1) M/uL Hgb 12.2 L (14.0-18.0) g/dL Hct 34.9 L (42-52) % MCV 89.9 (80-100) fL MCH 31.4 (25-34) pg MCHC 35.0 (32-36) g/dL RDW Std Deviation 42.5 (36.4-46.3) fL RDW Coeff of Shadia 13.0 (11.5-14.5) % Plt Count 223 (130-400) K/uL MPV 8.9 (7.4-10.4) fL Immature Gran % (Auto) 0.2 % Neut % (Auto) 58.1 % Lymph % (Auto) 23.2 % [place] % (Auto) 12.1 % Eos % (Auto) 5.7 % Baso % (Auto) 0.7 % Neut # (Auto) 4.74 (1.4-6.5) K/uL Lymph # (Auto) 1.90 (1.2-3.4) K/uL [place] # (Auto) 0.99 H (0.11-0.59) K/uL Eos # (Auto) 0.47 (0-0.5) K/uL Baso # (Auto) 0.06 (0-0.2) K/uL Immature Gran # (Auto) 0.02 (0.00-0.02) K/uL PT 11.0 (9.0-12.0) Seconds INR 1.0 (0.9-1.1) APTT 26.1 (21.0-31.0) Seconds PTT Ratio 0.9 Sodium 138 (136-145) mmol/L Potassium 4.1 (3.5-5.1) mmol/L Chloride 107 (98-107) mmol/L Carbon Dioxide 27 (21-32) mmol/L Anion Gap 4.0 (3-11) BUN 23 H (7-18) mg/dl Creatinine 1.25 (0.6-1.4) mg/dl Est Cr Clr Drug Dosing 54.7 ml/min Est GFR ( Amer) 69.1 Est GFR (Non-Af Amer) 59.6 BUN/Creatinine Ratio 18.4 (10-20) Glucose 236 H (70-99) mg/dl Calcium 8.5 (8.5-10.1) mg/dl Magnesium 2.2 (1.8-2.4) mg/dl Total Bilirubin 0.4 (0.2-1) mg/dl AST 17 (15-37) U/L ALT 21 (12-78) U/L Alkaline Phosphatase 54 (45-117) U/L Troponin I < 0.015 (0-0.045) ng/ml NT-Pro-B Natriuret Pep 228 (0-900) pg/ml Total Protein 6.9 (6.4-8.2) gm/dl Albumin 3.3 L (3.4-5.0) gm/dl Globulin 3.6 (2.5-4.0) gm/dl Albumin/Globulin Ratio 0.9 (0.9-2) Lipase 86 (73-393) U/L TSH 7.280 H (0.300-4.500) uIu/ml Free T4 0.89 (0.8-1.6) ng/dl Urine Color Urine Appearance (Clear) Urine pH (4.5-7.5) Ur Specific [place] (1.000-1.030) Urine Protein (Negative) Urine Glucose (UA) (Negative) Urine Ketones (Negative) Urine Blood (Negative) Urine Nitrite (Negative) Urine Bilirubin (Negative) Urine Urobilinogen (Negative) Ur Leukocyte Esterase (Negative) 06/09/20 Range/Units 00:50 WBC (4.8-10.8) K/uL RBC (4.7-6.1) M/uL Hgb (14.0-18.0) g/dL Hct (42-52) % MCV (80-100) fL MCH (25-34) pg MCHC (32-36) g/dL RDW Std Deviation (36.4-46.3) fL RDW Coeff of Shadia (11.5-14.5) % Plt Count (130-400) K/uL MPV (7.4-10.4) fL Immature Gran % (Auto) % Neut % (Auto) % Lymph % (Auto) % [place] % (Auto) % Eos % (Auto) % Baso % (Auto) % Neut # (Auto) (1.4-6.5) K/uL Lymph # (Auto) (1.2-3.4) K/uL [place] # (Auto) (0.11-0.59) K/uL Eos # (Auto) (0-0.5) K/uL Baso # (Auto) (0-0.2) K/uL Immature Gran # (Auto) (0.00-0.02) K/uL PT (9.0-12.0) Seconds INR (0.9-1.1) APTT (21.0-31.0) Seconds PTT Ratio Sodium (136-145) mmol/L Potassium (3.5-5.1) mmol/L Chloride (98-107) mmol/L Carbon Dioxide (21-32) mmol/L Anion Gap (3-11) BUN (7-18) mg/dl Creatinine (0.6-1.4) mg/dl Est Cr Clr Drug Dosing ml/min Est GFR ( Amer) Est GFR (Non-Af Amer) BUN/Creatinine Ratio (10-20) Glucose (70-99) mg/dl Calcium (8.5-10.1) mg/dl Magnesium (1.8-2.4) mg/dl Total Bilirubin (0.2-1) mg/dl AST (15-37) U/L ALT (12-78) U/L Alkaline Phosphatase (45-117) U/L Troponin I (0-0.045) ng/ml NT-Pro-B Natriuret Pep (0-900) pg/ml Total Protein (6.4-8.2) gm/dl Albumin (3.4-5.0) gm/dl Globulin (2.5-4.0) gm/dl Albumin/Globulin Ratio (0.9-2) Lipase (73-393) U/L TSH (0.300-4.500) uIu/ml Free T4 (0.8-1.6) ng/dl Urine Color Yellow Urine Appearance Clear (Clear) Urine pH 6.5 (4.5-7.5) Ur Specific [place] 1.020 (1.000-1.030) Urine Protein Negative (Negative) Urine Glucose (UA) 2+ H (Negative) Urine Ketones Negative (Negative) Urine Blood Negative (Negative) Urine Nitrite Negative (Negative) Urine Bilirubin Negative (Negative) Urine Urobilinogen Negative (Negative) Ur Leukocyte Esterase Negative (Negative) Blood Pressure Blood Pressure Findings: Normal blood pressure MDM Narrative Physical exam and history were performed. Nursing notes, EMR, and Medication List were personally reviewed. Patient appears to have chest pain at rest that is improved completely with nitroglycerin. He does have an extensive cardiac history and is diabetic. Patient's calculated heart score is at least 6, placing him in a moderate risk category. IV access was established and labs were obtained. EKG is as above without acute ST elevation. An order was placed for continuous cardiac monitoring. The monitor shows a rate of 55 with bradycardic rhythm. The patient's blood work is as above and was reviewed. He does not have a significantly elevated white blood cell count. He is mildly anemic at 12.2, however this is chronic. Lipase and transaminases are not diagnostic. Troponin x1 is negative. Overall the patient does not appear well for discharge home. He is considered at least moderate if not high risk for cardiac event. His symptoms do seem anginal. The case was discussed with the on-call hospitalist who agreed to evaluate the patient here in the ER. Please see their dictation for further patient course, plan, disposition. The chart was completed utilizing [employer] Voice Recognition Software. Grammatical errors, random word insertions, pronoun errors, and incomplete sentences are an occasional consequence of this system due to software limi tations, ambient noise, and hardware issues. Any formal questions or concerns about the content, text, or information contained within the body of this dictation should be directly addressed to the provider for clarification. . Impression & Plan Unstable angina, Chest pain at rest Discharge Plan Visit Data Chief Complaint: Chest Pain Stated Complaint: CHEST PAIN ED Provider: Luisa Bui ED Midlevel Provider: Nikolai Duncan Discharge Problem: Unstable angina, Chest pain at rest Discharge Instructions Interventions: ED Discharge Assessment Last Done: 06/09/20 01:38 Forms Stand Alone Forms: My [facility] [employer] Prescriptions Prescriptions: No Action terazosin 1 mg capsule 1 mg PO HS Qty: 90 RF: 3 (DME) OneTouch Ultra Blue Test Strip strip See Dose Instructions .ROUTE .MEDSUPPLY Qty: 3 RF: 3 insulin aspart U-100 100 unit/mL solution See Rx Instructions .ROUTE .COMPLEX Qty: 70 RF: 3 carvedilol 12.5 mg tablet 12.5 mg PO BID Qty: 60 RF: 5 (DME) lancets [OneTouch UltraSoft Lancets] misc See Dose Instructions .ROUTE .MEDSUPPLY Qty: 100 RF: 5 magnesium oxide 400 mg (241.3 mg magnesium) tablet 400 mg PO .COMPLEX RF: 0 nitroglycerin 0.6 mg/hr patch 24 hour 1 patch TD DAILY Qty: 90 RF: 3 ranolazine 1,000 mg tablet extended release 12 hr 1,000 mg PO BID Qty: 180 RF: 3 atorvastatin 80 mg tablet 80 mg PO HS RF: 0 citalopram 10 mg tablet 10 mg PO QAM RF: 0 aspirin 81 mg Tablet,Delayed Release (Dr/Ec) 81 mg PO QAM RF: 0 amlodipine 10 mg tablet 10 mg PO QAM RF: 0 pantoprazole 40 mg tablet,delayed release (DR/EC) 40 mg PO QAM RF: 0 losartan 100 mg tablet 100 mg PO HS RF: 0 loratadine 10 mg tablet 10 mg PO HS RF: 0 prasugrel 10 mg tablet 10 mg PO QAM RF: 0 nitroglycerin 0.4 mg tablet, sublingual 0.4 mg SL Q5M PRN (Reason: Chest Pain) Qty: 1 RF: 0 Referrals Referrals: Josue Romeo MD [Primary Care Provider] -
[2020-06-09] MEDS ORDERED: ACETAMINOPHEN 325 MG TAB PO PRN (01:59)
[2020-06-09] MEDS ORDERED: INSULIN ASPART PER UNIT SC SCH (01:59)
[2020-06-09] MEDS ORDERED: NITROGLYCERIN SL 0.4 MG/TAB TAB SL PRN ×2 (01:59)
[2020-06-09] MEDS ORDERED: ALUMINUM/MAGNESIUM SUSP 30 ML UDC PO PRN (01:59)
[2020-06-09] MEDS ORDERED: ONDANSETRON INJ 2 MG/ML 2 ML VIAL IV PRN (01:59)
[2020-06-09] MEDS ORDERED: MAGNESIUM HYDROXIDE SUSP 30 ML UDC PO PRN (01:59)
[2020-06-09] MEDS ORDERED: Heparin IV Low Dose *NO* Bolus IV SCH (01:59)
[2020-06-09] MEDS: HEPARIN SODIUM/DEXTROSE 25,000 UNITS/500 ML BAG IV SCH (02:49)
[2020-06-09] MEDS ORDERED: DEXTROSE 50% 50 ML SYRINGE IV PRN (03:15)
[2020-06-09] MEDS ORDERED: CARBOHYDRATES FOR HYPOGLYCEMIA PO PRN (03:15)
[2020-06-09] MEDS ORDERED: GLUCOSE 40% GEL 15 GM TUBE PO PRN (03:15)
[2020-06-09] MEDS ORDERED: GLUCAGON FOR INJ 1 MG VIAL SQ PRN (03:15)
[2020-06-09] MEDS ORDERED: GLUCOSE 10 TABS/TUBE PO PRN (03:15)
[2020-06-09] MEDS ORDERED: INSULIN ASPART 100 UNITS/ML VIAL SC PRN (03:15)
[2020-06-09] MEDS: PRASugrel TAB 10 MG TAB PO SCH (07:35)
[2020-06-09] MEDS: PANTOprazole 40 MG TAB PO SCH (07:35)
[2020-06-09] MEDS: CITALOPRAM 20 MG TAB PO SCH (07:35)
[2020-06-09] MEDS: AMLODIPINE BESYLATE 5 MG TAB PO SCH (07:35)
[2020-06-09] MEDS: RANOLAZINE 500 MG ER TAB PO SCH ×2 (07:35→20:34)
[2020-06-09] MEDS: ASPIRIN 81 MG ECTAB PO SCH (07:35)
[2020-06-09] MEDS: carvediloL 12.5 MG TAB PO SCH ×2 (07:35→20:33)
[2020-06-09] MEDS: NITROGLYCERIN 0.6 MG/HR PATCH TD SCH (07:36)
[2020-06-09] MEDS: NovoLOG INSULIN PUMP SCH ×4 (07:39→21:23)
[2020-06-09 07:46] LABS: INR 1.1 (0.9-1.1); Prothrombin Time 11.3 Seconds (9.0-12.0)
--- NOTE | 2020-06-09 07:55 | XRay Report ---
XR chest 1V portable CLINICAL HISTORY: Atypical chest pain COMPARISON STUDY: 10/30/2019 FINDINGS: There are postsurgical changes of a midline sternotomy. The heart is mildly enlarged. There is no failure. There is no focal pulmonary consolidation. There is minor left basilar atelectasis.[ IMPRESSION: No active disease in the chest. ACT 112: Negative or not required by law. Electronically signed by: Joey Jara M.D. 06/09/2020 7:54 AM
[2020-06-09 08:08] LABS: Albumin Level 3.3 gm/dl (3.4-5.0); BUN Creatinine Ratio 18.3 (10-20); Calcium 8.7 mg/dl (8.5-10.1); Est GFR (African American) 90.5; Est GFR (Non-African American) 78.1; Potassium 4.1 mmol/L (3.5-5.1)
[2020-06-09 08:09] LABS: Phosphorus 2.7 mg/dl (2.5-4.9)
--- NOTE | 2020-06-09 08:47 | Hospitalist Progress Note ---
Date of Service June 09, 2020 Assessment & Plan (1) Unstable angina: Unstable angina/three-vessel CAD/hypertension/stented coronary artery- This patient is had a favorable trend of his troponins. Cardiology does recommend additional heparin infusion and likely nuclear stress testing for alee luation of at risk myocardium Continue aspirin 81 mg daily, amlodipine 10 mg daily, carvedilol 12.5 mg p.o. twice daily, losartan 100 mg p.o. daily, nitroglycerin 0.6 mg/h transdermal 24- hour patch, prasugrel 10 mg daily and ranolazine 1000 mg extended release every 12 hours. 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 (2) 3-vessel CAD: See above (3) Hypercholesterolemia: Continue atorvastatin 80 mg p.o. at bedtime. (4) DM I (diabetes mellitus, type I): Continue insulin pump, with patient to determine coverages and notify nursing (5) GERD (gastroesophageal reflux disease): Continue pantoprazole 40 mg every morning (6) Long-term insulin use: See above (7) Benign essential HTN: See above (8) Stented coronary artery: See above Admission and Anticipated Discharge Date Admission Date: June 09, 2020 Subjective this pt has no further chest discomfort since presentation, he states that his discomfort did remind him of his initial cardiac event Review of Systems Review of Systems: No additional distress but does complain of some fatigue no headache, blurry or double vision no speech or swallowing issues no additional chest pain, pressure or palpitations no shortness of breath, cough or wheezes no abdominal pain, nausea or vomiting, diarrhea or constipation no dysuria, hematuria or frequency no focal joint pain or swelling no back pain, CVA tenderness or radicular pain no bruising, bleeding or rashes no focal signs of weakness or numbness or altered sensation no complaints or anxiety or depression. Physical Exam Physical Exam: The patient appeared well nourished and normally developed. Vital signs as documented. Head exam is normocephalic atraumatic no scleral icterus Neck is without JVD, thyromegaly, or carotid bruits. Lungs are clear to auscultation, no focal loss of breath sounds Cardiac exam, Rhythm is regular.. No murmurs, rubs or gallops. Abdominal exam reveals normal bowel sounds, soft non tender, no masses Extremities are nonedematous and both pedal pulses are normal. Neurologic exam is alert and oriented, no focal loss of strength or sensation Skin is without bruises or rashes Psychologically is without concerns for anxiety or depression Results & Data Results & Data ([facility]) Vital Signs (Past 12 Hours) Vital Signs Temp Pulse Pulse Resp BP BP Pulse Ox 06/09/20 08:05 98.1 F 52 L 19 152/62 H 95 06/09/20 03:52 97.3 F L 50 L 18 133/63 93 06/09/20 01:59 06/09/20 01:55 97.3 F L 56 L 16 156/65 H 94 06/09/20 01:38 55 L 16 125/58 L 93 06/09/20 01:30 50 L 16 122/49 L 93 06/09/20 00:31 53 L 16 120/53 L 94 06/09/20 00:00 52 L 06/08/20 23:14 98.2 F 54 L 18 148/60 H 95 Pulse Ox 06/09/20 08:05 06/09/20 03:52 06/09/20 01:59 94 06/09/20 01:55 06/09/20 01:38 06/09/20 01:30 06/09/20 00:31 06/09/20 00:00 06/08/20 23:14 PG Care Time/CCT Total # of Minutes Spent Total Time Spent with Patient: Total time spent is greater than 50% in coordination of care (as documented) at patient's floor/unit and/or counseling patient: Coding Level of Care Code 50024 Subseq Hosp Care Lvl 2 Diagnoses Unstable angina I20.0 3-vessel CAD I25.10 Hypercholesterolemia E78.00 DM I (diabetes mellitus, type I) E10.9 GERD (gastroesophageal reflux disease) K21.9 Esophagitis presence: esophagitis presence not specified Long-term insulin use Z79.4 Benign essential HTN I10 Stented coronary artery Z95.5 (1) GERD (gastroesophageal reflux disease) Esophagitis presence: esophagitis presence not specified Qualified Code(s): K21.9 - Gastro-esophageal reflux disease without esophagitis
[2020-06-09] MEDS ORDERED: MAGNESIUM OXIDE 400 MG TAB PO SCH (09:00)
[2020-06-09 09:26] LABS: Partial Thromboplastin Ratio 1.3; Partial Thromboplastin Time 36.2 Seconds (21.0-31.0)
[2020-06-09] MEDS ORDERED: HEPARIN IV BOLUS 4,500 UNITS in SYRINGE 0 ML IV ONE (11:15)
--- NOTE | 2020-06-09 11:22 | Cardiology Consultation ---
Date of Consultation June 09, 2020 Assessment & Plan (1) Chest pain at rest: Patient's symptoms are concerning for unstable angina. However, he had a fairly extended episode of symptoms without any elevation in his biomarkers. No other objective findings of ischemia. Based on his extensive coronary history and multiple prior interventions would seem reasonable to perform some risk stratification. I think cardiac perfusion imaging would be a reasonable choice. We can continue his heparin until tomorrow morning. I agree with continuation of his outpatient medical regimen which includes carvedilol, aspirin, prasugrel, Nitro-Patch and ranolazine. (2) Exertional angina: He has a longstanding history of exertional angina related to significant coronary disease. Overall this appears to be stable with the exception of his rest episode last evening. Continue his outpatient medical regimen and heparin as noted above (3) CAD (coronary artery disease): Patient's most recent coronary angiography was January of 2019. He was noted to have some small-vessel disease and nonobstructive disease in the remaining patent arteries. No intervention was performed. Will continue aggressive secondary prevention with dual anti-platelet therapy and high-dose atorvastatin. History of Present Illness Reason for Consultation: Chest pain Requesting Physician: Geetha Attending Physician: Pieter Pryor MD History of Present Illness The patient is 64-year-old gentleman with an extensive history of coronary disease having previously undergone both surgical and percutaneous re vascularization. Patient typically has some element of exertional chest discomfort. He limits his activity and can avoid symptoms. However, when doing more significant activity such as walking rapidly, at ascending stairs or carrying objects while walking he will have symptoms of chest discomfort. This often response to the discontinuation of activity or use of nitroglycerin. His pattern chest pain has not changed significantly in the recent past. Early this morning, the patient did wake up with chest discomfort. He states he had precordial chest discomfort with radiation to the right arm. He did not have radiation to the back, left arm or jaw. He states this felt similar to prior episodes of chest discomfort and angina. He took 2 nitroglycerin without complete resolution of his symptoms and contacted EMS for transport to the hospital. In route he was administered 2 more nitroglycerin tablets with resolution of his symptoms. He has not had any recurrence since being in the hospital. He believes the episode lasted 30-40 minutes in duration before he became pain-free. Patient denies recent symptoms of breathing difficulty. No orthopnea or paroxysmal nocturnal dyspnea. No recent episodes of palpitations. No dizziness or lightheadedness. No syncope. No increasing abdominal girth or lower extremity edema. He claims to be compliant with his medical therapy. Allergies Allergy/AdvReac Type Severity Reaction Status Date / Time clopidogrel Allergy Unknown HIVES Verified 06/08/20 23:40 terbinafine Allergy Unknown HIVES Verified 06/08/20 23:40 lisinopril Allergy Unknown Verified 06/08/20 23:40 Home Medications Home Medications Medication Instructions Recorded Confirmed Type lancets #100 ea 05/27/19 05/12/20 Rx terazosin 1 mg capsule 1 mg PO HS #90 cap 10/20/19 06/08/20 Rx blood sugar diagnostic #3 box 10/29/19 05/12/20 Rx amlodipine 10 mg PO QAM 10/30/19 06/08/20 History aspirin 81 mg PO QAM 10/30/19 06/08/20 History atorvastatin 80 mg PO HS 10/30/19 06/08/20 History citalopram 10 mg PO QAM 10/30/19 06/08/20 History loratadine 10 mg PO HS 10/30/19 06/08/20 History losartan 100 mg PO HS 10/30/19 06/08/20 History pantoprazole 40 mg PO QAM 10/30/19 06/08/20 History prasugrel 10 mg PO QAM 10/30/19 06/08/20 History nitroglycerin 0.4 mg SL Q5M PRN #1 btl 10/31/19 06/08/20 Rx magnesium oxide 400 mg (241.3 mg 400 mg PO .COMPLEX tab 11/04/19 06/08/20 History magnesium) tablet insulin aspart U-100 100 unit/mL See Rx Instructions .ROUTE 01/02/20 06/08/20 Rx subcutaneous solution .COMPLEX #70 ml ranolazine 1,000 mg 1,000 mg PO BID #180 tab 04/22/20 06/08/20 Rx tablet,extended release,12 hr carvedilol 12.5 mg tablet 12.5 mg PO BID #60 tab 04/30/20 06/08/20 Rx nitroglycerin 0.6 mg/hr 1 patch TD DAILY #90 ea 05/12/20 06/08/20 Rx transdermal 24 hour patch Patient History Medical History Benign essential HTN CAD (coronary artery disease) DM I (diabetes mellitus, type I) Elevated PSA Exertional angina Hypercholesterolemia (Acute) Long-term insulin use Osteoarthritis Surgical History H/O coronary artery bypass surgery H/O sinus surgery History of coronary artery stent placement Hx of cholecystectomy Stented coronary artery (Resolved) Family History Mother Stroke Thyroid disease Myocardial infarction Father Myocardial infarction Brother Coronary heart disease CABG and PCI in mid 50s Son Cancer Testicular cancer Social History Preferred Language: [place]an Communication Ability: Effective Sulfur Burner Required: No Beliefs That Will Affect Care: None marital status: Current Living Situation: Spouse current occupational status: retired 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[employer], 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 Other Information That Helps Us Care for You: No Feels Safe at Home: Yes Safety Concerns: Feels Safe At This Time Smoking Status: Never smoker Second Hand Exposure: No ; Hx Alcohol Use: No Hx Substance Use: No Childhood Exposure to Second-Hand Smoke: No caffeine: Yes (coffee) during the past year weight has: remained stable Dental Care, Regularly: Yes Physical Activity Frequency: 5-6 Times per Week Seatbelt Use: always Sunscreen Use: No Do you think of yourself as: straight/heterosexual Review of Systems Review of Systems: All systems reviewed & are unremarkable except as noted in HPI & below Physical Exam Physical Exam: The patient is alert and oriented. Mood and affect appeared normal. He answered all questions appropriately. HEENT: Pupils are equal and reactive to light and accommodation. Extraocular movements are intact. The sclerae are anicteric. Neuro: Cranial nerves intact Neck: Patient's neck is supple. He has palpable carotid pulses bilaterally without bruits on auscultation. There is no evidence of jugular venous distention. The thyroid is not enlarged. Lungs: Clear to auscultation bilaterally. He has good air movement without use of accessory muscles. No rales wheezes or rhonchi. Cardiac: Heart demonstrates a regular rate and rhythm. Normal S1 and S2. No murmurs on examination. Pulses: The patient has palpable radial pulses, right greater than left in intensity. Normal right femoral pulse without bruit. Extremities: There was no evidence of hypoperfusion. There is no cyanosis or clubbing. There is no edema. Skin: I did not appreciate any rashes on examination today. Results & Data ([facility]) Vital Signs (Past 12 Hours) Vital Signs Temp Pulse Pulse Resp BP BP Pulse Ox 06/09/20 10:58 36.6 C 49 L 18 108/49 L 96 06/09/20 08:05 36.7 C 52 L 19 152/62 H 95 06/09/20 03:52 36.3 C L 50 L 18 133/63 93 06/09/20 01:59 06/09/20 01:55 36.3 C L 56 L 16 156/65 H 94 06/09/20 01:38 55 L 16 125/58 L 93 06/09/20 01:30 50 L 16 122/49 L 93 06/09/20 00:31 53 L 16 120/53 L 94 06/09/20 00:00 52 L Pulse Ox 06/09/20 10:58 06/09/20 08:05 06/09/20 03:52 06/09/20 01:59 94 06/09/20 01:55 06/09/20 01:38 06/09/20 01:30 06/09/20 00:31 06/09/20 00:00 Laboratory Results Abnormal Lab Results 06/08/20 06/08/20 06/08/20 23:30 23:30 23:30 WBC 8.18 RBC 3.88 L Hgb 12.2 L Hct 34.9 L MCV 89.9 MCH 31.4 MCHC 35.0 RDW Std Deviation 42.5 RDW Coeff of Shadia 13.0 Plt Count 223 MPV 8.9 Immature Gran % (Auto) 0.2 Neut % (Auto) 58.1 Lymph % (Auto) 23.2 [place] % (Auto) 12.1 Eos % (Auto) 5.7 Baso % (Auto) 0.7 Neut # (Auto) 4.74 Lymph # (Auto) 1.90 [place] # (Auto) 0.99 H Eos # (Auto) 0.47 Baso # (Auto) 0.06 Immature Gran # (Auto) 0.02 PT 11.0 INR 1.0 APTT 26.1 PTT Ratio 0.9 Sodium 138 Potassium 4.1 Chloride 107 Carbon Dioxide 27 Anion Gap 4.0 BUN 23 H Creatinine 1.25 Est Cr Clr Drug Dosing 54.7 Est GFR ( Amer) 69.1 Est GFR (Non-Af Amer) 59.6 BUN/Creatinine Ratio 18.4 Glucose 236 H POC Glucose Calcium 8.5 Phosphorus Magnesium 2.2 Total Bilirubin 0.4 AST 17 ALT 21 Alkaline Phosphatase 54 Troponin I < 0.015 NT-Pro-B Natriuret Pep 228 Total Protein 6.9 Albumin 3.3 L Globulin 3.6 Albumin/Globulin Ratio 0.9 Lipase 86 TSH 7.280 H Free T4 0.89 Urine Color Urine Appearance Urine pH Ur Specific [place] Urine Protein Urine Glucose (UA) Urine Ketones Urine Blood Urine Nitrite Urine Bilirubin Urine Urobilinogen Ur Leukocyte Esterase 06/09/20 06/09/20 06/09/20 00:50 02:05 07:23 WBC RBC Hgb Hct MCV MCH MCHC RDW Std Deviation RDW Coeff of Shadia Plt Count MPV Immature Gran % (Auto) Neut % (Auto) Lymph % (Auto) [place] % (Auto) Eos % (Auto) Baso % (Auto) Neut # (Auto) Lymph # (Auto) [place] # (Auto) Eos # (Auto) Baso # (Auto) Immature Gran # (Auto) PT 11.3 INR 1.1 APTT PTT Ratio Sodium Potassium Chloride Carbon Dioxide Anion Gap BUN Creatinine Est Cr Clr Drug Dosing Est GFR ( Amer) Est GFR (Non-Af Amer) BUN/Creatinine Ratio Glucose POC Glucose 244 H Calcium Phosphorus Magnesium Total Bilirubin AST ALT Alkaline Phosphatase Troponin I NT-Pro-B Natriuret Pep Total Protein Albumin Globulin Albumin/Globulin Ratio Lipase TSH Free T4 Urine Color Yellow Urine Appearance Clear Urine pH 6.5 Ur Specific [place] 1.020 Urine Protein Negative Urine Glucose (UA) 2+ H Urine Ketones Negative Urine Blood Negative Urine Nitrite Negative Urine Bilirubin Negative Urine Urobilinogen Negative Ur Leukocyte Esterase Negative 06/09/20 06/09/20 06/09/20 07:23 07:23 07:38 WBC RBC Hgb Hct MCV MCH MCHC RDW Std Deviation RDW Coeff of Shadia Plt Count MPV Immature Gran % (Auto) Neut % (Auto) Lymph % (Auto) [place] % (Auto) Eos % (Auto) Baso % (Auto) Neut # (Auto) Lymph # (Auto) [place] # (Auto) Eos # (Auto) Baso # (Auto) Immature Gran # (Auto) PT INR APTT PTT Ratio Sodium 140 Potassium 4.1 Chloride 111 H Carbon Dioxide 25 Anion Gap 4.0 BUN 18 Creatinine 1.00 Est Cr Clr Drug Dosing 68.0 Est GFR ( Amer) 90.5 Est GFR (Non-Af Amer) 78.1 BUN/Creatinine Ratio 18.3 Glucose 149 H POC Glucose 154 H Calcium 8.7 Phosphorus 2.7 Magnesium Total Bilirubin AST ALT Alkaline Phosphatase Troponin I < 0.015 NT-Pro-B Natriuret Pep Total Protein Albumin 3.3 L Globulin Albumin/Globulin Ratio Lipase TSH Free T4 Urine Color Urine Appearance Urine pH Ur Specific [place] Urine Protein Urine Glucose (UA) Urine Ketones Urine Blood Urine Nitrite Urine Bilirubin Urine Urobilinogen Ur Leukocyte Esterase 06/09/20 09:04 WBC RBC Hgb Hct MCV MCH MCHC RDW Std Deviation RDW Coeff of Shadia Plt Count MPV Immature Gran % (Auto) Neut % (Auto) Lymph % (Auto) [place] % (Auto) Eos % (Auto) Baso % (Auto) Neut # (Auto) Lymph # (Auto) [place] # (Auto) Eos # (Auto) Baso # (Auto) Immature Gran # (Auto) PT INR APTT 36.2 H PTT Ratio 1.3 Sodium Potassium Chloride Carbon Dioxide Anion Gap BUN Creatinine Est Cr Clr Drug Dosing Est GFR ( Amer) Est GFR (Non-Af Amer) BUN/Creatinine Ratio Glucose POC Glucose Calcium Phosphorus Magnesium Total Bilirubin AST ALT Alkaline Phosphatase Troponin I NT-Pro-B Natriuret Pep Total Protein Albumin Globulin Albumin/Globulin Ratio Lipase TSH Free T4 Urine Color Urine Appearance Urine pH Ur Specific [place] Urine Protein Urine Glucose (UA) Urine Ketones Urine Blood Urine Nitrite Urine Bilirubin Urine Urobilinogen Ur Leukocyte Esterase Diagnostic Findings Chest x-ray obtained at time admission not reveal any acute cardiopulmonary dise ase. ECG Additional Comments: EKG obtained at the time of admission was normal sinus rhythm without acute ST or T-wave changes PG Care Time/CCT Total # of Minutes Spent Total Time Spent with Patient: Total time spent is greater than 50% in coordination of care (as documented) at patient's floor/unit and/or counseling patient: Coding Diagnoses Chest pain at rest R07.9 Exertional angina I20.8 CAD (coronary artery disease) I25.10
[2020-06-09 18:09] LABS: Partial Thromboplastin Ratio 2.3
--- NOTE | 2020-06-09 18:51 | XCELERA ---
[id number]
[2020-06-09 18:52] LABS: Partial Thromboplastin Time 63.9 Seconds (21.0-31.0)
--- NOTE | 2020-06-09 19:15 | Electrocardiogram Report ---
Test Reason : Blood Pressure : / mmHG Vent. Rate : 054 BPM Atrial Rate : 054 BPM P-R Int : 192 ms QRS Dur : 106 ms QT Int : 434 ms P-R-T Axes : 003 012 044 degrees QTc Int : 411 ms Sinus bradycardia Otherwise normal ECG When compared with ECG of 30-OCT-2019 08:32, No significant change was found Confirmed by Jose Francisco Cuellar ([id number]) on 06/09/2020 7:14:43 PM Referred By: REFERRED SELF Confirmed By:Obie Cuellar
[2020-06-09] MEDS ORDERED: LOSARTAN POTASSIUM 50 MG TAB PO SCH (21:00)
[2020-06-09] MEDS ORDERED: ATORVASTATIN 40 MG TAB PO SCH (21:00)
[2020-06-09] MEDS ORDERED: TERAZOSIN HCL 1 MG CAP PO SCH (21:00)
[2020-06-09] MEDS ORDERED: LORATADINE 10 MG TAB PO SCH (21:00)
[2020-06-10] MEDS: HEPARIN SODIUM/DEXTROSE 25,000 UNITS/500 ML BAG IV SCH (02:47)
[2020-06-10 06:21] LABS: Basophils # (auto) 0.09 K/uL (0-0.2); Basophils % (auto) 1.3 %; Eosinophils # (auto) 0.43 K/uL (0-0.5); Eosinophils % (auto) 6.3 %; Hematocrit (blood only) 36.5 % (42-52); Hemoglobin 12.5 g/dL (14.0-18.0); Immature Granulocytes # (auto) 0.01 K/uL (0.00-0.02); Immature Granulocytes % (auto) 0.1 %; Mean Corpuscular Hemoglobin 30.8 pg (25-34); Mean Corpuscular Hgb Conc 34.2 g/dL (32-36); Mean Corpuscular Volume 89.9 fL (80-100); Mean Platelet Volume 9.6 fL (7.4-10.4); Monocytes # (auto) 0.54 K/uL (0.11-0.59); Neutrophils # (auto) 3.82 K/uL (1.4-6.5); Neutrophils % (auto) 56.3 %; Platelet Count 214 K/uL (130-400); RDW Coefficient of Variation 13.1 % (11.5-14.5); RDW Standard Deviation 42.3 fL (36.4-46.3); Red Blood Count 4.06 M/uL (4.7-6.1); White Blood Count 6.79 K/uL (4.8-10.8)
[2020-06-10 06:25] LABS: INR 1.1 (0.9-1.1); Partial Thromboplastin Ratio 1.9; Prothrombin Time 11.1 Seconds (9.0-12.0)
[2020-06-10 06:27] LABS: Partial Thromboplastin Time 53.2 Seconds (21.0-31.0)
[2020-06-10 06:31] LABS: Albumin Level 3.1 gm/dl (3.4-5.0); BUN Creatinine Ratio 15.5 (10-20); Calcium 8.3 mg/dl (8.5-10.1); Creatinine Clr Calc Pharmacy 72.3 ml/min; Est GFR (African American) 97.5; Est GFR (Non-African American) 84.2; Magnesium 2.3 mg/dl (1.8-2.4); Potassium 4.2 mmol/L (3.5-5.1)
[2020-06-10 06:32] LABS: Phosphorus 2.9 mg/dl (2.5-4.9)
[2020-06-10] MEDS: NovoLOG INSULIN PUMP SCH ×2 (07:49→11:48)
--- NOTE | 2020-06-10 08:03 | Hospitalist Progress Note ---
Date of Service June 10, 2020 Assessment & Plan (1) Unstable angina: Unstable angina/three-vessel CAD/hypertension/stented coronary artery- This patient is had a favorable trend of his troponins. Cardiology does recommend additional heparin infusion and likely nuclear stress testing for alee luation of at risk myocardium Continue aspirin 81 mg daily, amlodipine 10 mg daily, carvedilol 12.5 mg p.o. twice daily, losartan 100 mg p.o. daily, nitroglycerin 0.6 mg/h transdermal 24- hour patch, prasugrel 10 mg daily and ranolazine 1000 mg extended release every 12 hours. some slight asymptomtic bracdycardia Echo shows preserved EF and diastolic dysfunction Dr. Hensley is directing his care. (2) 3-vessel CAD: See above (3) Hypercholesterolemia: Continue atorvastatin 80 mg p.o. at bedtime. (4) DM I (diabetes mellitus, type I): Continue insulin pump, with patient to determine coverages and notify nursing (5) GERD (gastroesophageal reflux disease): Continue pantoprazole 40 mg every morning (6) Long-term insulin use: See above (7) Benign essential HTN: See above (8) Stented coronary artery: See above Admission and Anticipated Discharge Date Admission Date: June 09, 2020 Subjective this pt has no further chest discomfort since presentation, he states that his discomfort did remind him of his initial cardiac event Review of Systems Review of Systems: No additional distress but does complain of some fatigue no headache, blurry or double vision no speech or swallowing issues no additional chest pain, pressure or palpitations no shortness of breath, cough or wheezes no abdominal pain, nausea or vomiting, diarrhea or constipation no dysuria, hematuria or frequency no focal joint pain or swelling no back pain, CVA tenderness or radicular pain no bruising, bleeding or rashes no focal signs of weakness or numbness or altered sensation no complaints or anxiety or depression. Physical Exam Physical Exam: The patient appeared well nourished and normally developed. Vital signs as documented. Head exam is normocephalic atraumatic no scleral icterus Neck is without JVD, thyromegaly, or carotid bruits. Lungs are clear to auscultation, no focal loss of breath sounds Cardiac exam, Rhythm is regular.. No murmurs, rubs or gallops. Abdominal exam reveals normal bowel sounds, soft non tender, no masses Extremities are nonedematous and both pedal pulses are normal. Neurologic exam is alert and oriented, no focal loss of strength or sensation Skin is without bruises or rashes Psychologically is without concerns for anxiety or depression Results & Data Results & Data ([facility]) Vital Signs (Past 12 Hours) Vital Signs Temp Pulse Resp BP Pulse Ox 06/10/20 07:18 97.9 F 48 L 16 133/67 92 06/10/20 04:12 97.7 F 48 L 16 123/58 L 95 06/10/20 00:03 97.5 F L 54 L 16 125/55 L 95 PG Care Time/CCT Total # of Minutes Spent Total Time Spent with Patient: Total time spent is greater than 50% in coordination of care (as documented) at patient's floor/unit and/or counseling patient: Coding Diagnoses Unstable angina I20.0 3-vessel CAD I25.10 Hypercholesterolemia E78.00 DM I (diabetes mellitus, type I) E10.9 GERD (gastroesophageal reflux disease) K21.9 Esophagitis presence: esophagitis presence not specified Long-term insulin use Z79.4 Benign essential HTN I10 Stented coronary artery Z95.5 (1) GERD (gastroesophageal reflux disease) Esophagitis presence: esophagitis presence not specified Qualified Code(s): K21.9 - Gastro-esophageal reflux disease without esophagitis
[2020-06-10] MEDS ORDERED: REGADENOSON 0.4 MG/5 ML SYR IV ONE (08:07)
[2020-06-10] MEDS: RANOLAZINE 500 MG ER TAB PO SCH (10:41)
[2020-06-10] MEDS: carvediloL 12.5 MG TAB PO SCH (10:41)
[2020-06-10] MEDS: CITALOPRAM 20 MG TAB PO SCH (10:41)
[2020-06-10] MEDS: PRASugrel TAB 10 MG TAB PO SCH (10:41)
[2020-06-10] MEDS: PANTOprazole 40 MG TAB PO SCH (10:41)
[2020-06-10] MEDS: AMLODIPINE BESYLATE 5 MG TAB PO SCH (10:42)
[2020-06-10] MEDS: ASPIRIN 81 MG ECTAB PO SCH (10:42)
[2020-06-10] MEDS: NITROGLYCERIN 0.6 MG/HR PATCH TD SCH (10:42)
--- NOTE | 2020-06-10 12:56 | Myocardial Perfusion Study ---
Date of Service June 10, 2020 Myocardial Perfusion Study [facility] Myocardial Perfusion Study Report Procedure: 1. Myocardial perfusion study performed in multiple views/images 2. Lexiscan pharmacologic stress ECG Indications: 1. Chest pain 2. CAD Ordering physician: Dr. Cuellar Procedural details: For the stress portion of the study, Lexiscan 0.4 mg was intravenously administered followed by a saline flush. This was followed by 32.5 mCi of technetium 99m Cardiolite, injected at 9:35 a.m. on 06/10/2020. 30 minutes following the injection, imaging of the heart was performed in multiple projections. For the rest portion of the study, 10.4 mCi technetium 99m Cardiolite was injected intravenously at 7:46 a.m. on 06/10/2020. 1 hour following the injection, imaging of the heart was performed in the same projections. Lexiscan stress ECG: Continuous ECG monitoring was performed with supervision and interpretation. Resting ECG demonstrated: Sinus bradycardia 48 bpm Maximum heart rate: 64 bpm Maximal, age-predicted heart rate: 41 % Resting blood pressure: 169/64 mmHg Maximum blood pressure: 169/[address] changes: None Arrhythmia: None Symptoms: Shortness of breath Findings: Rotating raw imaging demonstrated no significant lung uptake. There is no significant motion artifact. Heart size appeared normal. Myocardial perfusion demonstrated a moderate-sized area of mildly to moderately reduced uptake involving the basal anterolateral wall, basal to distal lateral wall, and basal to distal inferolateral wall segments. These defects were fixed at the base with reversibility of the distal lateral and distal inferolateral wall segments and partial reversibility involving the mid lateral and mid inferolateral wall segments. Other wall segments appeared to have normal myocardial perfusion. Ejection fraction: 61 % Wall motion: Normal No significant transient ischemic dilation. Impression: 1. Abnormal myocardial perfusion study suggesting Mid to distal inferolateral and mid to distal lateral wall ischemia. Possible prior infarct involving the basal inferolateral, basal lateral, and basal anterolateral wall segments, verses artifact given normal wall motion. 2. Normal wall motion and LV systolic function. EF 61%. 3. Lexiscan induced shortness of breath. 4. Nondiagnostic Lexiscan ECG. [facility] Myocardial perfusion code Procedure Code Procedure 1: Myocardial Perfusion Codes: 02373 Cardiovascular Stress Test, multiple Procedure 2: Myocardial Perfusion Codes: 08710 Cardiovascular Stress Test, supervision only Procedure 3: Myocardial Perfusion Codes: 54590 Cardiovascular Stress Test, interpretation and report
--- NOTE | 2020-06-10 17:38 | Discharge Summary ---
Date of Service June 10, 2020 Admission HPI Per Admitting Provider The patient is a 64-year-old male with a past medical history including hypercholesterolemia, diabetes mellitus, GERD, exertional chest pain, three- vessel CAD, adjustment disorder, history of CABG, elevated PSA, diabetes mellitus type 1, hypertension and stented coronary artery. He reports that during the middle of last week, about 6 days ago, he had 2 days where he had back to back chest discomfort that was relieved by a single sublingual nitroglycerin. He had an additional episode 3 days ago that was relieved by 2 sublingual nitroglycerin. Jaziel's episode of chest discomfort awoke him from sleep, did not get better with 2 sublingual nitroglycerin of his own, and did finally resolve with additional 2 siblings nitroglycerin in route to the ED via EMS. Principal Diagnosis Chest pain with negative stress test Underlying medical management for coronary artery disease Discharge Exam The patient appeared well Vital signs as documented. Lungs are clear to auscultation and appear unlabored Cardiac exam, Rhythm is regular.. No murmurs, rubs or gallops. Abdominal exam reveals normal bowel sounds, soft non tender, no masses Extremities are nonedematous and both pedal pulses are normal. Neurologic exam is alert and oriented, no focal loss of strength or sensation Skin is without bruises or rashes Psychologically is without concerns for anxiety or depression Discharge Data Allergies Allergy/AdvReac Type Severity Reaction Status Date / Time clopidogrel Allergy Unknown HIVES Verified 06/08/20 23:40 terbinafine Allergy Unknown HIVES Verified 06/08/20 23:40 lisinopril Allergy Unknown Verified 06/08/20 23:40 Consultations 06/09/20 00:56 ED Decision to Admit Stat 06/09/20 01:59 Consult Cardiology Routine Consult Case Management - Discharge Planning Routine Hospital Course (1) Unstable angina: Unstable angina/three-vessel CAD/hypertension/stented coronary artery- This patient is had a favorable trend of his troponins. Cardiology does recommend additional heparin infusion and likely nuclear stress testing for evaluation of at risk myocardium Continue aspirin 81 mg daily, amlodipine 10 mg daily, carvedilol 12.5 mg p.o. twice daily, losartan 100 mg p.o. daily, nitroglycerin 0.6 mg/h transdermal 24- hour patch, prasugrel 10 mg daily and ranolazine 1000 mg extended release every 12 hours. some slight asymptomtic bracdycardia Echo shows preserved EF and diastolic dysfunction Patient did have a nuclear perfusion stress test without reversible ischemia recommendations are continuing therapy no medication changes Dr. Hensley is directing his care and will have close outpatient follow-up. (2) 3-vessel CAD: See above (3) Hypercholesterolemia: Continue atorvastatin 80 mg p.o. at bedtime. (4) DM I (diabetes mellitus, type I): Continue insulin pump, with patient to determine coverages and notify nursing (5) GERD (gastroesophageal reflux disease): Continue pantoprazole 40 mg every morning (6) Long-term insulin use: See above (7) Benign essential HTN: See above (8) Stented coronary artery: See above Total Time Total Time Spent Total Time Spent (In Minutes): It required greater than 30 minutes to prepare this patient for discharge Discharge Plan Discharge Items Patient Disposition: Home - Self-Care Reason For Visit: UNSTABLE ANGINA Discharge Diagnosis: unstable angina Activity: Resume your previous activity Non-emergency contact: Primary Care Provider Call non-emergency contact if: you have any medication questions and your symptoms worsen Follow-up/Referrals: Josue Romeo MD [Primary Care Provider] - Diet: Carb Count or DM1 Addtl Attending Provider Instructions: please resume your usual medical regimen and 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 Pending Studies at Discharge: No Stand-Alone Forms: My [employer], Smoking Cessation Medications and DC Order Prescriptions: Continued terazosin 1 mg capsule 1 mg PO HS Qty: 90 RF: 3 (DME) OneTouch Ultra Blue Test Strip strip See Dose Instructions .ROUTE .MEDSUPPLY Qty: 3 RF: 3 insulin aspart U-100 100 unit/mL solution See Rx Instructions .ROUTE .COMPLEX Qty: 70 RF: 3 carvedilol 12.5 mg tablet 12.5 mg PO BID Qty: 60 RF: 5 (DME) lancets [OneTouch UltraSoft Lancets] misc See Dose Instructions .ROUTE .MEDSUPPLY Qty: 100 RF: 5 magnesium oxide 400 mg (241.3 mg magnesium) tablet 400 mg PO .COMPLEX RF: 0 nitroglycerin 0.6 mg/hr patch 24 hour 1 patch TD DAILY Qty: 90 RF: 3 ranolazine 1,000 mg tablet extended release 12 hr 1,000 mg PO BID Qty: 180 RF: 3 atorvastatin 80 mg tablet 80 mg PO HS RF: 0 citalopram 10 mg tablet 10 mg PO QAM RF: 0 aspirin 81 mg Tablet,Delayed Release (Dr/Ec) 81 mg PO QAM RF: 0 amlodipine 10 mg tablet 10 mg PO QAM RF: 0 pantoprazole 40 mg tablet,delayed release (DR/EC) 40 mg PO QAM RF: 0 losartan 100 mg tablet 100 mg PO HS RF: 0 loratadine 10 mg tablet 10 mg PO HS RF: 0 prasugrel 10 mg tablet 10 mg PO QAM RF: 0 nitroglycerin 0.4 mg tablet, sublingual 0.4 mg SL Q5M PRN (Reason: Chest Pain) Qty: 1 RF: 0 Discharge Orders: Discharge Order (Routine); Ordered 06/10/20 Ordered By: Pieter Pryor Admission Data Admit Date/Time: 06/09/20 01:20 Attending Provider: Pieter Pryor Admit Provider: Raudel Hein Primary Care Provider: Josue Romeo Other Providers: Ramakrishna Hensley ; Raudel Hein Other Interventions: Discharge Summary Assessment (RN) Last Done: 06/10/20 14:12 DC Date/Time DO NOT enter until pt leaves facility: 06/10/20 15:14 Coding Level of Care Code D/C Day Management >30 mins Diagnoses Unstable angina I20.0 3-vessel CAD I25.10 Hypercholesterolemia E78.00 DM I (diabetes mellitus, type I) E10.9 GERD (gastroesophageal reflux disease) K21.9 Esophagitis presence: esophagitis presence not specified Long-term insulin use Z79.4 Benign essential HTN I10 Stented coronary artery Z95.5
--- NOTE | 2020-06-10 19:00 | Electrocardiogram Report ---
Test Reason : Blood Pressure : / mmHG Vent. Rate : 047 BPM Atrial Rate : 047 BPM P-R Int : 206 ms QRS Dur : 100 ms QT Int : 436 ms P-R-T Axes : 020 -01 062 degrees QTc Int : 385 ms Sinus bradycardia Poor R wave progression, consider anterior PA vs. lead placement vs. LVH Abnormal ECG When compared with ECG of 08-JUN-2020 23:17, No significant change was found Confirmed by Jose Francisco Cuellar ([id number] on 06/10/2020 7:00:06 PM Referred By: REFERRED SELF Confirmed By:Obie Cuellar
== END 2020-06-10 15:14 | disposition home or self-care (01) | DRG 303 ==
LOC: ED 23:10 → 2S 06-09 01:20 → SUATTDRO 06-09 01:20 → 2S 06-09 01:38